=== PATIENT | male | born 1960 | race Caucasian/White ===

== ENCOUNTER 2020-02-26 10:45 | Inpatient (IN) ==
[2020-02-26 10:52] VITALS: BMI 24.0
[2020-02-26] MEDS ORDERED: NS 1000 ML 1,000 ML IV ONE (12:44)
[2020-02-26] MEDS ORDERED: REGLAN INJ 10 MG VIAL IVP ONE (12:45)
[2020-02-26 12:50] LABS: BASOPHILS # (AUTO) 0.1 X10^3/uL (0.0-0.1); BASOPHILS % (AUTO) 0.8 % (0.2-1.0); EOSINOPHILS # (AUTO) 1.5 x10^3/uL (0.0-0.2); EOSINOPHILS % (AUTO) 10.7 % (0.9-2.9); HEMATOCRIT 42.4 % (42.0-54.0); LYMPHOCYTES # (AUTO) 1.7 X10^3/uL (1.3-2.9); LYMPHOCYTES % (AUTO) 12.1 % (21.0-51.0); MEAN CORPUSCULAR HEMOGLOBIN 29.3 pg (27.0-34.0); MEAN CORPUSCULAR HGB CONC 32.9 g/dL (33.0-35.0); MEAN CORPUSCULAR VOLUME 88.9 fL (80.0-100.0); MEAN PLATELET VOLUME 6.4 fL (7.4-11.0); MONOCYTES # (AUTO) 1.6 x10^3/uL (0.3-0.8); MONOCYTES % (AUTO) 10.9 % (0.0-13.0); NEUTROPHILS # (AUTO) 9.3 x10^3/uL (2.2-4.8); NEUTROPHILS % (AUTO) 65.5 % (42.0-75.0); PLATELET COUNT 340 X10^3/uL (150.0-450.0); RED BLOOD COUNT 4.77 X10^6/uL (4.7-6.0); RED CELL DISTRIBUTION WIDTH 16.5 % (11.6-16.5); WHITE BLOOD COUNT 14.2 X10^3/uL (3.6-10.0)
[2020-02-26 12:54] LABS: ALANINE AMINOTRANSFERASE 230 Units/L (12-78); ALBUMIN 3.4 g/dL (3.4-5.0); ALKALINE PHOSPHATASE 421 Units/L (46-116); ASPARTATE AMINO TRANSFERASE 108 Units/L (15-37); BLOOD UREA NITROGEN 28 mg/dL (7-18); CALCIUM 8.9 mg/dL (8.5-10.1); CARBON DIOXIDE 27.8 mmol/L (21-32); CHLORIDE 103 mmol/L (98-107); COR NA(FOR HYPERGLY) 139 mmol/L (136-145); CREATININE 1.21 mg/dL (0.70-1.30); SODIUM 138 mmol/L (136-145); TOTAL PROTEIN 6.5 g/dL (6.4-8.2); eGFR NON BLACK RACES > 60 (>60)
--- NOTE | 2020-02-26 12:58 | DR.DIARMA ---
HPI Time seen Time Seen by Provider: 02/26/20 10:56 PCP Primary Care Physician: NOA LANDRUM Complaint Chief Complaint Doctor Comments: Patient can eat solid food but it runs through him per family. Chief Complaint:: PT. C/O DIARRHEA SINCE 01/12/20. PT. C/O ABDOMINAL PAIN. PT. HAS BEEN TAKING LOMOTIL NEEDED WITH NO IMPROVEMENT. PT. HAS NOT BEEN EATING SOLID FOOD. PT. HAS ONLY BEEN DRINKING BOOST. COVID-19 Coronavirus risk:travel/contact w/high risk person: No Has patient experienced Coronavirus symptoms: No Reviewed Nurses notes reviewed: Yes Source History Provided: Patient and Family Member Mode of Arrival Mode of Arrival: Ambulatory Timing Onset of Chief Complaint: 02/16/20 Came on: Gradually Duration Duration: Intermittent How lon Duration: Weeks Quality Quality of Diarrhea: Watery Context Onset: Spontaneous Recent: denies Travel, Contact Exposure, Antibiotic use, Laxative use, Possible spoiled food and Shellfish Diarrhea history of: None Associated signs and symptoms Associated signs and symptoms: Abdominal pain (RLQ) If abdominal pain present Quality: Aching Location of Abdominal Pain: RLQ PMH PMH Past Medical History: Yes Past Medical History: Hypothyroidism Past Medical History Comment: LEUKEMIA , mental retardation Past Surgical History: Yes Surgical History: Appendectomy, Cholecystectomy and Other Past Surgical History Comment: SKIN CANCER REMOVAL Family History History of Family Medical Conditions: Yes Family Medical History: Heart Failure Social History Does patient currently use any type of tobacco product: No Have you used tobacco products in the last 12 months: No Type of Tobacco Use: None Does any household member use tobacco: No Alcohol Use: None Do you use any recreational Drugs:: No Lives With: Family Lives Where: Home Travel Risk Coronavirus risk:travel/contact w/high risk person: No Has patient experienced Coronavirus symptoms: No Infectious screening In the last 2 months have you had wt loss of >10#?: NO Have you had fever, night sweats or hemotysis?: No Have you traveled outside the country in the last 6 months?: No Isolation: Standard ROS Review of Systems Constitutional: No Symptoms Reported Eyes: No Symptoms Reported ENTM: No Symptoms Reported Respiratoy: No Symptoms Reported Cardiovascular: No Symptoms Reported Gastrointestinal/Abdominal: Abdominal Pain Genitourinary: No Symptoms Reported Neurological: No Symptoms Reported Musculoskeletal: No Symptoms Reported Integumentary: No Symptoms Reported Hematologic/Lymphatic: No Symptoms Reported Endocrine: No Symptoms Reported Psychiatric: No Symptoms Reported All Other Systems: Reviewed and Negative PE Vital Signs Vitals: Temperature 97.2 F Pulse Rate 100 Respiratory Rate 20 Blood Pressure [Right Arm] 102/69 Blood Pressure 118/77 O2 Sat by Pulse Oximetry 95 General Limitations: No Limitations General Appearance: Alert and In No Apparent Distress Head Head Exam: Normal Inspection, Atraumatic and Normocephalic Eyes Eye exam: Normal Appearance and EOMI ENT ENT Exam: Normal Exam and Normal Oropharynx Neck Neck Exam: Normal Inspection, Full ROM and Trachea Midline Chest Chest Inspection: Normal Inspection Respiratory Respiratory Exam: Normal Lung Sounds Bilat; negative Accessory Muscle Use Respiratory Exam: Bilateral: Clear to Auscultation Cardiovascular Cardiovascular Exam: Tachycardia Abdominal Exam Abdominal Exam: Normal Inspection, Normal Bowel Sounds, Soft and Tenderness (RLQ); negative Distention and Guarding Abdominal Tenderness: RLQ Rectal Rectal: Deferred Genitourinary Scrotum: Deferred Hernia: Deferred Prostate: Deferred Extremeties Extremities Exam: Normal Inspection and Full ROM Back Back Exam: Normal Inspection Neurologic Neurological Exam: Alert, Oriented X3 and CN II-XII Intact Psychiatric Psychiatric Exam: Normal Mood Skin Skin Exam: Normal Color ROR Labs Reviewed Result Diagrams: 02/26/20 12:15 02/26/20 12:15 Laboratory: 02/26/20 12:06 Stool - Final WBC 14.2 X10^3/uL (3.6-10.0) H 02/26/20 12:15 RBC 4.77 X10^6/uL (4.7-6.0) 02/26/20 12:15 Hgb 14.0 g/dL (13.5-18.0) 02/26/20 12:15 Hct 42.4 % (42.0-54.0) 02/26/20 12:15 MCV 88.9 fL (80.0-100.0) 02/26/20 12:15 MCH 29.3 pg (27.0-34.0) 02/26/20 12:15 MCHC 32.9 g/dL (33.0-35.0) L 02/26/20 12:15 RDW 16.5 % (11.6-16.5) 02/26/20 12:15 Plt Count 340 X10^3/uL (150.0-450.0) 02/26/20 12:15 MPV 6.4 fL (7.4-11.0) L 02/26/20 12:15 Neut % (Auto) 65.5 % (42.0-75.0) 02/26/20 12:15 Lymph % (Auto) 12.1 % (21.0-51.0) L 02/26/20 12:15 [place] % (Auto) 10.9 % (0.0-13.0) 02/26/20 12:15 Eos % (Auto) 10.7 % (0.9-2.9) H 02/26/20 12:15 Baso % (Auto) 0.8 % (0.2-1.0) 02/26/20 12:15 Neut # (Auto) 9.3 x10^3/uL (2.2-4.8) H 02/26/20 12:15 Lymph # (Auto) 1.7 X10^3/uL (1.3-2.9) 02/26/20 12:15 [place] # (Auto) 1.6 x10^3/uL (0.3-0.8) H 02/26/20 12:15 Eos # (Auto) 1.5 x10^3/uL (0.0-0.2) H 02/26/20 12:15 Baso # (Auto) 0.1 X10^3/uL (0.0-0.1) 02/26/20 12:15 Absolute Nucleated RBC 0.0 /100WBC 02/26/20 12:15 Sodium 138 mmol/L (136-145) 02/26/20 12:15 Corrected Sodium 139 mmol/L (136-145) 02/26/20 12:15 Potassium 3.7 mmol/L (3.5-5.1) 02/26/20 12:15 Chloride 103 mmol/L (98-107) 02/26/20 12:15 Carbon Dioxide 27.8 mmol/L (21-32) 02/26/20 12:15 BUN 28 mg/dL (7-18) H 02/26/20 12:15 Creatinine 1.21 mg/dL (0.70-1.30) 02/26/20 12:15 Est GFR (MDRD) Af Amer > 60 (>60) 02/26/20 12:15 Est GFR (MDRD) Non-Af > 60 (>60) 02/26/20 12:15 Glucose 135 mg/dL (65-99) H 02/26/20 12:15 Calcium 8.9 mg/dL (8.5-10.1) 02/26/20 12:15 Corrected Calcium TNP 02/26/20 12:15 Total Bilirubin 1.00 mg/dL (0.2-1.0) 02/26/20 12:15 AST 108 Units/L (15-37) H 02/26/20 12:15 ALT 230 Units/L (12-78) H 02/26/20 12:15 Alkaline Phosphatase 421 Units/L (46-116) H 02/26/20 12:15 Total Protein 6.5 g/dL (6.4-8.2) 02/26/20 12:15 Albumin 3.4 g/dL (3.4-5.0) 02/26/20 12:15 Globulin 3.1 g/dL (2.5-4.5) 02/26/20 12:15 Albumin/Globulin Ratio 1.1 Ratio (1.1-2.1) 02/26/20 12:15 Lipase 92 Units/L (73-393) 02/26/20 12:15 Stool Description 20g liquid brown 02/26/20 12:06 Stl Occult Blood (IFOB) Positive (NEGATIVE) A 02/26/20 12:06 Stool for White Cells Positive (NEGATIVE) A 02/26/20 12:06 Stl C. diff Tox B Gene Negative (NEGATIVE) 02/26/20 12:06 Stl C. diff [id number] Negative (NEGATIVE) 02/26/20 12:06 XRAY XRAY Interpreted by: Radiologist X-ray Results: CT abdo/pelvis: liver lesions and cecum thickening with adenopathy Opioid Opioid Risk Tool Age (Sreekanth box if 16-45): No History of Preadolescent Sexual Abuse: No Total: 0 Total Score Risk Category: Low Risk Copyright: Mcfadden predicting aberrant behaviors
[2020-02-26] MEDS ORDERED: NS 1000 ML 1,000 ML ONE ×2 (13:05→17:36)
[2020-02-26] MEDS ORDERED: REGLAN INJ 10 MG VIAL ONE (13:05)
[2020-02-26] MEDS ORDERED: DEMEROL INJ IVP ONE (17:03)
--- NOTE | 2020-02-26 17:07 | CT ---
ABDOMEN/PELVIS WITH CONHISTORY: RLQ PAINComparison:NoneTechnique:Multiple axial images of the abdomen and pelvis were obtained from the lung bases to the pubic symphysis following the administration of IV contrast as well as oral contrast . Dose reduction techniques including Automated Exposure Control (AEC) and adjustment of mA and kV were utlized.Findings:The heart is normal in size. There is no pericardial effusion. Bibasilar perilymphatic/peribronchovascular thickening and nodularity with regions of peripheral atelectasis.There are innumerable irregular and hypoenhancing lesions within the liver. The spleen is enlarged. The largest liver lesion measures approximately 5.2 cm in the posterior right lobe on series 5, image 20. Lesions are present throughout both the right and left liver. There is some indistinct soft tissue throughout the thomas hepatis region. The portal vein is patent. No ductal dilitation. Gallbladder absent. The pancreas is unremarkable. Adrenal glands are normal. Enhancement of the right-sided ureteral lining is seen with some possible patchy hypo enhancement of the right kidneyThere is thickening the region of the cecum with some extensive peripheral adenopathy. Extensive retroperitoneal adenopathy mesenteric adenopathy also present. . No free fluid or fluid collections.The bladder is normal in appearance. Pelvic structures not well seen secondary to bilateral hip hardware. Bilateral abnormal pelvic lymph nodes are also present.No aggressive osseous lesions.IMPRESSION:1. Findings as above most concerning for metastatic malignancy, likely: Primary in the region of the cecum.2. Enhancement of the urothelium lining on the right with some patchy hypo enhancement of the right kidney. Ascending urinary tract infection cannot be excluded. Correlate clinically.Electronically signed by: WON LORENZO (Feb 26, 2020 17:05:30)
[2020-02-26] MEDS ORDERED: DEMEROL INJ ONE (17:15)
[2020-02-26] MEDS: NS 1000 ML 1,000 ML IV SCH (17:46)
[2020-02-26] MEDS: BUTT CREAM (COMPOUND) TOP PRN (22:47)
[2020-02-27] MEDS: NS 1000 ML 1,000 ML IV SCH ×5 (02:02→21:29)
[2020-02-27 06:08] LABS: BASOPHILS # (AUTO) 0.1 X10^3/uL (0.0-0.1); BASOPHILS % (AUTO) 0.6 % (0.2-1.0); EOSINOPHILS # (AUTO) 2.1 x10^3/uL (0.0-0.2); HEMATOCRIT 39.6 % (42.0-54.0); HEMOGLOBIN 12.9 g/dL (13.5-18.0); LYMPHOCYTES # (AUTO) 1.9 X10^3/uL (1.3-2.9); LYMPHOCYTES % (AUTO) 14.5 % (21.0-51.0); MEAN CORPUSCULAR HEMOGLOBIN 29.1 pg (27.0-34.0); MEAN CORPUSCULAR HGB CONC 32.6 g/dL (33.0-35.0); MEAN CORPUSCULAR VOLUME 89.3 fL (80.0-100.0); MEAN PLATELET VOLUME 6.4 fL (7.4-11.0); MONOCYTES # (AUTO) 1.7 x10^3/uL (0.3-0.8); MONOCYTES % (AUTO) 13.3 % (0.0-13.0); NEUTROPHILS # (AUTO) 7.1 x10^3/uL (2.2-4.8); NEUTROPHILS % (AUTO) 55.6 % (42.0-75.0); PLATELET COUNT 287 X10^3/uL (150.0-450.0); RED BLOOD COUNT 4.43 X10^6/uL (4.7-6.0); RED CELL DISTRIBUTION WIDTH 16.4 % (11.6-16.5); WHITE BLOOD COUNT 12.8 X10^3/uL (3.6-10.0)
[2020-02-27 06:10] LABS: ALANINE AMINOTRANSFERASE 187 Units/L (12-78); ALBUMIN 2.8 g/dL (3.4-5.0); ALKALINE PHOSPHATASE 345 Units/L (46-116); ASPARTATE AMINO TRANSFERASE 82 Units/L (15-37); BLOOD UREA NITROGEN 18 mg/dL (7-18); CALCIUM 7.8 mg/dL (8.5-10.1); CARBON DIOXIDE 24.2 mmol/L (21-32); CHLORIDE 105 mmol/L (98-107); COR CA(FOR HYPOALB) 8.8 mg/dL (8.5-10.1); CREATININE 0.94 mg/dL (0.70-1.30); SODIUM 137 mmol/L (136-145); TOTAL PROTEIN 5.6 g/dL (6.4-8.2); eGFR NON BLACK RACES > 60 (>60)
[2020-02-27] MEDS: ROCEPHIN VIAL 1 GRAM 1 G in NS 100 ML IV + SPIKE MINIBAG* 100 ML IV SCH (11:20)
[2020-02-27] MEDS: LOVENOX INJ 40 MG SYR SC SCH (11:21)
[2020-02-27] MEDS: DEMEROL INJ IVP PRN ×2 (16:17→21:29)
--- NOTE | 2020-02-27 19:36 | DR.H&P ---
H&P - History & Physical for Day of: H&P Date: 02/26/20 - Chief Complaint Chief Complaint: ABDOMINAL PAIN, DIARRHEA - History of Present Illness History of Present Illness: IS A 60 YEAR OLD PATIENT OF OURS WHO PRESENTED TO THE ER WITH COMPLAINT OF DIARRHEA SINCE 01/12/20 AND DIFFUSE ABDOMINAL PAIN. PATIENT IS INTILLECTUALLY CHALLENGED. HIS CAREGIVER REPORTS THAT HE HAS BEEN TAKING LOMOTIL NEEDED. SHE REPORTS HE HAS ONLY BEEN DRINKING BOOST AND HAS NOT BEEN EATING ANY SOLID FOOD. HE IS UNABLE TO APPROPRIATELY CHARACTERIZE HIS PAIN. PATIENT STATES, I DONT FEEL GOOD. HIS PMH INCLUDES HYPOTHYROIDISM, LYMPHOMA, MENTAL RETARDATION, APPENDECTOMY, AND CHOLECYSTECTOMY. ON ARRIVAL, VITALS WERE 97.2-100-17-95%-118/77. LABS WERE OBTAINED. ABNORMAL LAB VALUES INCLUDE THE FOLLOWING: WBC 14.2, BUN 28, GLUCOSE 135, AST 108, ALT 230, ALK PHOS 421. STOOL POSITIVE FOR OCCULT BLOOD AND WHITE CELLS. STOOL CULTURE WAS SET UP. AN ABDOMEN/PELVIS CT WITH CONTRAST WAS OBTAINED AND REVEALED: The heart is normal in size. There is no pericardial effusion. Bibasilar perilymphatic/peribronchovascular thickening and nodularity with regions of peripheral atelectasis. There are innumerable irregular and hypoenhancing lesions within the liver. The spleen is enlarged. The largest liver lesion measures approximately 5.2 cm in the posterior right lobe on series 5, image 20. Lesions are present throughout both the right and left liver. There is some indistinct soft tissue throughout the thomas hepatis region. The portal vein is patent. No ductal dilitation. Gallbladder absent. The pancreas is unremarkable. Adrenal glands are normal. Enhancement of the right-sided ureteral lining is seen with some possible patchy hypo enhancement of the right kidney. There is thickening the region of the cecum with some extensive peripheral adenopathy. Extensive retroperitoneal adenopathy mesenteric adenopathy also present. No free fluid or fluid collections. The bladder is normal in appearance. Pelvic structures not well seen secondary to bilateral hip hardware. Bilateral abnormal pelvic lymph nodes are also present. No aggressive osseous lesions. HE WAS GIVEN DEMEROL 25MG IV X 1, REGLAN 10MG IV X 1 DOSE, AND A NORMAL SALINE BOLUS. HE WAS ADMITTED FOR FURTHER EVALUATION AND TREATMENT OF METASTATIC CANCER TO LIVER, INTRACTABLE DIARRHEA, AND LEUKOCYTOSIS. HE WAS STARTED ON NS AT 125 ML/HR, CIPRO 1G IV DAILY, LOVENOX 40MG SC DAILY, DEMEROL 25MG IV Q4H PRN, AND ZOFRAN 25MG IV Q4H PRN. A CEA IS PENDING. OTHERWISE, WE PLAN TO FOLLOW UP WITH AM LABS AND CONTINUE TO MONITOR. - Past Medical History Past Medical History: Hypothyroidism Additional Medical History: , HX OF LYMPHOMA - Past Surgical History Surgical History: Appendectomy, Cholecystectomy, Ortho Surgery, Other - Family History Family Medical History: Heart Failure - Social History Does patient currently use any type of tobacco product: No Have you used tobacco products in the last 12 months: No Type of Tobacco Use: None Does any household member use tobacco: No Alcohol Use: None Drug Use: None - Medications Home Medications: levofloxacin [From Levaquin] Allergy (Verified 02/26/20 10:52) - Review of Systems Constitutional: Weakness Eyes: No Symptoms Reported ENT: No Symptoms Reported Respiratory: No Symptoms Reported Cardiovascular: No Symptoms Reported Gastrointestinal: See HPI, Nausea, Abdominal Pain, Diarrhea Genitourinary: No Symptoms Reported Musculoskeletal: No Symptoms Reported Skin: No Symptoms Reported Neurological: Weakness - Physical Exam Vital Signs: Temperature 98.2 F Pulse Rate [Bilateral Radial] 81 Pulse Rate 96 Respiratory Rate 20 Blood Pressure [Right Arm] 120/72 Blood Pressure 118/77 O2 Sat by Pulse Oximetry 96 Oriented: Person, Place Eyes: Normal Ear: Normal Nose: Normal Throat: Normal Respiratory: Diminished Throughout Cardiovascular: Normal : Normal Auscultation: Bowel Sounds: Increased Palpation: Normal Tenderness: Normal Skin: Normal Musculoskeletal: Normal Psychiatric: Normal Mood Description: Calm Affect: Normal Speech Pattern: Clear - Assessment/Plan (1) Metastatic disease Qualifiers: Area of secondary neoplastic involvement: unspecified site Qualified Code(s): C79.9 - Secondary malignant neoplasm of unspecified site Status: Acute Plan: ADMIT, NS AT 125 ML/HR, CIPRO 1G IV DAILY, LOVENOX 40MG SC DAILY, DEMEROL 25MG IV Q4H PRN, AND ZOFRAN 25MG IV Q4H PRN. (2) Intractable diarrhea Status: Acute Plan: STOOL CULTURE PENDING. ROCEPHIN 1G IV DAILY, CONTINUE TO MONITOR (3) Leukocytosis Qualifiers: Leukocytosis type: unspecified Qualified Code(s): D72.829 - Elevated white blood cell count, unspecified Status: Acute (4) History of lymphoma Status: Chronic - Allergies Allergies/Adverse Reactions: Allergies Allergy/AdvReac Type Severity Reaction Status Date / Time levofloxacin [From Levaquin] Allergy Verified 02/26/20 10:52
[2020-02-27 20:06] LABS: BILIRUBIN,URINE NEGATIVE (NEGATIVE); BLOOD/HEMOGLOBIN,URINE 1+ (NEGATIVE); GLUCOSE, URINE NEGATIVE (NEGATIVE); KETONES,URINE NEGATIVE (NEGATIVE); LEUKOCYTE ESTERASE ,URINE 3+ (NEGATIVE); NITRITES,URINE POSITIVE (NEGATIVE); PROTEIN,URINE 2+ (NEGATIVE); UROBILINOGEN,URINE NORMAL (NORMAL)
[2020-02-27 20:15] LABS: APPEARANCE,URINE CLEAR (CLEAR); COLOR,URINE YELLOW (YELLOW); SQUAMOUS EPITHELIAL CELL,UR NEGATIVE /HPF (NEGATIVE)
[2020-02-27 20:16] LABS: BACTERIA,URINE NEGATIVE /HPF (NEGATIVE)
[2020-02-28] MEDS: DEMEROL INJ IVP PRN ×3 (03:10→21:08)
[2020-02-28] MEDS: NS 1000 ML 1,000 ML IV SCH ×3 (03:16→16:15)
[2020-02-28 05:25] LABS: BASOPHILS # (AUTO) 0.1 X10^3/uL (0.0-0.1); BASOPHILS % (AUTO) 0.5 % (0.2-1.0); EOSINOPHILS # (AUTO) 2.4 x10^3/uL (0.0-0.2); EOSINOPHILS % (AUTO) 19.3 % (0.9-2.9); HEMATOCRIT 40.1 % (42.0-54.0); HEMOGLOBIN 12.9 g/dL (13.5-18.0); LYMPHOCYTES % (AUTO) 15.9 % (21.0-51.0); MEAN CORPUSCULAR HEMOGLOBIN 29.1 pg (27.0-34.0); MEAN CORPUSCULAR HGB CONC 32.1 g/dL (33.0-35.0); MEAN CORPUSCULAR VOLUME 90.7 fL (80.0-100.0); MEAN PLATELET VOLUME 6.8 fL (7.4-11.0); MONOCYTES # (AUTO) 1.7 x10^3/uL (0.3-0.8); MONOCYTES % (AUTO) 13.5 % (0.0-13.0); NEUTROPHILS # (AUTO) 6.3 x10^3/uL (2.2-4.8); NEUTROPHILS % (AUTO) 50.8 % (42.0-75.0); PLATELET COUNT 257 X10^3/uL (150.0-450.0); RED BLOOD COUNT 4.42 X10^6/uL (4.7-6.0); RED CELL DISTRIBUTION WIDTH 16.5 % (11.6-16.5); WHITE BLOOD COUNT 12.4 X10^3/uL (3.6-10.0)
[2020-02-28 05:41] LABS: ALANINE AMINOTRANSFERASE 151 Units/L (12-78); ALBUMIN 2.6 g/dL (3.4-5.0); ALKALINE PHOSPHATASE 306 Units/L (46-116); ASPARTATE AMINO TRANSFERASE 56 Units/L (15-37); BLOOD UREA NITROGEN 11 mg/dL (7-18); CALCIUM 7.5 mg/dL (8.5-10.1); CARBON DIOXIDE 23.6 mmol/L (21-32); CHLORIDE 106 mmol/L (98-107); COR CA(FOR HYPOALB) 8.6 mg/dL (8.5-10.1); CREATININE 0.92 mg/dL (0.70-1.30); SODIUM 138 mmol/L (136-145); TOTAL PROTEIN 5.4 g/dL (6.4-8.2); eGFR NON BLACK RACES > 60 (>60)
[2020-02-28] MEDS ORDERED: KLOR-CON PO PRN (05:57)
[2020-02-28] MEDS ORDERED: POTASSIUM CHL 40 MEQ/NS 0.45% 500 ML IV PRN (05:57)
[2020-02-28] MEDS ORDERED: POTASSIUM CHL 60 MEQ/NS 0.45% 500 ML IV PRN (05:57)
[2020-02-28] MEDS ORDERED: K-DUR TAB 20 MEQ PO PRN (05:57)
[2020-02-28] MEDS ORDERED: K-RIDER 10 MEQ/NS 100 ML 10 MEQ/100 ML BAG IV PRN (05:57)
[2020-02-28] MEDS ORDERED: MICRO K EXTEN CAP 10 MEQ PO PRN (05:57)
[2020-02-28] MEDS ORDERED: POTASSIUM CHLORIDE LIQ 20 MEQ UDC PO PRN (05:57)
[2020-02-28] MEDS: ROCEPHIN VIAL 1 GRAM 1 G in NS 100 ML IV + SPIKE MINIBAG* 100 ML IV SCH (08:52)
[2020-02-28] MEDS: LOVENOX INJ 40 MG SYR SC SCH (08:53)
[2020-02-28] MEDS: FORTAZ or TAZICEF VIAL INJ 1 G in NS 100 ML IV + SPIKE MINIBAG* 100 ML IV SCH ×3 (13:45→21:11)
[2020-02-28] MEDS: LOMOTIL PO SCH ×2 (14:07→21:05)
[2020-02-29] MEDS: NS 1000 ML 1,000 ML IV SCH ×5 (00:47→22:29)
[2020-02-29] MEDS: DEMEROL INJ IVP PRN ×3 (01:42→19:40)
[2020-02-29 05:32] LABS: BASOPHILS % (AUTO) 0.3 % (0.2-1.0); EOSINOPHILS # (AUTO) 2.7 x10^3/uL (0.0-0.2); EOSINOPHILS % (AUTO) 21.8 % (0.9-2.9); HEMATOCRIT 39.9 % (42.0-54.0); HEMOGLOBIN 12.8 g/dL (13.5-18.0); LYMPHOCYTES # (AUTO) 1.9 X10^3/uL (1.3-2.9); LYMPHOCYTES % (AUTO) 15.6 % (21.0-51.0); MEAN CORPUSCULAR HEMOGLOBIN 29.2 pg (27.0-34.0); MEAN CORPUSCULAR HGB CONC 32.1 g/dL (33.0-35.0); MEAN CORPUSCULAR VOLUME 90.8 fL (80.0-100.0); MEAN PLATELET VOLUME 6.7 fL (7.4-11.0); MONOCYTES # (AUTO) 1.2 x10^3/uL (0.3-0.8); MONOCYTES % (AUTO) 10.2 % (0.0-13.0); NEUTROPHILS # (AUTO) 6.4 x10^3/uL (2.2-4.8); NEUTROPHILS % (AUTO) 52.1 % (42.0-75.0); PLATELET COUNT 253 X10^3/uL (150.0-450.0); RED CELL DISTRIBUTION WIDTH 16.5 % (11.6-16.5); WHITE BLOOD COUNT 12.2 X10^3/uL (3.6-10.0)
[2020-02-29 05:45] LABS: ALANINE AMINOTRANSFERASE 119 Units/L (12-78); ALBUMIN 2.4 g/dL (3.4-5.0); ALKALINE PHOSPHATASE 299 Units/L (46-116); ASPARTATE AMINO TRANSFERASE 48 Units/L (15-37); BLOOD UREA NITROGEN 8 mg/dL (7-18); CALCIUM 7.6 mg/dL (8.5-10.1); CARBON DIOXIDE 27.2 mmol/L (21-32); CHLORIDE 107 mmol/L (98-107); COR CA(FOR HYPOALB) 8.9 mg/dL (8.5-10.1); CREATININE 0.81 mg/dL (0.70-1.30); SODIUM 141 mmol/L (136-145); TOTAL PROTEIN 5.3 g/dL (6.4-8.2); eGFR NON BLACK RACES > 60 (>60)
[2020-02-29 05:56] LABS: BAND NEUTROPHILS % 1 % (0-10); PLATELET MORPHOLOGY COMMENT NORMAL (NORMAL)
[2020-02-29] MEDS: FORTAZ or TAZICEF VIAL INJ 1 G in NS 100 ML IV + SPIKE MINIBAG* 100 ML IV SCH ×3 (06:32→21:01)
[2020-02-29] MEDS: LOVENOX INJ 40 MG SYR SC SCH (10:10)
[2020-02-29] MEDS: LOMOTIL PO SCH ×2 (10:10→21:00)
--- NOTE | 2020-02-29 14:02 | PCM.PROG ---
Progress Note - Progress Note for Day of Date of Exam: 02/28/20 - Subjective Subjective: WAS ADMITTED FOR TREATMENT OF METASTATIC DISEASE, INTRACTABLE DIARRHEA, LEUKOCYTOSIS. HE HAS A HISTORY OF LYMPHOMA. TODAY, HE IS ALERT, LYING IN BED ON MORNING ROUNDS. HE CONTINUE WITH COMPLAINTS OF DIARRHEA TODAY. HE STATES, I DONT FEEL GOOD. I WANT TO STAY. ON EXAMINATION, HEART IS REGULAR IN RATE AND RHYTHM. BILATERAL LUNGS ARE NOTED WITH DIMINISHED LUNG SOUNDS THROUGHOUT. ABDOMEN IS ROUND, SOFT, AND NOTED WITH DIFFUSE TENDERNESS. INCREASED BOWEL SOUNDS NOTED. HIS VITALS THIS MORNING ARE: 98.2-76-20-91%NC-127/80. LABS WERE OBTAINED. ABNORMAL LAB VALUES INCLUDE THE FOLLOWING: WBC 12.4, RBC 4.42, HGB 12.9, HCT 40.1, POTASSIUM 3.4, CALCIUM 7.5, AST 56, ALT 151, ALK PHOS 306, TOTAL PROTEIN 5.4, ALBUMIN 2.6. STOOL CULTURES ARE PENDING. CEA IS PENDING. STOOL CULTURES ARE POSITIVE FOR OCCULT BLOOD AND WHITE CELLS. HE IS CURRENTLY RECEIVING NS AT 125 ML/HR, CIPRO 1G IV DAILY, LOVENOX 40MG SC DAILY, DEMEROL 25MG IV Q4H PRN, AND ZOFRAN 25MG IV Q4H PRN. WE WILL CONTINUE WITH CURRENT PLAN OF CARE TODAY AND ADD LOMOTIL 1 TAB PO BID. WE WILL DISCONTINUE THE CIPRO AND ADD FORTAZ 1G IV Q8H. OTHERWISE, WE WILL FOLLOW UP WITH AM LABS AND CONTINUE TO MONITOR. - Past Medical Family Social History Past Med/Fam/Surg Hx: No changes since H&P Allergies: Allergies levofloxacin [From Levaquin] Allergy (Verified 02/26/20 10:52) - Review of Systems ROS: No change since H&P - Vital Signs and I&O's Vital Signs: Temperature 98 F Pulse Rate [Bilateral Radial] 92 Pulse Rate 70 Respiratory Rate 18 Blood Pressure [Right Arm] 178/76 Blood Pressure 118/77 O2 Sat by Pulse Oximetry 100 Intake and Output: Intake & Output 02/27/20 02/28/20 02/29/20 03/01/20 11:59 11:59 11:59 11:59 Intake Total 2010 3216 / 3216 4882 / 4882 Output Total 475 / 475 525 / 525 900 / 900 Balance 1536 / 1536 2691 / 2691 3982 / 3982 - Physical Exam Oriented: Person, Place Eyes: Normal Ear: Normal Nose: Normal Throat: Normal Cardiovascular: Normal : Normal Auscultation: Bowel Sounds: Increased Palpation: Normal Tenderness: Normal Skin: Normal Musculoskeletal: Normal Psychiatric: Normal Mood Description: Calm Affect: Normal Speech Pattern: Clear, Appropriate - Laboratory and Diagnostics Result Diagrams: 02/29/20 04:14 02/29/20 04:14 Labs: 02/27/20 19:40 Urine,Clean Catch Urine Culture - Preliminary 02/26/20 12:06 Stool Stool Culture - Final 02/26/20 12:06 Stool - Final Laboratory WBC 12.2 X10^3/uL (3.6-10.0) H 02/29/20 04:14 RBC 4.40 X10^6/uL (4.7-6.0) L 02/29/20 04:14 Hgb 12.8 g/dL (13.5-18.0) L 02/29/20 04:14 Hct 39.9 % (42.0-54.0) L 02/29/20 04:14 MCV 90.8 fL (80.0-100.0) 02/29/20 04:14 MCH 29.2 pg (27.0-34.0) 02/29/20 04:14 MCHC 32.1 g/dL (33.0-35.0) L 02/29/20 04:14 RDW 16.5 % (11.6-16.5) 02/29/20 04:14 Plt Count 253 X10^3/uL (150.0-450.0) 02/29/20 04:14 Plt Count Comment Adequate (ADEQUATE) 02/29/20 04:14 MPV 6.7 fL (7.4-11.0) L 02/29/20 04:14 Neut % (Auto) 52.1 % (42.0-75.0) 02/29/20 04:14 Lymph % (Auto) 15.6 % (21.0-51.0) L 02/29/20 04:14 [place] % (Auto) 10.2 % (0.0-13.0) 02/29/20 04:14 Eos % (Auto) 21.8 % (0.9-2.9) H 02/29/20 04:14 Baso % (Auto) 0.3 % (0.2-1.0) 02/29/20 04:14 Neut # (Auto) 6.4 x10^3/uL (2.2-4.8) H 02/29/20 04:14 Lymph # (Auto) 1.9 X10^3/uL (1.3-2.9) 02/29/20 04:14 [place] # (Auto) 1.2 x10^3/uL (0.3-0.8) H 02/29/20 04:14 Eos # (Auto) 2.7 x10^3/uL (0.0-0.2) H 02/29/20 04:14 Baso # (Auto) 0.0 X10^3/uL (0.0-0.1) 02/29/20 04:14 Absolute Nucleated RBC 0.0 /100WBC 02/29/20 04:14 Total Counted 100 02/29/20 04:14 Neutrophils % (Manual) 48 % (39-76) 02/29/20 04:14 Band Neutrophils % 1 % (0-10) 02/29/20 04:14 Lymphocytes % (Manual) 15 % (13-43) 02/29/20 04:14 Monocytes % (Manual) 9 % (4-9) 02/29/20 04:14 Eosinophils % (Manual) 27 % (0-6) H 02/29/20 04:14 Plt Morphology Comment Normal (NORMAL) 02/29/20 04:14 RBC Morphology Normal (NORMAL) 02/29/20 04:14 Sodium 141 mmol/L (136-145) 02/29/20 04:14 Corrected Sodium TNP 02/29/20 04:14 Potassium 3.8 mmol/L (3.5-5.1) 02/29/20 04:14 Chloride 107 mmol/L (98-107) 02/29/20 04:14 Carbon Dioxide 27.2 mmol/L (21-32) 02/29/20 04:14 BUN 8 mg/dL (7-18) 02/29/20 04:14 Creatinine 0.81 mg/dL (0.70-1.30) 02/29/20 04:14 Est GFR (MDRD) Af Amer > 60 (>60) 02/29/20 04:14 Est GFR (MDRD) Non-Af > 60 (>60) 02/29/20 04:14 Glucose 90 mg/dL (65-99) 02/29/20 04:14 Calcium 7.6 mg/dL (8.5-10.1) L 02/29/20 04:14 Corrected Calcium 8.9 mg/dL (8.5-10.1) 02/29/20 04:14 Magnesium 1.7 mg/dL (1.7-2.9) 02/28/20 04:28 Total Bilirubin 0.50 mg/dL (0.2-1.0) 02/29/20 04:14 AST 48 Units/L (15-37) H 02/29/20 04:14 ALT 119 Units/L (12-78) H 02/29/20 04:14 Alkaline Phosphatase 299 Units/L (46-116) H 02/29/20 04:14 Total Protein 5.3 g/dL (6.4-8.2) L 02/29/20 04:14 Albumin 2.4 g/dL (3.4-5.0) L 02/29/20 04:14 Globulin 2.9 g/dL (2.5-4.5) 02/29/20 04:14 Albumin/Globulin Ratio 0.8 Ratio (1.1-2.1) L 02/29/20 04:14 Lipase 92 Units/L (73-393) 02/26/20 12:15 Carcinoembryonic Ag 8.5 ng/mL (0.0-3.0) H 02/26/20 12:15 Specimen Type Clean catch urine 02/27/20 19:40 Urine Color Yellow (YELLOW) 02/27/20 19:40 Urine Appearance Clear (CLEAR) 02/27/20 19:40 Urine pH 6.0 (5.0 - 8.0) 02/27/20 19:40 Ur Specific [place] 1.015 (1.000-1.030) 02/27/20 19:40 Urine Protein 2+ (NEGATIVE) 02/27/20 19:40 Urine Glucose (UA) Negative (NEGATIVE) 02/27/20 19:40 Urine Ketones Negative (NEGATIVE) 02/27/20 19:40 Urine Occult Blood 1+ (NEGATIVE) 02/27/20 19:40 Urine Nitrite Positive (NEGATIVE) 02/27/20 19:40 Urine Bilirubin Negative (NEGATIVE) 02/27/20 19:40 Urine Urobilinogen Normal (NORMAL) 02/27/20 19:40 Ur Leukocyte Esterase 3+ (NEGATIVE) 02/27/20 19:40 Urine RBC 5-10 /HPF (0-3) A 02/27/20 19:40 Urine WBC 30-50 /HPF (0-5) A 02/27/20 19:40 Ur Squamous Epith Cells Negative /HPF (NEGATIVE) 02/27/20 19:40 Urine Bacteria Negative /HPF (NEGATIVE) 02/27/20 19:40 Ur Culture Indicated? Yes/culture set up 02/27/20 19:40 Stool Description 20g liquid brown 02/26/20 12:06 Stl Occult Blood (IFOB) Positive (NEGATIVE) A 02/26/20 12:06 Stool for White Cells Positive (NEGATIVE) A 02/26/20 12:06 Stl C. diff Tox B Gene Negative (NEGATIVE) 02/26/20 12:06 Stl C. diff [id number] Negative (NEGATIVE) 02/26/20 12:06 - Plan (1) Metastatic disease Status: Acute Qualifiers: Area of secondary neoplastic involvement: unspecified site Qualified Code(s): C79.9 - Secondary malignant neoplasm of unspecified site Plan: NS AT 125 ML/HR, FORTAZ 1 IV Q8H, LOVENOX 40MG SC DAILY, DEMEROL 25MG IV Q4H PRN, LOMOTIL 1 TAB QID, AND ZOFRAN 25MG IV Q4H PRN. (2) Intractable diarrhea Status: Acute Plan: STOOL CULTURE PENDING. FORTAZ 1G IV Q8H, CONTINUE TO MONITOR (3) Leukocytosis Status: Acute Qualifiers: Leukocytosis type: unspecified Qualified Code(s): D72.829 - Elevated white blood cell count, unspecified (4) History of lymphoma Status: Chronic
--- NOTE | 2020-02-29 14:04 | PCM.PROG ---
Progress Note - Progress Note for Day of Date of Exam: 02/29/20 - Subjective Subjective: WAS ADMITTED FOR TREATMENT OF METASTATIC DISEASE, INTRACTABLE DIARRHEA, LEUKOCYTOSIS. HE HAS A HISTORY OF LYMPHOMA. TODAY, HE IS ALERT, LYING IN BED ON MORNING ROUNDS. HE CONTINUE WITH COMPLAINTS OF DIARRHEA TODAY. HE STATES, I DONT FEEL GOOD. I WANT TO STAY. ON EXAMINATION, HEART IS REGULAR IN RATE AND RHYTHM. BILATERAL LUNGS ARE NOTED WITH DIMINISHED LUNG SOUNDS THROUGHOUT. ABDOMEN IS ROUND, SOFT, AND NOTED WITH DIFFUSE TENDERNESS. INCREASED BOWEL SOUNDS NOTED. HIS VITALS THIS MORNING ARE: 98.0-92-20-100%-178/76. LABS WERE OBTAINED. ABNORMAL LAB VALUES INCLUDE THE FOLLOWING: WBC 12.4, RBC 4.40, HGB 12.8, HCT 39.9, CALCIUM 7.6, AST 48, ALT 119, ALK PHOS 299, TOTAL PROTEIN 5.3, ALBUMIN 2.4. STOOL CULTURES ARE PENDING. CEA IS PENDING. STOOL CULTURES ARE POSITIVE FOR OCCULT BLOOD AND WHITE CELLS. HE IS CURRENTLY RECEIVING NS AT 125 ML/HR, FORTAZ 1G IV Q8H, LOVENOX 40MG SC DAILY, DEMEROL 25MG IV Q4H PRN, LOMOTIL 1 TAB PO BID, AND ZOFRAN 25MG IV Q4H PRN. WE WILL CONTINUE WITH CURRENT PLAN OF CARE TODAY. OTHERWISE, WE WILL FOLLOW UP WITH AM LABS AND CONTINUE TO MONITOR. - Past Medical Family Social History Past Med/Fam/Surg Hx: No changes since H&P Allergies: Allergies levofloxacin [From Levaquin] Allergy (Verified 02/26/20 10:52) - Review of Systems ROS: No change since H&P - Vital Signs and I&O's Vital Signs: Temperature 98 F Pulse Rate [Bilateral Radial] 92 Pulse Rate 70 Respiratory Rate 18 Blood Pressure [Right Arm] 178/76 Blood Pressure 118/77 O2 Sat by Pulse Oximetry 100 Intake and Output: Intake & Output 02/27/20 02/28/20 02/29/20 03/01/20 11:59 11:59 11:59 11:59 Intake Total 2010 3216 / 3216 4882 / 4882 Output Total 475 / 475 525 / 525 900 / 900 Balance 1536 / 1536 2691 / 2691 3982 / 3982 - Physical Exam Oriented: Person, Place Eyes: Normal Ear: Normal Nose: Normal Throat: Normal Cardiovascular: Normal : Normal Auscultation: Bowel Sounds: Increased Tenderness: Normal Skin: Normal Musculoskeletal: Normal Psychiatric: Normal Mood Description: Calm Affect: Normal Speech Pattern: Clear, Appropriate - Laboratory and Diagnostics Result Diagrams: 02/29/20 04:14 02/29/20 04:14 Labs: 02/27/20 19:40 Urine,Clean Catch Urine Culture - Preliminary 02/26/20 12:06 Stool Stool Culture - Final 02/26/20 12:06 Stool - Final Laboratory WBC 12.2 X10^3/uL (3.6-10.0) H 02/29/20 04:14 RBC 4.40 X10^6/uL (4.7-6.0) L 02/29/20 04:14 Hgb 12.8 g/dL (13.5-18.0) L 02/29/20 04:14 Hct 39.9 % (42.0-54.0) L 02/29/20 04:14 MCV 90.8 fL (80.0-100.0) 02/29/20 04:14 MCH 29.2 pg (27.0-34.0) 02/29/20 04:14 MCHC 32.1 g/dL (33.0-35.0) L 02/29/20 04:14 RDW 16.5 % (11.6-16.5) 02/29/20 04:14 Plt Count 253 X10^3/uL (150.0-450.0) 02/29/20 04:14 Plt Count Comment Adequate (ADEQUATE) 02/29/20 04:14 MPV 6.7 fL (7.4-11.0) L 02/29/20 04:14 Neut % (Auto) 52.1 % (42.0-75.0) 02/29/20 04:14 Lymph % (Auto) 15.6 % (21.0-51.0) L 02/29/20 04:14 [place] % (Auto) 10.2 % (0.0-13.0) 02/29/20 04:14 Eos % (Auto) 21.8 % (0.9-2.9) H 02/29/20 04:14 Baso % (Auto) 0.3 % (0.2-1.0) 02/29/20 04:14 Neut # (Auto) 6.4 x10^3/uL (2.2-4.8) H 02/29/20 04:14 Lymph # (Auto) 1.9 X10^3/uL (1.3-2.9) 02/29/20 04:14 [place] # (Auto) 1.2 x10^3/uL (0.3-0.8) H 02/29/20 04:14 Eos # (Auto) 2.7 x10^3/uL (0.0-0.2) H 02/29/20 04:14 Baso # (Auto) 0.0 X10^3/uL (0.0-0.1) 02/29/20 04:14 Absolute Nucleated RBC 0.0 /100WBC 02/29/20 04:14 Total Counted 100 02/29/20 04:14 Neutrophils % (Manual) 48 % (39-76) 02/29/20 04:14 Band Neutrophils % 1 % (0-10) 02/29/20 04:14 Lymphocytes % (Manual) 15 % (13-43) 02/29/20 04:14 Monocytes % (Manual) 9 % (4-9) 02/29/20 04:14 Eosinophils % (Manual) 27 % (0-6) H 02/29/20 04:14 Plt Morphology Comment Normal (NORMAL) 02/29/20 04:14 RBC Morphology Normal (NORMAL) 02/29/20 04:14 Sodium 141 mmol/L (136-145) 02/29/20 04:14 Corrected Sodium TNP 02/29/20 04:14 Potassium 3.8 mmol/L (3.5-5.1) 02/29/20 04:14 Chloride 107 mmol/L (98-107) 02/29/20 04:14 Carbon Dioxide 27.2 mmol/L (21-32) 02/29/20 04:14 BUN 8 mg/dL (7-18) 02/29/20 04:14 Creatinine 0.81 mg/dL (0.70-1.30) 02/29/20 04:14 Est GFR (MDRD) Af Amer > 60 (>60) 02/29/20 04:14 Est GFR (MDRD) Non-Af > 60 (>60) 02/29/20 04:14 Glucose 90 mg/dL (65-99) 02/29/20 04:14 Calcium 7.6 mg/dL (8.5-10.1) L 02/29/20 04:14 Corrected Calcium 8.9 mg/dL (8.5-10.1) 02/29/20 04:14 Magnesium 1.7 mg/dL (1.7-2.9) 02/28/20 04:28 Total Bilirubin 0.50 mg/dL (0.2-1.0) 02/29/20 04:14 AST 48 Units/L (15-37) H 02/29/20 04:14 ALT 119 Units/L (12-78) H 02/29/20 04:14 Alkaline Phosphatase 299 Units/L (46-116) H 02/29/20 04:14 Total Protein 5.3 g/dL (6.4-8.2) L 02/29/20 04:14 Albumin 2.4 g/dL (3.4-5.0) L 02/29/20 04:14 Globulin 2.9 g/dL (2.5-4.5) 02/29/20 04:14 Albumin/Globulin Ratio 0.8 Ratio (1.1-2.1) L 02/29/20 04:14 Lipase 92 Units/L (73-393) 02/26/20 12:15 Carcinoembryonic Ag 8.5 ng/mL (0.0-3.0) H 02/26/20 12:15 Specimen Type Clean catch urine 02/27/20 19:40 Urine Color Yellow (YELLOW) 02/27/20 19:40 Urine Appearance Clear (CLEAR) 02/27/20 19:40 Urine pH 6.0 (5.0 - 8.0) 02/27/20 19:40 Ur Specific [place] 1.015 (1.000-1.030) 02/27/20 19:40 Urine Protein 2+ (NEGATIVE) 02/27/20 19:40 Urine Glucose (UA) Negative (NEGATIVE) 02/27/20 19:40 Urine Ketones Negative (NEGATIVE) 02/27/20 19:40 Urine Occult Blood 1+ (NEGATIVE) 02/27/20 19:40 Urine Nitrite Positive (NEGATIVE) 02/27/20 19:40 Urine Bilirubin Negative (NEGATIVE) 02/27/20 19:40 Urine Urobilinogen Normal (NORMAL) 02/27/20 19:40 Ur Leukocyte Esterase 3+ (NEGATIVE) 02/27/20 19:40 Urine RBC 5-10 /HPF (0-3) A 02/27/20 19:40 Urine WBC 30-50 /HPF (0-5) A 02/27/20 19:40 Ur Squamous Epith Cells Negative /HPF (NEGATIVE) 02/27/20 19:40 Urine Bacteria Negative /HPF (NEGATIVE) 02/27/20 19:40 Ur Culture Indicated? Yes/culture set up 02/27/20 19:40 Stool Description 20g liquid brown 02/26/20 12:06 Stl Occult Blood (IFOB) Positive (NEGATIVE) A 02/26/20 12:06 Stool for White Cells Positive (NEGATIVE) A 02/26/20 12:06 Stl C. diff Tox B Gene Negative (NEGATIVE) 02/26/20 12:06 Stl C. diff [id number] Negative (NEGATIVE) 02/26/20 12:06 - Plan (1) Metastatic disease Status: Acute Qualifiers: Area of secondary neoplastic involvement: unspecified site Qualified Code(s): C79.9 - Secondary malignant neoplasm of unspecified site Plan: NS AT 125 ML/HR, FORTAZ 1 IV Q8H, LOVENOX 40MG SC DAILY, DEMEROL 25MG IV Q4H PRN, LOMOTIL 1 TAB QID, AND ZOFRAN 25MG IV Q4H PRN. (2) Intractable diarrhea Status: Acute Plan: STOOL CULTURE PENDING. FORTAZ 1G IV Q8H, CONTINUE TO MONITOR (3) Leukocytosis Status: Acute Qualifiers: Leukocytosis type: unspecified Qualified Code(s): D72.829 - Elevated white blood cell count, unspecified (4) History of lymphoma Status: Chronic
[2020-03-01] MEDS: DEMEROL INJ IVP PRN ×5 (00:45→21:08)
[2020-03-01] MEDS: NS 1000 ML 1,000 ML IV SCH ×5 (04:47→23:24)
[2020-03-01] MEDS: FORTAZ or TAZICEF VIAL INJ 1 G in NS 100 ML IV + SPIKE MINIBAG* 100 ML IV SCH ×3 (05:14→22:35)
[2020-03-01 06:18] LABS: BASOPHILS # (AUTO) 0.1 X10^3/uL (0.0-0.1); BASOPHILS % (AUTO) 0.5 % (0.2-1.0); EOSINOPHILS # (AUTO) 3.4 x10^3/uL (0.0-0.2); EOSINOPHILS % (AUTO) 27.5 % (0.9-2.9); HEMATOCRIT 40.3 % (42.0-54.0); LYMPHOCYTES # (AUTO) 1.7 X10^3/uL (1.3-2.9); LYMPHOCYTES % (AUTO) 13.7 % (21.0-51.0); MEAN CORPUSCULAR HEMOGLOBIN 29.2 pg (27.0-34.0); MEAN CORPUSCULAR HGB CONC 32.3 g/dL (33.0-35.0); MEAN CORPUSCULAR VOLUME 90.5 fL (80.0-100.0); MEAN PLATELET VOLUME 6.6 fL (7.4-11.0); MONOCYTES # (AUTO) 1.3 x10^3/uL (0.3-0.8); MONOCYTES % (AUTO) 10.4 % (0.0-13.0); NEUTROPHILS # (AUTO) 5.9 x10^3/uL (2.2-4.8); NEUTROPHILS % (AUTO) 47.9 % (42.0-75.0); PLATELET COUNT 262 X10^3/uL (150.0-450.0); RED BLOOD COUNT 4.45 X10^6/uL (4.7-6.0); RED CELL DISTRIBUTION WIDTH 16.9 % (11.6-16.5); WHITE BLOOD COUNT 12.4 X10^3/uL (3.6-10.0)
[2020-03-01 06:27] LABS: ALANINE AMINOTRANSFERASE 104 Units/L (12-78); ALBUMIN 2.4 g/dL (3.4-5.0); ALKALINE PHOSPHATASE 302 Units/L (46-116); ASPARTATE AMINO TRANSFERASE 48 Units/L (15-37); BLOOD UREA NITROGEN 6 mg/dL (7-18); CALCIUM 7.5 mg/dL (8.5-10.1); CARBON DIOXIDE 25.6 mmol/L (21-32); CHLORIDE 108 mmol/L (98-107); COR CA(FOR HYPOALB) 8.8 mg/dL (8.5-10.1); CREATININE 0.85 mg/dL (0.70-1.30); SODIUM 141 mmol/L (136-145); TOTAL PROTEIN 4.7 g/dL (6.4-8.2); eGFR NON BLACK RACES > 60 (>60)
[2020-03-01 07:02] LABS: PLATELET MORPHOLOGY COMMENT NORMAL (NORMAL)
[2020-03-01] MEDS: LOMOTIL PO SCH ×2 (08:42→20:40)
[2020-03-01] MEDS: LOVENOX INJ 40 MG SYR SC SCH (08:43)
--- NOTE | 2020-03-01 12:04 | PCM.PROG ---
Progress Note - Progress Note for Day of Date of Exam: 03/01/20 - Subjective Subjective: WAS ADMITTED FOR TREATMENT OF METASTATIC DISEASE, INTRACTABLE DIARRHEA, LEUKOCYTOSIS. HE HAS A HISTORY OF LYMPHOMA. TODAY, HE IS ALERT, LYING IN BED ON MORNING ROUNDS. HE CONTINUE WITH COMPLAINTS OF DIARRHEA TODAY. NURSING STAFF REPORTS THAT PATIENT CONTINUES WITH WEAKNESS. ON EXAMI NATION, HEART IS REGULAR IN RATE AND RHYTHM. BILATERAL LUNGS ARE NOTED WITH DIMINISHED LUNG SOUNDS THROUGHOUT. ABDOMEN IS ROUND, SOFT, AND NOTED WITH DIFFUSE TENDERNESS. INCREASED BOWEL SOUNDS NOTED. HIS VITALS THIS MORNING ARE: 98.3-74-20-96%-128/76. LABS WERE OBTAINED. ABNORMAL LAB VALUES INCLUDE THE FOLLOWING: WBC 12.4, RBC 4.45, HGB 13.0, HCT 40.3, CHLORIDE 108, BUN 6, CALCIUM 7.5, AST 48, ALT 104, ALK PHOS 302, TOTAL PROTEIN 4.7, ALBUMIN 2.4, GLOBULIN 2.3. CEA IS 8.5. STOOL STUDIES ARE POSITIVE FOR OCCULT BLOOD AND WHITE CELLS. URINE CULTURE REVEALS GROWTH OF E.COLI. HE IS CURRENTLY RECEIVING NS AT 125 ML/HR, FORTAZ 1G IV Q8H, LOVENOX 40MG SC DAILY, DEMEROL 25MG IV Q4H PRN, LOMOTIL 1 TAB PO BID, AND ZOFRAN 25MG IV Q4H PRN. WE WILL CONTINUE WITH CURRENT PLAN OF CARE TODAY. OTHERWISE, WE WILL FOLLOW UP WITH AM LABS AND CONTINUE TO MONITOR. - Past Medical Family Social History Past Med/Fam/Surg Hx: No changes since H&P Allergies: Allergies levofloxacin [From Levaquin] Allergy (Verified 02/26/20 10:52) - Review of Systems ROS: No change since H&P - Vital Signs and I&O's Vital Signs: Temperature 98.3 F Pulse Rate [Bilateral Radial] 74 Pulse Rate 70 Respiratory Rate 20 Blood Pressure [Right Arm] 128/76 Blood Pressure 118/77 O2 Sat by Pulse Oximetry 96 Intake and Output: Intake & Output 02/28/20 02/29/20 03/01/20 03/02/20 11:59 11:59 11:59 11:59 Intake Total 3216 / 3216 4882 / 4882 840 / 840 Output Total 525 / 525 900 / 900 1850 / 1850 Balance 2691 / 2691 3982 / 3982 -1010 / -1010 - Physical Exam Oriented: Person, Place Eyes: Normal Ear: Normal Nose: Normal Throat: Normal Cardiovascular: Normal : Normal Auscultation: Bowel Sounds: Increased Palpation: Normal Tenderness: Normal Skin: Normal Musculoskeletal: Normal Psychiatric: Normal Mood Description: Calm Affect: Normal Speech Pattern: Clear, Appropriate - Laboratory and Diagnostics Result Diagrams: 03/01/20 04:05 03/01/20 04:05 Labs: 02/27/20 19:40 Urine,Clean Catch Urine Culture - Final Escherichia Coli 02/26/20 12:06 Stool Stool Culture - Final 02/26/20 12:06 Stool - Final Laboratory WBC 12.4 X10^3/uL (3.6-10.0) H 03/01/20 04:05 RBC 4.45 X10^6/uL (4.7-6.0) L 03/01/20 04:05 Hgb 13.0 g/dL (13.5-18.0) L 03/01/20 04:05 Hct 40.3 % (42.0-54.0) L 03/01/20 04:05 MCV 90.5 fL (80.0-100.0) 03/01/20 04:05 MCH 29.2 pg (27.0-34.0) 03/01/20 04:05 MCHC 32.3 g/dL (33.0-35.0) L 03/01/20 04:05 RDW 16.9 % (11.6-16.5) H 03/01/20 04:05 Plt Count 262 X10^3/uL (150.0-450.0) 03/01/20 04:05 Plt Count Comment Adequate (ADEQUATE) 03/01/20 04:05 MPV 6.6 fL (7.4-11.0) L 03/01/20 04:05 Neut % (Auto) 47.9 % (42.0-75.0) 03/01/20 04:05 Lymph % (Auto) 13.7 % (21.0-51.0) L 03/01/20 04:05 [place] % (Auto) 10.4 % (0.0-13.0) 03/01/20 04:05 Eos % (Auto) 27.5 % (0.9-2.9) H 03/01/20 04:05 Baso % (Auto) 0.5 % (0.2-1.0) 03/01/20 04:05 Neut # (Auto) 5.9 x10^3/uL (2.2-4.8) H 03/01/20 04:05 Lymph # (Auto) 1.7 X10^3/uL (1.3-2.9) 03/01/20 04:05 [place] # (Auto) 1.3 x10^3/uL (0.3-0.8) H 03/01/20 04:05 Eos # (Auto) 3.4 x10^3/uL (0.0-0.2) H 03/01/20 04:05 Baso # (Auto) 0.1 X10^3/uL (0.0-0.1) 03/01/20 04:05 Absolute Nucleated RBC 0.0 /100WBC 03/01/20 04:05 Total Counted 100 03/01/20 04:05 Neutrophils % (Manual) 51 % (39-76) 03/01/20 04:05 Band Neutrophils % 1 % (0-10) 02/29/20 04:14 Lymphocytes % (Manual) 18 % (13-43) 03/01/20 04:05 Monocytes % (Manual) 7 % (4-9) 03/01/20 04:05 Eosinophils % (Manual) 24 % (0-6) H 03/01/20 04:05 Plt Morphology Comment Normal (NORMAL) 03/01/20 04:05 RBC Morphology Normal (NORMAL) 03/01/20 04:05 Sodium 141 mmol/L (136-145) 03/01/20 04:05 Corrected Sodium TNP 03/01/20 04:05 Potassium 3.6 mmol/L (3.5-5.1) 03/01/20 04:05 Chloride 108 mmol/L (98-107) H 03/01/20 04:05 Carbon Dioxide 25.6 mmol/L (21-32) 03/01/20 04:05 BUN 6 mg/dL (7-18) L 03/01/20 04:05 Creatinine 0.85 mg/dL (0.70-1.30) 03/01/20 04:05 Est GFR (MDRD) Af Amer > 60 (>60) 03/01/20 04:05 Est GFR (MDRD) Non-Af > 60 (>60) 03/01/20 04:05 Glucose 85 mg/dL (65-99) 03/01/20 04:05 Calcium 7.5 mg/dL (8.5-10.1) L 03/01/20 04:05 Corrected Calcium 8.8 mg/dL (8.5-10.1) 03/01/20 04:05 Magnesium 1.8 mg/dL (1.7-2.9) 03/01/20 04:05 Total Bilirubin 0.50 mg/dL (0.2-1.0) 03/01/20 04:05 AST 48 Units/L (15-37) H 03/01/20 04:05 ALT 104 Units/L (12-78) H 03/01/20 04:05 Alkaline Phosphatase 302 Units/L (46-116) H 03/01/20 04:05 Total Protein 4.7 g/dL (6.4-8.2) L 03/01/20 04:05 Albumin 2.4 g/dL (3.4-5.0) L 03/01/20 04:05 Globulin 2.3 g/dL (2.5-4.5) L 03/01/20 04:05 Albumin/Globulin Ratio 1.0 Ratio (1.1-2.1) L 03/01/20 04:05 Lipase 92 Units/L (73-393) 02/26/20 12:15 Carcinoembryonic Ag 8.5 ng/mL (0.0-3.0) H 02/26/20 12:15 Specimen Type Clean catch urine 02/27/20 19:40 Urine Color Yellow (YELLOW) 02/27/20 19:40 Urine Appearance Clear (CLEAR) 02/27/20 19:40 Urine pH 6.0 (5.0 - 8.0) 02/27/20 19:40 Ur Specific [place] 1.015 (1.000-1.030) 02/27/20 19:40 Urine Protein 2+ (NEGATIVE) 02/27/20 19:40 Urine Glucose (UA) Negative (NEGATIVE) 02/27/20 19:40 Urine Ketones Negative (NEGATIVE) 02/27/20 19:40 Urine Occult Blood 1+ (NEGATIVE) 02/27/20 19:40 Urine Nitrite Positive (NEGATIVE) 02/27/20 19:40 Urine Bilirubin Negative (NEGATIVE) 02/27/20 19:40 Urine Urobilinogen Normal (NORMAL) 02/27/20 19:40 Ur Leukocyte Esterase 3+ (NEGATIVE) 02/27/20 19:40 Urine RBC 5-10 /HPF (0-3) A 02/27/20 19:40 Urine WBC 30-50 /HPF (0-5) A 02/27/20 19:40 Ur Squamous Epith Cells Negative /HPF (NEGATIVE) 02/27/20 19:40 Urine Bacteria Negative /HPF (NEGATIVE) 02/27/20 19:40 Ur Culture Indicated? Yes/culture set up 02/27/20 19:40 Stool Description 20g liquid brown 02/26/20 12:06 Stl Occult Blood (IFOB) Positive (NEGATIVE) A 02/26/20 12:06 Stool for White Cells Positive (NEGATIVE) A 02/26/20 12:06 Stl C. diff Tox B Gene Negative (NEGATIVE) 02/26/20 12:06 Stl C. diff [id number] Negative (NEGATIVE) 02/26/20 12:06 - Plan (1) Metastatic disease Status: Acute Qualifiers: Area of secondary neoplastic involvement: unspecified site Qualified Code(s): C79.9 - Secondary malignant neoplasm of unspecified site Plan: NS AT 125 ML/HR, FORTAZ 1 IV Q8H, LOVENOX 40MG SC DAILY, DEMEROL 25MG IV Q4H PRN, LOMOTIL 1 TAB QID, AND ZOFRAN 25MG IV Q4H PRN. (2) Intractable diarrhea Status: Acute Plan: STOOL CULTURE PENDING. FORTAZ 1G IV Q8H, CONTINUE TO MONITOR (3) Leukocytosis Status: Acute Qualifiers: Leukocytosis type: unspecified Qualified Code(s): D72.829 - Elevated white blood cell count, unspecified (4) E. coli UTI (urinary tract infection) Status: Acute (5) History of lymphoma Status: Chronic
[2020-03-01] MEDS ORDERED: RESTORIL CAP 15 MG PO ONE (20:27)
[2020-03-01] MEDS: RESTORIL CAP 15 MG PO PRN (20:40)
[2020-03-02] MEDS: DEMEROL INJ IVP PRN ×3 (04:34→19:51)
[2020-03-02 05:19] LABS: BASOPHILS # (AUTO) 0.1 X10^3/uL (0.0-0.1); BASOPHILS % (AUTO) 0.4 % (0.2-1.0); EOSINOPHILS % (AUTO) 27.1 % (0.9-2.9); HEMATOCRIT 40.2 % (42.0-54.0); HEMOGLOBIN 13.2 g/dL (13.5-18.0); LYMPHOCYTES # (AUTO) 1.7 X10^3/uL (1.3-2.9); LYMPHOCYTES % (AUTO) 11.7 % (21.0-51.0); MEAN CORPUSCULAR HEMOGLOBIN 29.5 pg (27.0-34.0); MEAN CORPUSCULAR HGB CONC 32.8 g/dL (33.0-35.0); MEAN CORPUSCULAR VOLUME 89.8 fL (80.0-100.0); MEAN PLATELET VOLUME 6.4 fL (7.4-11.0); MONOCYTES # (AUTO) 1.5 x10^3/uL (0.3-0.8); MONOCYTES % (AUTO) 9.8 % (0.0-13.0); NEUTROPHILS # (AUTO) 7.6 x10^3/uL (2.2-4.8); PLATELET COUNT 303 X10^3/uL (150.0-450.0); RED BLOOD COUNT 4.48 X10^6/uL (4.7-6.0); RED CELL DISTRIBUTION WIDTH 16.3 % (11.6-16.5); WHITE BLOOD COUNT 14.9 X10^3/uL (3.6-10.0)
[2020-03-02 05:32] LABS: ALANINE AMINOTRANSFERASE 95 Units/L (12-78); ALBUMIN 2.4 g/dL (3.4-5.0); ALKALINE PHOSPHATASE 322 Units/L (46-116); ASPARTATE AMINO TRANSFERASE 49 Units/L (15-37); BLOOD UREA NITROGEN 6 mg/dL (7-18); CALCIUM 7.7 mg/dL (8.5-10.1); CARBON DIOXIDE 25.7 mmol/L (21-32); CHLORIDE 106 mmol/L (98-107); CREATININE 0.83 mg/dL (0.70-1.30); MAGNESIUM 1.8 mg/dL (1.7-2.9); SODIUM 140 mmol/L (136-145); TOTAL PROTEIN 4.6 g/dL (6.4-8.2); eGFR NON BLACK RACES > 60 (>60)
[2020-03-02] MEDS: NS 1000 ML 1,000 ML IV SCH ×3 (06:00→18:37)
[2020-03-02] MEDS: FORTAZ or TAZICEF VIAL INJ 1 G in NS 100 ML IV + SPIKE MINIBAG* 100 ML IV SCH ×3 (06:02→21:03)
[2020-03-02 06:17] LABS: PLATELET MORPHOLOGY COMMENT NORMAL (NORMAL)
[2020-03-02] MEDS: LOMOTIL PO SCH ×2 (09:08→21:02)
[2020-03-02] MEDS: LOVENOX INJ 40 MG SYR SC SCH (09:08)
[2020-03-02] MEDS: RESTORIL CAP 15 MG PO PRN (21:04)
[2020-03-02] MEDS: MAGNESIUM SULFATE 1 GRAM/100 mL PREMIX 1 GM/100 ML BAG IV PRN ×2 (22:15→23:29)
[2020-03-03] MEDS: DEMEROL INJ IVP PRN ×5 (00:54→20:53)
[2020-03-03] MEDS: NS 1000 ML 1,000 ML IV SCH ×4 (02:53→21:45)
[2020-03-03 05:27] LABS: BASOPHILS # (AUTO) 0.1 X10^3/uL (0.0-0.1); BASOPHILS % (AUTO) 0.8 % (0.2-1.0); EOSINOPHILS # (AUTO) 4.2 x10^3/uL (0.0-0.2); HEMATOCRIT 42.5 % (42.0-54.0); HEMOGLOBIN 13.8 g/dL (13.5-18.0); LYMPHOCYTES # (AUTO) 1.9 X10^3/uL (1.3-2.9); LYMPHOCYTES % (AUTO) 11.4 % (21.0-51.0); MEAN CORPUSCULAR HEMOGLOBIN 29.3 pg (27.0-34.0); MEAN CORPUSCULAR HGB CONC 32.5 g/dL (33.0-35.0); MEAN CORPUSCULAR VOLUME 90.3 fL (80.0-100.0); MEAN PLATELET VOLUME 6.3 fL (7.4-11.0); MONOCYTES # (AUTO) 1.5 x10^3/uL (0.3-0.8); MONOCYTES % (AUTO) 9.1 % (0.0-13.0); NEUTROPHILS % (AUTO) 53.7 % (42.0-75.0); PLATELET COUNT 310 X10^3/uL (150.0-450.0); RED BLOOD COUNT 4.71 X10^6/uL (4.7-6.0); RED CELL DISTRIBUTION WIDTH 17.3 % (11.6-16.5); WHITE BLOOD COUNT 16.7 X10^3/uL (3.6-10.0)
[2020-03-03] MEDS: FORTAZ or TAZICEF VIAL INJ 1 G in NS 100 ML IV + SPIKE MINIBAG* 100 ML IV SCH ×3 (05:27→21:16)
[2020-03-03 05:46] LABS: ALANINE AMINOTRANSFERASE 94 Units/L (12-78); ALBUMIN 2.5 g/dL (3.4-5.0); ALKALINE PHOSPHATASE 342 Units/L (46-116); ASPARTATE AMINO TRANSFERASE 55 Units/L (15-37); BLOOD UREA NITROGEN 6 mg/dL (7-18); CARBON DIOXIDE 27.4 mmol/L (21-32); CHLORIDE 105 mmol/L (98-107); COR CA(FOR HYPOALB) 9.2 mg/dL (8.5-10.1); CREATININE 0.79 mg/dL (0.70-1.30); MAGNESIUM 2.2 mg/dL (1.7-2.9); SODIUM 139 mmol/L (136-145); TOTAL PROTEIN 5.1 g/dL (6.4-8.2); eGFR NON BLACK RACES > 60 (>60)
[2020-03-03 06:05] LABS: PLATELET MORPHOLOGY COMMENT NORMAL (NORMAL)
[2020-03-03] MEDS: LOMOTIL PO SCH ×2 (08:28→20:55)
[2020-03-03] MEDS: LOVENOX INJ 40 MG SYR SC SCH (08:28)
[2020-03-03] MEDS: INVANZ INJ 1 GM VIAL 1 GM in NS 100 ML IV + SPIKE MINIBAG* 100 ML IV SCH (17:00)
[2020-03-03] MEDS: RESTORIL CAP 15 MG PO PRN (20:53)
[2020-03-04] MEDS: DEMEROL INJ IVP PRN ×4 (00:17→23:59)
[2020-03-04] MEDS: NS 1000 ML 1,000 ML IV SCH ×5 (03:32→17:31)
[2020-03-04 05:06] LABS: BASOPHILS # (AUTO) 0.1 X10^3/uL (0.0-0.1); BASOPHILS % (AUTO) 0.5 % (0.2-1.0); EOSINOPHILS # (AUTO) 3.8 x10^3/uL (0.0-0.2); EOSINOPHILS % (AUTO) 23.3 % (0.9-2.9); HEMATOCRIT 41.5 % (42.0-54.0); HEMOGLOBIN 13.2 g/dL (13.5-18.0); LYMPHOCYTES # (AUTO) 1.6 X10^3/uL (1.3-2.9); LYMPHOCYTES % (AUTO) 9.8 % (21.0-51.0); MEAN CORPUSCULAR HEMOGLOBIN 28.7 pg (27.0-34.0); MEAN CORPUSCULAR HGB CONC 31.7 g/dL (33.0-35.0); MEAN CORPUSCULAR VOLUME 90.4 fL (80.0-100.0); MONOCYTES # (AUTO) 1.5 x10^3/uL (0.3-0.8); NEUTROPHILS # (AUTO) 9.4 x10^3/uL (2.2-4.8); NEUTROPHILS % (AUTO) 57.4 % (42.0-75.0); PLATELET COUNT 291 X10^3/uL (150.0-450.0); RED BLOOD COUNT 4.59 X10^6/uL (4.7-6.0); RED CELL DISTRIBUTION WIDTH 16.8 % (11.6-16.5); WHITE BLOOD COUNT 16.4 X10^3/uL (3.6-10.0)
[2020-03-04 05:23] LABS: ALANINE AMINOTRANSFERASE 89 Units/L (12-78); ALBUMIN 2.4 g/dL (3.4-5.0); ALKALINE PHOSPHATASE 331 Units/L (46-116); ASPARTATE AMINO TRANSFERASE 58 Units/L (15-37); BLOOD UREA NITROGEN 7 mg/dL (7-18); CALCIUM 7.9 mg/dL (8.5-10.1); CARBON DIOXIDE 28.5 mmol/L (21-32); CHLORIDE 103 mmol/L (98-107); COR CA(FOR HYPOALB) 9.2 mg/dL (8.5-10.1); CREATININE 0.92 mg/dL (0.70-1.30); SODIUM 138 mmol/L (136-145); eGFR NON BLACK RACES > 60 (>60)
[2020-03-04] MEDS: FORTAZ or TAZICEF VIAL INJ 1 G in NS 100 ML IV + SPIKE MINIBAG* 100 ML IV SCH (05:37)
[2020-03-04 05:41] LABS: PLATELET MORPHOLOGY COMMENT NORMAL (NORMAL)
[2020-03-04] MEDS: BUTT CREAM (COMPOUND) TOP PRN (06:09)
[2020-03-04] MEDS: INVANZ INJ 1 GM VIAL 1 GM in NS 100 ML IV + SPIKE MINIBAG* 100 ML IV SCH (08:17)
[2020-03-04] MEDS: LOMOTIL PO SCH ×2 (08:18→22:33)
[2020-03-04] MEDS: LOVENOX INJ 40 MG SYR SC SCH (08:18)
[2020-03-04] MEDS: TORADOL 30 MG VIAL IVP PRN ×2 (10:58→22:00)
[2020-03-04] MEDS: NULYTELY or GO-LYTELY PO SCH (11:45)
--- NOTE | 2020-03-04 14:25 | PCM.PROG ---
Progress Note - Progress Note for Day of Date of Exam: 03/02/20 - Subjective Subjective: WAS ADMITTED FOR TREATMENT OF METASTATIC DISEASE, INTRACTABLE DIARRHEA, LEUKOCYTOSIS. HE HAS A HISTORY OF LYMPHOMA. TODAY, HE IS ALERT, LYING IN BED ON MORNING ROUNDS. PATIENT IS COMPLAINING OF ABDOMINAL PAIN THIS MORNING. PATIENT STATES, IT HURTS ALL OVER. NURSING STAFF REPORTS THAT PATIENT CONTINUES WITH WEAKNESS. ON EXAMINATION, HEART IS REGULAR IN RATE AND RHYTHM. BILATERAL LUNGS ARE NOTED WITH DIMINISHED LUNG SOUNDS THROUGHOUT. ABDOMEN IS ROUND, SOFT, AND NOTED WITH DIFFUSE TENDERNESS. INCREASED BOWEL SOUNDS NOTED. HIS VITALS THIS MORNING ARE: 98.6-80-20-92%-126/73. LABS WERE OBTAINED. ABNORMAL LAB VALUES INCLUDE THE FOLLOWING: WBC 14.9, RBC 4.48, HGB 13.2, HCT 40.2, BUN 6, CALCIUM 7.7, AST 49, ALT 95, ALK PHOS 322, TOTAL PROTEIN 4.6, ALBUMIN 2.4, GLOBULIN 2.2. STOOL STUDIES ARE POSITIVE FOR OCCULT BLOOD AND WHITE CELLS. URINE CULTURE REVEALS GROWTH OF E.COLI. HE IS CURRENTLY RECEIVING NS AT 125 ML/HR, FORTAZ 1G IV Q8H, LOVENOX 40MG SC DAILY, DEMEROL 25MG IV Q4H PRN, LOMOTIL 1 TAB PO BID, RESTORIL 15MG PO HS PRN, THE POTASSIUM AND MAGNESUM PROTOCOLS, AND ZOFRAN 25MG IV Q4H PRN. WE WILL CONTINUE WITH CURRENT PLAN OF CARE TODAY. OTHERWISE, WE WILL FOLLOW UP WITH AM LABS AND CONTINUE TO MONITOR. - Past Medical Family Social History Past Med/Fam/Surg Hx: No changes since H&P Allergies: Allergies levofloxacin [From Levaquin] Allergy (Verified 02/26/20 10:52) - Review of Systems ROS: No change since H&P - Vital Signs and I&O's Vital Signs: Temperature 97.5 F Pulse Rate [Bilateral Radial] 76 Pulse Rate 80 Respiratory Rate 20 Blood Pressure [Left Arm] 131/87 Blood Pressure [Right Arm] 133/91 Blood Pressure 118/77 O2 Sat by Pulse Oximetry 97 Intake and Output: Intake & Output 03/02/20 03/03/20 03/04/20 03/05/20 12:59 11:59 11:59 11:59 Intake Total 2410 / 2410 Output Total 1175 / 1175 Balance 1235 / 1235 - Physical Exam Oriented: Person, Place Eyes: Normal Ear: Normal Nose: Normal Throat: Normal Respiratory: Generalized, Diminished Cardiovascular: Normal : Normal Auscultation: Bowel Sounds: Increased Tenderness: Diffuse Skin: Normal Musculoskeletal: Normal Psychiatric: Normal Mood Description: Calm Affect: Normal Speech Pattern: Clear, Appropriate - Laboratory and Diagnostics Result Diagrams: 03/04/20 04:30 03/04/20 04:30 Labs: 02/27/20 19:40 Urine,Clean Catch Urine Culture - Final Escherichia Coli 02/26/20 12:06 Stool Stool Culture - Final 02/26/20 12:06 Stool - Final Laboratory WBC 16.4 X10^3/uL (3.6-10.0) H 03/04/20 04:30 RBC 4.59 X10^6/uL (4.7-6.0) L 03/04/20 04:30 Hgb 13.2 g/dL (13.5-18.0) L 03/04/20 04:30 Hct 41.5 % (42.0-54.0) L 03/04/20 04:30 MCV 90.4 fL (80.0-100.0) 03/04/20 04:30 MCH 28.7 pg (27.0-34.0) 03/04/20 04:30 MCHC 31.7 g/dL (33.0-35.0) L 03/04/20 04:30 RDW 16.8 % (11.6-16.5) H 03/04/20 04:30 Plt Count 291 X10^3/uL (150.0-450.0) 03/04/20 04:30 Plt Count Comment Adequate (ADEQUATE) 03/04/20 04:30 MPV 6.0 fL (7.4-11.0) L 03/04/20 04:30 Neut % (Auto) 57.4 % (42.0-75.0) 03/04/20 04:30 Lymph % (Auto) 9.8 % (21.0-51.0) L 03/04/20 04:30 [place] % (Auto) 9.0 % (0.0-13.0) 03/04/20 04:30 Eos % (Auto) 23.3 % (0.9-2.9) H 03/04/20 04:30 Baso % (Auto) 0.5 % (0.2-1.0) 03/04/20 04:30 Neut # (Auto) 9.4 x10^3/uL (2.2-4.8) H 03/04/20 04:30 Lymph # (Auto) 1.6 X10^3/uL (1.3-2.9) 03/04/20 04:30 [place] # (Auto) 1.5 x10^3/uL (0.3-0.8) H 03/04/20 04:30 Eos # (Auto) 3.8 x10^3/uL (0.0-0.2) H 03/04/20 04:30 Baso # (Auto) 0.1 X10^3/uL (0.0-0.1) 03/04/20 04:30 Absolute Nucleated RBC 0.1 /100WBC 03/04/20 04:30 Total Counted 100 03/04/20 04:30 Neutrophils % (Manual) 55 % (39-76) 03/04/20 04:30 Band Neutrophils % 1 % (0-10) 02/29/20 04:14 Lymphocytes % (Manual) 16 % (13-43) 03/04/20 04:30 Monocytes % (Manual) 2 % (4-9) L 03/04/20 04:30 Eosinophils % (Manual) 27 % (0-6) H 03/04/20 04:30 Plt Morphology Comment Normal (NORMAL) 03/04/20 04:30 RBC Morphology Normal (NORMAL) 03/04/20 04:30 Sodium 138 mmol/L (136-145) 03/04/20 04:30 Corrected Sodium TNP 03/04/20 04:30 Potassium 4.0 mmol/L (3.5-5.1) 03/04/20 04:30 Chloride 103 mmol/L (98-107) 03/04/20 04:30 Carbon Dioxide 28.5 mmol/L (21-32) 03/04/20 04:30 BUN 7 mg/dL (7-18) 03/04/20 04:30 Creatinine 0.92 mg/dL (0.70-1.30) 03/04/20 04:30 Est GFR (MDRD) Af Amer > 60 (>60) 03/04/20 04:30 Est GFR (MDRD) Non-Af > 60 (>60) 03/04/20 04:30 Glucose 90 mg/dL (65-99) 03/04/20 04:30 Calcium 7.9 mg/dL (8.5-10.1) L 03/04/20 04:30 Corrected Calcium 9.2 mg/dL (8.5-10.1) 03/04/20 04:30 Magnesium 2.2 mg/dL (1.7-2.9) 03/03/20 04:10 Total Bilirubin 0.50 mg/dL (0.2-1.0) 03/04/20 04:30 AST 58 Units/L (15-37) H 03/04/20 04:30 ALT 89 Units/L (12-78) H 03/04/20 04:30 Alkaline Phosphatase 331 Units/L (46-116) H 03/04/20 04:30 Total Protein 5.0 g/dL (6.4-8.2) L 03/04/20 04:30 Albumin 2.4 g/dL (3.4-5.0) L 03/04/20 04:30 Globulin 2.6 g/dL (2.5-4.5) 03/04/20 04:30 Albumin/Globulin Ratio 0.9 Ratio (1.1-2.1) L 03/04/20 04:30 Lipase 92 Units/L (73-393) 02/26/20 12:15 Carcinoembryonic Ag 8.5 ng/mL (0.0-3.0) H 02/26/20 12:15 Specimen Type Clean catch urine 02/27/20 19:40 Urine Color Yellow (YELLOW) 02/27/20 19:40 Urine Appearance Clear (CLEAR) 02/27/20 19:40 Urine pH 6.0 (5.0 - 8.0) 02/27/20 19:40 Ur Specific [place] 1.015 (1.000-1.030) 02/27/20 19:40 Urine Protein 2+ (NEGATIVE) 02/27/20 19:40 Urine Glucose (UA) Negative (NEGATIVE) 02/27/20 19:40 Urine Ketones Negative (NEGATIVE) 02/27/20 19:40 Urine Occult Blood 1+ (NEGATIVE) 02/27/20 19:40 Urine Nitrite Positive (NEGATIVE) 02/27/20 19:40 Urine Bilirubin Negative (NEGATIVE) 02/27/20 19:40 Urine Urobilinogen Normal (NORMAL) 02/27/20 19:40 Ur Leukocyte Esterase 3+ (NEGATIVE) 02/27/20 19:40 Urine RBC 5-10 /HPF (0-3) A 02/27/20 19:40 Urine WBC 30-50 /HPF (0-5) A 02/27/20 19:40 Ur Squamous Epith Cells Negative /HPF (NEGATIVE) 02/27/20 19:40 Urine Bacteria Negative /HPF (NEGATIVE) 02/27/20 19:40 Ur Culture Indicated? Yes/culture set up 02/27/20 19:40 Stool Description 20g liquid brown 02/26/20 12:06 Stl Occult Blood (IFOB) Positive (NEGATIVE) A 02/26/20 12:06 Stool for White Cells Positive (NEGATIVE) A 02/26/20 12:06 Stl C. diff Tox B Gene Negative (NEGATIVE) 02/26/20 12:06 Stl C. diff [id number] Negative (NEGATIVE) 02/26/20 12:06 - Plan (1) Metastatic disease Status: Acute Qualifiers: Area of secondary neoplastic involvement: unspecified site Qualified Code(s): C79.9 - Secondary malignant neoplasm of unspecified site Plan: NS AT 125 ML/HR, FORTAZ 1 IV Q8H, LOVENOX 40MG SC DAILY, DEMEROL 25MG IV Q4H PRN, LOMOTIL 1 TAB QID, AND ZOFRAN 25MG IV Q4H PRN. (2) Intractable diarrhea Status: Acute Plan: STOOL CULTURE PENDING. FORTAZ 1G IV Q8H, CONTINUE TO MONITOR (3) Leukocytosis Status: Acute Qualifiers: Leukocytosis type: unspecified Qualified Code(s): D72.829 - Elevated white blood cell count, unspecified (4) E. coli UTI (urinary tract infection) Status: Acute (5) Hypokalemia Status: Acute Plan: POTASSIUM PROTOCOL (6) History of lymphoma Status: Chronic
--- NOTE | 2020-03-04 14:43 | PCM.PROG ---
Progress Note - Progress Note for Day of Date of Exam: 03/03/20 - Subjective Subjective: WAS ADMITTED FOR TREATMENT OF METASTATIC DISEASE, INTRACTABLE DIARRHEA, LEUKOCYTOSIS. HE HAS A HISTORY OF LYMPHOMA. TODAY, HE IS ALERT, LYING IN BED ON MORNING ROUNDS. PATIENT CONTINUES WITH COMPLAINTS OF ABDOMINAL PAIN THIS MORNING. NURSING STAFF REPORTS THAT PATIENT CONTINUES WITH WEAKNESS. ON EXAMINATION, HEART IS REGULAR IN RATE AND RHYTHM. BILATERAL LUNGS ARE NOTED WITH DIMINISHED LUNG SOUNDS THROUGHOUT. ABDOMEN IS ROUND, SOFT, AND NOTED WITH DIFFUSE TENDERNESS. INCREASED BOWEL SOUNDS NOTED. HIS VITALS THIS MORNING ARE: 98.0-76-20-97%-120/80. LABS WERE OBTAINED. ABNORMAL LAB VALUES INCLUDE THE FOLLOWING: WBC 16.7, BUN 6, CALCIUM 8.0, AST 55, ALT 94, ALK PHOS 342, TOTAL PROTEIN 5.1, ALBUMIN 2.5. STOOL STUDIES ARE POSITIVE FOR OCCULT BLOOD AND WHITE CELLS. URINE CULTURE REVEALS GROWTH OF E.COLI. HE IS CURRENTLY RECEIVING NS AT 125 ML/HR, FORTAZ 1G IV Q8H, LOVENOX 40MG SC DAILY, DEMEROL 25MG IV Q4H PRN, LOMOTIL 1 TAB PO BID, RESTORIL 15MG PO HS PRN, THE POTASSIUM AND MAGNESUM PROTOCOLS, AND ZOFRAN 25MG IV Q4H PRN. WE WILL CONTINUE WITH CURRENT PLAN OF CARE TODAY AND ADD INVANZ 1G IV DAILY. WE HAVE SPOKEN WITH FAMILY AND THEY WISH TO PROCEED WITH A COLONOSCOPY. WE WILL CONSULT WITH . OTHERWISE, WE WILL FOLLOW UP WITH AM LABS AND CONTINUE TO MONITOR. - Past Medical Family Social History Past Med/Fam/Surg Hx: No changes since H&P Allergies: Allergies levofloxacin [From Levaquin] Allergy (Verified 02/26/20 10:52) - Review of Systems ROS: No change since H&P - Vital Signs and I&O's Vital Signs: Temperature 97.7 F Pulse Rate [Bilateral Radial] 80 Pulse Rate 80 Respiratory Rate 20 Blood Pressure [Left Arm] 144/90 Blood Pressure [Right Arm] 133/91 Blood Pressure 118/77 O2 Sat by Pulse Oximetry 95 Intake and Output: Intake & Output 03/02/20 03/03/20 03/04/20 03/05/20 12:59 11:59 11:59 11:59 Intake Total 2410 / 2410 Output Total 1175 / 1175 Balance 1235 / 1235 - Physical Exam Oriented: Person, Place Eyes: Normal Ear: Normal Nose: Normal Throat: Normal Respiratory: Generalized, Diminished Cardiovascular: Normal : Normal Auscultation: Bowel Sounds: Increased Tenderness: Diffuse Skin: Normal Musculoskeletal: Normal Psychiatric: Normal Mood Description: Calm Affect: Normal Speech Pattern: Clear, Appropriate - Laboratory and Diagnostics Result Diagrams: 03/04/20 04:30 03/04/20 04:30 Labs: 02/27/20 19:40 Urine,Clean Catch Urine Culture - Final Escherichia Coli 02/26/20 12:06 Stool Stool Culture - Final 02/26/20 12:06 Stool - Final Laboratory WBC 16.4 X10^3/uL (3.6-10.0) H 03/04/20 04:30 RBC 4.59 X10^6/uL (4.7-6.0) L 03/04/20 04:30 Hgb 13.2 g/dL (13.5-18.0) L 03/04/20 04:30 Hct 41.5 % (42.0-54.0) L 03/04/20 04:30 MCV 90.4 fL (80.0-100.0) 03/04/20 04:30 MCH 28.7 pg (27.0-34.0) 03/04/20 04:30 MCHC 31.7 g/dL (33.0-35.0) L 03/04/20 04:30 RDW 16.8 % (11.6-16.5) H 03/04/20 04:30 Plt Count 291 X10^3/uL (150.0-450.0) 03/04/20 04:30 Plt Count Comment Adequate (ADEQUATE) 03/04/20 04:30 MPV 6.0 fL (7.4-11.0) L 03/04/20 04:30 Neut % (Auto) 57.4 % (42.0-75.0) 03/04/20 04:30 Lymph % (Auto) 9.8 % (21.0-51.0) L 03/04/20 04:30 [place] % (Auto) 9.0 % (0.0-13.0) 03/04/20 04:30 Eos % (Auto) 23.3 % (0.9-2.9) H 03/04/20 04:30 Baso % (Auto) 0.5 % (0.2-1.0) 03/04/20 04:30 Neut # (Auto) 9.4 x10^3/uL (2.2-4.8) H 03/04/20 04:30 Lymph # (Auto) 1.6 X10^3/uL (1.3-2.9) 03/04/20 04:30 [place] # (Auto) 1.5 x10^3/uL (0.3-0.8) H 03/04/20 04:30 Eos # (Auto) 3.8 x10^3/uL (0.0-0.2) H 03/04/20 04:30 Baso # (Auto) 0.1 X10^3/uL (0.0-0.1) 03/04/20 04:30 Absolute Nucleated RBC 0.1 /100WBC 03/04/20 04:30 Total Counted 100 03/04/20 04:30 Neutrophils % (Manual) 55 % (39-76) 03/04/20 04:30 Band Neutrophils % 1 % (0-10) 02/29/20 04:14 Lymphocytes % (Manual) 16 % (13-43) 03/04/20 04:30 Monocytes % (Manual) 2 % (4-9) L 03/04/20 04:30 Eosinophils % (Manual) 27 % (0-6) H 03/04/20 04:30 Plt Morphology Comment Normal (NORMAL) 03/04/20 04:30 RBC Morphology Normal (NORMAL) 03/04/20 04:30 Sodium 138 mmol/L (136-145) 03/04/20 04:30 Corrected Sodium TNP 03/04/20 04:30 Potassium 4.0 mmol/L (3.5-5.1) 03/04/20 04:30 Chloride 103 mmol/L (98-107) 03/04/20 04:30 Carbon Dioxide 28.5 mmol/L (21-32) 03/04/20 04:30 BUN 7 mg/dL (7-18) 03/04/20 04:30 Creatinine 0.92 mg/dL (0.70-1.30) 03/04/20 04:30 Est GFR (MDRD) Af Amer > 60 (>60) 03/04/20 04:30 Est GFR (MDRD) Non-Af > 60 (>60) 03/04/20 04:30 Glucose 90 mg/dL (65-99) 03/04/20 04:30 Calcium 7.9 mg/dL (8.5-10.1) L 03/04/20 04:30 Corrected Calcium 9.2 mg/dL (8.5-10.1) 03/04/20 04:30 Magnesium 2.2 mg/dL (1.7-2.9) 03/03/20 04:10 Total Bilirubin 0.50 mg/dL (0.2-1.0) 03/04/20 04:30 AST 58 Units/L (15-37) H 03/04/20 04:30 ALT 89 Units/L (12-78) H 03/04/20 04:30 Alkaline Phosphatase 331 Units/L (46-116) H 03/04/20 04:30 Total Protein 5.0 g/dL (6.4-8.2) L 03/04/20 04:30 Albumin 2.4 g/dL (3.4-5.0) L 03/04/20 04:30 Globulin 2.6 g/dL (2.5-4.5) 03/04/20 04:30 Albumin/Globulin Ratio 0.9 Ratio (1.1-2.1) L 03/04/20 04:30 Lipase 92 Units/L (73-393) 02/26/20 12:15 Carcinoembryonic Ag 8.5 ng/mL (0.0-3.0) H 02/26/20 12:15 Specimen Type Clean catch urine 02/27/20 19:40 Urine Color Yellow (YELLOW) 02/27/20 19:40 Urine Appearance Clear (CLEAR) 02/27/20 19:40 Urine pH 6.0 (5.0 - 8.0) 02/27/20 19:40 Ur Specific [place] 1.015 (1.000-1.030) 02/27/20 19:40 Urine Protein 2+ (NEGATIVE) 02/27/20 19:40 Urine Glucose (UA) Negative (NEGATIVE) 02/27/20 19:40 Urine Ketones Negative (NEGATIVE) 02/27/20 19:40 Urine Occult Blood 1+ (NEGATIVE) 02/27/20 19:40 Urine Nitrite Positive (NEGATIVE) 02/27/20 19:40 Urine Bilirubin Negative (NEGATIVE) 02/27/20 19:40 Urine Urobilinogen Normal (NORMAL) 02/27/20 19:40 Ur Leukocyte Esterase 3+ (NEGATIVE) 02/27/20 19:40 Urine RBC 5-10 /HPF (0-3) A 02/27/20 19:40 Urine WBC 30-50 /HPF (0-5) A 02/27/20 19:40 Ur Squamous Epith Cells Negative /HPF (NEGATIVE) 02/27/20 19:40 Urine Bacteria Negative /HPF (NEGATIVE) 02/27/20 19:40 Ur Culture Indicated? Yes/culture set up 02/27/20 19:40 Stool Description 20g liquid brown 02/26/20 12:06 Stl Occult Blood (IFOB) Positive (NEGATIVE) A 02/26/20 12:06 Stool for White Cells Positive (NEGATIVE) A 02/26/20 12:06 Stl C. diff Tox B Gene Negative (NEGATIVE) 02/26/20 12:06 Stl C. diff [id number] Negative (NEGATIVE) 02/26/20 12:06 - Plan (1) Metastatic disease Status: Acute Qualifiers: Area of secondary neoplastic involvement: unspecified site Qualified Code(s): C79.9 - Secondary malignant neoplasm of unspecified site Plan: NS AT 125 ML/HR, FORTAZ 1 IV Q8H, LOVENOX 40MG SC DAILY, DEMEROL 25MG IV Q4H PRN, LOMOTIL 1 TAB QID, AND ZOFRAN 25MG IV Q4H PRN. CONSULT GI FOR COLONOSCOPY (2) Intractable diarrhea Status: Acute Plan: STOOL CULTURE PENDING. FORTAZ 1G IV Q8H, CONTINUE TO MONITOR (3) Leukocytosis Status: Acute Qualifiers: Leukocytosis type: unspecified Qualified Code(s): D72.829 - Elevated white blood cell count, unspecified Plan: FORTAZ 1G IV Q8H, INVANZ 1G IV DAILY, CONTINUE TO MONITOR (4) E. coli UTI (urinary tract infection) Status: Acute (5) Hypokalemia Status: Acute Plan: POTASSIUM PROTOCOL (6) History of lymphoma Status: Chronic
--- NOTE | 2020-03-04 14:48 | PCM.PROG ---
Progress Note - Progress Note for Day of Date of Exam: 03/04/20 - Subjective Subjective: WAS ADMITTED FOR TREATMENT OF METASTATIC DISEASE, INTRACTABLE DIARRHEA, LEUKOCYTOSIS. HE HAS A HISTORY OF LYMPHOMA. TODAY, HE IS ALERT, LYING IN BED ON MORNING ROUNDS. PATIENT CONTINUES WITH COMPLAINTS OF ABDOMINAL PAIN AND WEAKNESS THIS MORNING. ON EXAMINATION, HEART IS REGULAR IN RATE AND RHYTHM. BILATERAL LUNGS ARE NOTED WITH DIMINISHED LUNG SOUNDS THROUGHOUT. ABDOMEN IS ROUND, SOFT, AND NOTED WITH DIFFUSE TENDERNESS. INCREASED BOWEL SOUNDS NOTED. HIS VITALS THIS MORNING ARE: 97.5-76-20-97%-131/87. LABS WERE OBTAINED. ABNORMAL LAB VALUES INCLUDE THE FOLLOWING: WBC 16.4, RBC 4.59, HGB 13.2, HCT 41.5, CALCIUM 7.9, AST 58, ALT 89, ALK PHOS 331, TOTAL PROTEIN 5.0, ALBUMIN 2.4. STOOL STUDIES ARE POSITIVE FOR OCCULT BLOOD AND WHITE CELLS. URINE CULTURE REVEALS GROWTH OF E.COLI. HE IS CURRENTLY RECEIVING NS AT 125 ML/HR, FORTAZ 1G IV Q8H, INVANZ 1G IV DAILY, LOVENOX 40MG SC DAILY, DEMEROL 25MG IV Q4H PRN, LOMOTIL 1 TAB PO BID, RESTORIL 15MG PO HS PRN, THE POTASSIUM AND MAG NESUM PROTOCOLS, AND ZOFRAN 25MG IV Q4H PRN. WE WILL CONTINUE WITH CURRENT PLAN OF CARE TODAY. HAS CONSULTED WITH PATIENT AND PLANS FOR A COLONOSCOPY TOMORROW. WE WILL BEGIN PREP THIS AFTERNOON. WE WILL HOLD LOVENOX. OTHERWISE, WE WILL FOLLOW UP WITH AM LABS AND CONTINUE TO MONITOR. - Past Medical Family Social History Past Med/Fam/Surg Hx: No changes since H&P Allergies: Allergies levofloxacin [From Levaquin] Allergy (Verified 02/26/20 10:52) - Review of Systems ROS: No change since H&P - Vital Signs and I&O's Vital Signs: Temperature 97.7 F Pulse Rate [Bilateral Radial] 80 Pulse Rate 80 Respiratory Rate 20 Blood Pressure [Left Arm] 144/90 Blood Pressure [Right Arm] 133/91 Blood Pressure 118/77 O2 Sat by Pulse Oximetry 95 Intake and Output: Intake & Output 03/02/20 03/03/20 03/04/20 03/05/20 12:59 11:59 11:59 11:59 Intake Total 2410 / 2410 Output Total 1175 / 1175 Balance 1235 / 1235 - Physical Exam Oriented: Person, Place Eyes: Normal Ear: Normal Nose: Normal Throat: Normal Respiratory: Generalized, Diminished Cardiovascular: Normal : Normal Auscultation: Bowel Sounds: Increased Tenderness: Diffuse Skin: Normal Musculoskeletal: Normal Psychiatric: Normal Mood Description: Calm Affect: Normal Speech Pattern: Clear, Appropriate - Laboratory and Diagnostics Result Diagrams: 03/04/20 04:30 03/04/20 04:30 Labs: 02/27/20 19:40 Urine,Clean Catch Urine Culture - Final Escherichia Coli 02/26/20 12:06 Stool Stool Culture - Final 02/26/20 12:06 Stool - Final Laboratory WBC 16.4 X10^3/uL (3.6-10.0) H 03/04/20 04:30 RBC 4.59 X10^6/uL (4.7-6.0) L 03/04/20 04:30 Hgb 13.2 g/dL (13.5-18.0) L 03/04/20 04:30 Hct 41.5 % (42.0-54.0) L 03/04/20 04:30 MCV 90.4 fL (80.0-100.0) 03/04/20 04:30 MCH 28.7 pg (27.0-34.0) 03/04/20 04:30 MCHC 31.7 g/dL (33.0-35.0) L 03/04/20 04:30 RDW 16.8 % (11.6-16.5) H 03/04/20 04:30 Plt Count 291 X10^3/uL (150.0-450.0) 03/04/20 04:30 Plt Count Comment Adequate (ADEQUATE) 03/04/20 04:30 MPV 6.0 fL (7.4-11.0) L 03/04/20 04:30 Neut % (Auto) 57.4 % (42.0-75.0) 03/04/20 04:30 Lymph % (Auto) 9.8 % (21.0-51.0) L 03/04/20 04:30 [place] % (Auto) 9.0 % (0.0-13.0) 03/04/20 04:30 Eos % (Auto) 23.3 % (0.9-2.9) H 03/04/20 04:30 Baso % (Auto) 0.5 % (0.2-1.0) 03/04/20 04:30 Neut # (Auto) 9.4 x10^3/uL (2.2-4.8) H 03/04/20 04:30 Lymph # (Auto) 1.6 X10^3/uL (1.3-2.9) 03/04/20 04:30 [place] # (Auto) 1.5 x10^3/uL (0.3-0.8) H 03/04/20 04:30 Eos # (Auto) 3.8 x10^3/uL (0.0-0.2) H 03/04/20 04:30 Baso # (Auto) 0.1 X10^3/uL (0.0-0.1) 03/04/20 04:30 Absolute Nucleated RBC 0.1 /100WBC 03/04/20 04:30 Total Counted 100 03/04/20 04:30 Neutrophils % (Manual) 55 % (39-76) 03/04/20 04:30 Band Neutrophils % 1 % (0-10) 02/29/20 04:14 Lymphocytes % (Manual) 16 % (13-43) 03/04/20 04:30 Monocytes % (Manual) 2 % (4-9) L 03/04/20 04:30 Eosinophils % (Manual) 27 % (0-6) H 03/04/20 04:30 Plt Morphology Comment Normal (NORMAL) 03/04/20 04:30 RBC Morphology Normal (NORMAL) 03/04/20 04:30 Sodium 138 mmol/L (136-145) 03/04/20 04:30 Corrected Sodium TNP 03/04/20 04:30 Potassium 4.0 mmol/L (3.5-5.1) 03/04/20 04:30 Chloride 103 mmol/L (98-107) 03/04/20 04:30 Carbon Dioxide 28.5 mmol/L (21-32) 03/04/20 04:30 BUN 7 mg/dL (7-18) 03/04/20 04:30 Creatinine 0.92 mg/dL (0.70-1.30) 03/04/20 04:30 Est GFR (MDRD) Af Amer > 60 (>60) 03/04/20 04:30 Est GFR (MDRD) Non-Af > 60 (>60) 03/04/20 04:30 Glucose 90 mg/dL (65-99) 03/04/20 04:30 Calcium 7.9 mg/dL (8.5-10.1) L 03/04/20 04:30 Corrected Calcium 9.2 mg/dL (8.5-10.1) 03/04/20 04:30 Magnesium 2.2 mg/dL (1.7-2.9) 03/03/20 04:10 Total Bilirubin 0.50 mg/dL (0.2-1.0) 03/04/20 04:30 AST 58 Units/L (15-37) H 03/04/20 04:30 ALT 89 Units/L (12-78) H 03/04/20 04:30 Alkaline Phosphatase 331 Units/L (46-116) H 03/04/20 04:30 Total Protein 5.0 g/dL (6.4-8.2) L 03/04/20 04:30 Albumin 2.4 g/dL (3.4-5.0) L 03/04/20 04:30 Globulin 2.6 g/dL (2.5-4.5) 03/04/20 04:30 Albumin/Globulin Ratio 0.9 Ratio (1.1-2.1) L 03/04/20 04:30 Lipase 92 Units/L (73-393) 02/26/20 12:15 Carcinoembryonic Ag 8.5 ng/mL (0.0-3.0) H 02/26/20 12:15 Specimen Type Clean catch urine 02/27/20 19:40 Urine Color Yellow (YELLOW) 02/27/20 19:40 Urine Appearance Clear (CLEAR) 02/27/20 19:40 Urine pH 6.0 (5.0 - 8.0) 02/27/20 19:40 Ur Specific [place] 1.015 (1.000-1.030) 02/27/20 19:40 Urine Protein 2+ (NEGATIVE) 02/27/20 19:40 Urine Glucose (UA) Negative (NEGATIVE) 02/27/20 19:40 Urine Ketones Negative (NEGATIVE) 02/27/20 19:40 Urine Occult Blood 1+ (NEGATIVE) 02/27/20 19:40 Urine Nitrite Positive (NEGATIVE) 02/27/20 19:40 Urine Bilirubin Negative (NEGATIVE) 02/27/20 19:40 Urine Urobilinogen Normal (NORMAL) 02/27/20 19:40 Ur Leukocyte Esterase 3+ (NEGATIVE) 02/27/20 19:40 Urine RBC 5-10 /HPF (0-3) A 02/27/20 19:40 Urine WBC 30-50 /HPF (0-5) A 02/27/20 19:40 Ur Squamous Epith Cells Negative /HPF (NEGATIVE) 02/27/20 19:40 Urine Bacteria Negative /HPF (NEGATIVE) 02/27/20 19:40 Ur Culture Indicated? Yes/culture set up 02/27/20 19:40 Stool Description 20g liquid brown 02/26/20 12:06 Stl Occult Blood (IFOB) Positive (NEGATIVE) A 02/26/20 12:06 Stool for White Cells Positive (NEGATIVE) A 02/26/20 12:06 Stl C. diff Tox B Gene Negative (NEGATIVE) 02/26/20 12:06 Stl C. diff [id number] Negative (NEGATIVE) 02/26/20 12:06 - Plan (1) Metastatic disease Status: Acute Qualifiers: Area of secondary neoplastic involvement: unspecified site Qualified Code(s): C79.9 - Secondary malignant neoplasm of unspecified site Plan: NS AT 125 ML/HR, FORTAZ 1 IV Q8H, LOVENOX 40MG SC DAILY, DEMEROL 25MG IV Q4H PRN, LOMOTIL 1 TAB QID, AND ZOFRAN 25MG IV Q4H PRN. CONSULT GI FOR COLONOSCOPY (2) Intractable diarrhea Status: Acute Plan: STOOL CULTURE PENDING. FORTAZ 1G IV Q8H, CONTINUE TO MONITOR (3) Leukocytosis Status: Acute Qualifiers: Leukocytosis type: unspecified Qualified Code(s): D72.829 - Elevated white blood cell count, unspecified Plan: FORTAZ 1G IV Q8H, INVANZ 1G IV DAILY, CONTINUE TO MONITOR (4) E. coli UTI (urinary tract infection) Status: Acute (5) Hypokalemia Status: Acute Plan: POTASSIUM PROTOCOL (6) History of lymphoma Status: Chronic
--- NOTE | 2020-03-04 15:34 | RAD ---
HISTORYPRE-OP COLONOSCOPYSTUDYCHEST x-ray, 1 VIEWCOMPARISONNoneFINDINGSCardiomegaly with pulmonary vascular congestion. Probable bilateral pulmonary edema. Lung volumes are low. Possible moderate right pleural effusion. No pneumothorax is seen.IMPRESSIONProbable CHF and pulmonary edema with moderate right pleural effusion.Electronically signed by: Terrance Higgins (Mar 04, 2020 15:32:41)
[2020-03-04] MEDS ORDERED: CITROMA PO ONE (16:38)
[2020-03-04] MEDS ORDERED: DULCOLAX TAB EC 5 MG PO ONE ×2 (16:39→16:51)
[2020-03-04] MEDS ORDERED: CITROMA ONE (16:51)
[2020-03-05] MEDS: NS 1000 ML 1,000 ML IV SCH ×4 (00:37→18:42)
[2020-03-05] MEDS: ZOFRAN INJ 4 MG VIAL IVP PRN ×3 (04:00→23:00)
--- NOTE | 2020-03-05 06:00 | RAD ---
STUDY: KUBCOMPARISON: NoneHISTORY: NG TUBE PLACEMENTFINDINGS:There is no evidence of fracture or joint dislocation.There is no evidence of an embedded radiopaque foreign body.IMPRESSION:There is no evidence of fracture or joint dislocation.Electronically signed by: Zev Blancas (Mar 05, 2020 05:59:05)
[2020-03-05 06:19] LABS: BASOPHILS # (AUTO) 0.1 X10^3/uL (0.0-0.1); BASOPHILS % (AUTO) 0.7 % (0.2-1.0); EOSINOPHILS # (AUTO) 1.8 x10^3/uL (0.0-0.2); EOSINOPHILS % (AUTO) 10.1 % (0.9-2.9); HEMATOCRIT 46.1 % (42.0-54.0); HEMOGLOBIN 15.1 g/dL (13.5-18.0); LYMPHOCYTES # (AUTO) 1.2 X10^3/uL (1.3-2.9); LYMPHOCYTES % (AUTO) 6.5 % (21.0-51.0); MEAN CORPUSCULAR HEMOGLOBIN 29.1 pg (27.0-34.0); MEAN CORPUSCULAR HGB CONC 32.7 g/dL (33.0-35.0); MEAN CORPUSCULAR VOLUME 89.1 fL (80.0-100.0); MEAN PLATELET VOLUME 5.8 fL (7.4-11.0); MONOCYTES # (AUTO) 1.2 x10^3/uL (0.3-0.8); MONOCYTES % (AUTO) 6.8 % (0.0-13.0); NEUTROPHILS # (AUTO) 13.8 x10^3/uL (2.2-4.8); NEUTROPHILS % (AUTO) 75.9 % (42.0-75.0); PLATELET COUNT 319 X10^3/uL (150.0-450.0); RED BLOOD COUNT 5.17 X10^6/uL (4.7-6.0); RED CELL DISTRIBUTION WIDTH 17.2 % (11.6-16.5); WHITE BLOOD COUNT 18.2 X10^3/uL (3.6-10.0)
[2020-03-05 06:50] LABS: ALANINE AMINOTRANSFERASE 111 Units/L (12-78); ALKALINE PHOSPHATASE 461 Units/L (46-116); ASPARTATE AMINO TRANSFERASE 107 Units/L (15-37); BLOOD UREA NITROGEN 10 mg/dL (7-18); CARBON DIOXIDE 30.3 mmol/L (21-32); CHLORIDE 101 mmol/L (98-107); COR CA(FOR HYPOALB) 9.8 mg/dL (8.5-10.1); CREATININE 0.89 mg/dL (0.70-1.30); SODIUM 138 mmol/L (136-145); TOTAL PROTEIN 5.9 g/dL (6.4-8.2); eGFR NON BLACK RACES > 60 (>60)
[2020-03-05] MEDS ORDERED: DIPRIVAN VIAL 20 ML ONE (07:40)
[2020-03-05] MEDS ORDERED: NS 500 ML IV 500 ML IV ONE (07:59)
[2020-03-05] MEDS: PEPCID 20 MG IV PREMIX* 20 MG/50 ML BAG IV SCH (09:53)
[2020-03-05] MEDS: PROTONIX INJ 40 MG VIAL IVP SCH (09:54)
[2020-03-05] MEDS: INVANZ INJ 1 GM VIAL 1 GM in NS 100 ML IV + SPIKE MINIBAG* 100 ML IV SCH (09:54)
--- NOTE | 2020-03-05 10:17 | RAD ---
HISTORYSOB, METSTATIC LIVER DISEASESTUDYCHEST x-ray, 1 VIEWCOMPARISONX-ray 03/04/2020FINDINGSEnteric tube passes into the stomach. Probable bilateral CHF and pulmonary edema are similar to prior study. There is slight improved inspiration compared to prior study. No pneumothorax or pleural effusion is seen.IMPRESSIONProbable persistent CHF and pulmonary edema. Possible improvement of suspected right pleural effusionElectronically signed by: Terrance Higgins (Mar 05, 2020 10:15:49)
[2020-03-05] MEDS: NULYTELY or GO-LYTELY PO SCH ×2 (12:25→13:11)
[2020-03-05] MEDS: DEMEROL INJ IVP PRN ×2 (14:55→23:00)
[2020-03-05] MEDS: LOMOTIL PO SCH (17:24)
[2020-03-05] MEDS: TORADOL 30 MG VIAL IVP PRN (18:16)
--- NOTE | 2020-03-05 22:14 | PCM.PROG ---
Progress Note - Progress Note for Day of Date of Exam: 03/05/20 - Subjective Subjective: WAS ADMITTED FOR TREATMENT OF METASTATIC DISEASE, INTRACTABLE DIARRHEA, LEUKOCYTOSIS. HE HAS A HISTORY OF LYMPHOMA. BOWEL PREP WAS STARTED YESTERDAY FOR COLONOSCOPY. EARLY THIS MORNING, PATIENT BEGAN TO HAVE INTRACTABLE VOMITING. HE WAS NOTED WITH COFFEE GROUND EMESIS. AN NG TUBE WAS PLACED AND WAS CONNECTED TO LOW INTERMITTENT SUCTION. TODAY, HE IS ALERT, LYING IN BED ON MORNING ROUNDS. PATIENT CONTINUES WITH COMPLAINTS OF ABDOMINAL PAIN AND WEAKNESS THIS MORNING. ON EXAMINATION, HEART IS REGULAR IN RATE AND RHYTHM. BILATERAL LUNGS ARE NOTED WITH DIMINISHED LUNG SOUNDS THROUGHOUT. ABDOMEN IS ROUND, SOFT, AND NOTED WITH DIFFUSE TENDERNESS. INCREASED BOWEL SOUNDS NOTED. HIS VITALS THIS MORNING ARE: 97.8-84-20-96%[place]-143/85. LABS WERE OBTAINED. ABNORMAL LAB VALUES INCLUDE THE FOLLOWING: WBC 18.2, POTASSIUM 5.2, AST 107, ALT 111, ALK PHOS 461, TOTAL PROTEIN 5.9. STOOL STUDIES ARE POSITIVE FOR OCCULT BLOOD AND WHITE CELLS. URINE CULTURE REVEALS GROWTH OF E.COLI. A CHEST XRAY WAS OBTAINE THIS MORNING AND REVEALED: Probable persistent CHF and pulmonary edema. Possible improvement of suspected right pleural effusion. HE IS CURRENTLY RECEIVING NS AT 125 ML/HR, FORTAZ 1G IV Q8H, INVANZ 1G IV DAILY, LOVENOX 40MG SC DAILY, DEMEROL 25MG IV Q4H PRN, LOMOTIL 1 TAB PO BID, RESTORIL 15MG PO HS PRN, THE POTASSIUM AND MAGNESUM PROTOCOLS, AND ZOFRAN 25MG IV Q4H PRN. WE WILL CONTIN UE WITH CURRENT PLAN OF CARE TODAY. PLANS TO REPEAT COLONOSCOPY AND EGD TOMORROW WHEN SATISFACTORY PREP HAS BEEN COMPLETED. WE ARE IN AGREEMENT WITH PLANS. WE WILL CONTINUE TO HOLD LOVENOX. OTHERWISE, WE WILL FOLLOW UP WITH AM LABS AND CONTINUE TO MONITOR. - Past Medical Family Social History Past Med/Fam/Surg Hx: No changes since H&P Allergies: Allergies levofloxacin [From Levaquin] Allergy (Verified 02/26/20 10:52) - Review of Systems ROS: No change since H&P - Vital Signs and I&O's Vital Signs: Temperature 97.6 F Pulse Rate [Bilateral Radial] 89 Pulse Rate 80 Respiratory Rate 22 Blood Pressure [Left Arm] 136/89 Blood Pressure [Right Arm] 133/91 Blood Pressure 118/77 O2 Sat by Pulse Oximetry 96 Intake and Output: Intake & Output 03/03/20 03/04/20 03/05/20 03/06/20 11:59 11:59 11:59 11:59 Intake Total 2410 / 2410 3087 / 3087 638 / 638 Output Total 1175 / 1175 2800 / 2800 850 / 850 Balance 1235 / 1235 287 / 287 -212 / -212 - Physical Exam Oriented: Person, Place Eyes: Normal Ear: Normal Nose: Normal Throat: Normal Respiratory: Generalized, Diminished Cardiovascular: Normal : Normal Auscultation: Bowel Sounds: Increased Palpation: Normal Tenderness: Diffuse Skin: Normal Musculoskeletal: Normal Psychiatric: Normal Mood Description: Calm Affect: Normal Speech Pattern: Clear, Appropriate - Laboratory and Diagnostics Result Diagrams: 03/05/20 05:57 03/05/20 05:57 Labs: 02/27/20 19:40 Urine,Clean Catch Urine Culture - Final Escherichia Coli 02/26/20 12:06 Stool Stool Culture - Final 02/26/20 12:06 Stool - Final Laboratory WBC 18.2 X10^3/uL (3.6-10.0) H 03/05/20 05:57 RBC 5.17 X10^6/uL (4.7-6.0) 03/05/20 05:57 Hgb 15.1 g/dL (13.5-18.0) 03/05/20 05:57 Hct 46.1 % (42.0-54.0) 03/05/20 05:57 MCV 89.1 fL (80.0-100.0) 03/05/20 05:57 MCH 29.1 pg (27.0-34.0) 03/05/20 05:57 MCHC 32.7 g/dL (33.0-35.0) L 03/05/20 05:57 RDW 17.2 % (11.6-16.5) H 03/05/20 05:57 Plt Count 319 X10^3/uL (150.0-450.0) 03/05/20 05:57 Plt Count Comment Adequate (ADEQUATE) 03/04/20 04:30 MPV 5.8 fL (7.4-11.0) L 03/05/20 05:57 Neut % (Auto) 75.9 % (42.0-75.0) H 03/05/20 05:57 Lymph % (Auto) 6.5 % (21.0-51.0) L 03/05/20 05:57 [place] % (Auto) 6.8 % (0.0-13.0) 03/05/20 05:57 Eos % (Auto) 10.1 % (0.9-2.9) H 03/05/20 05:57 Baso % (Auto) 0.7 % (0.2-1.0) 03/05/20 05:57 Neut # (Auto) 13.8 x10^3/uL (2.2-4.8) H 03/05/20 05:57 Lymph # (Auto) 1.2 X10^3/uL (1.3-2.9) L 03/05/20 05:57 [place] # (Auto) 1.2 x10^3/uL (0.3-0.8) H 03/05/20 05:57 Eos # (Auto) 1.8 x10^3/uL (0.0-0.2) H 03/05/20 05:57 Baso # (Auto) 0.1 X10^3/uL (0.0-0.1) 03/05/20 05:57 Absolute Nucleated RBC 0.3 /100WBC 03/05/20 05:57 Total Counted 100 03/04/20 04:30 Neutrophils % (Manual) 55 % (39-76) 03/04/20 04:30 Band Neutrophils % 1 % (0-10) 02/29/20 04:14 Lymphocytes % (Manual) 16 % (13-43) 03/04/20 04:30 Monocytes % (Manual) 2 % (4-9) L 03/04/20 04:30 Eosinophils % (Manual) 27 % (0-6) H 03/04/20 04:30 Plt Morphology Comment Normal (NORMAL) 03/04/20 04:30 RBC Morphology Normal (NORMAL) 03/04/20 04:30 Sodium 138 mmol/L (136-145) 03/05/20 05:57 Corrected Sodium TNP 03/05/20 05:57 Potassium 5.2 mmol/L (3.5-5.1) H 03/05/20 05:57 Chloride 101 mmol/L (98-107) 03/05/20 05:57 Carbon Dioxide 30.3 mmol/L (21-32) 03/05/20 05:57 BUN 10 mg/dL (7-18) 03/05/20 05:57 Creatinine 0.89 mg/dL (0.70-1.30) 03/05/20 05:57 Est GFR (MDRD) Af Amer > 60 (>60) 03/05/20 05:57 Est GFR (MDRD) Non-Af > 60 (>60) 03/05/20 05:57 Glucose 96 mg/dL (65-99) 03/05/20 05:57 Calcium 9.0 mg/dL (8.5-10.1) 03/05/20 05:57 Corrected Calcium 9.8 mg/dL (8.5-10.1) 03/05/20 05:57 Magnesium 2.2 mg/dL (1.7-2.9) 03/03/20 04:10 Total Bilirubin 1.00 mg/dL (0.2-1.0) 03/05/20 05:57 AST 107 Units/L (15-37) H 03/05/20 05:57 ALT 111 Units/L (12-78) H 03/05/20 05:57 Alkaline Phosphatase 461 Units/L (46-116) H 03/05/20 05:57 Total Protein 5.9 g/dL (6.4-8.2) L 03/05/20 05:57 Albumin 3.0 g/dL (3.4-5.0) L 03/05/20 05:57 Globulin 2.9 g/dL (2.5-4.5) 03/05/20 05:57 Albumin/Globulin Ratio 1.0 Ratio (1.1-2.1) L 03/05/20 05:57 Lipase 92 Units/L (73-393) 02/26/20 12:15 Carcinoembryonic Ag 8.5 ng/mL (0.0-3.0) H 02/26/20 12:15 Specimen Type Clean catch urine 02/27/20 19:40 Urine Color Yellow (YELLOW) 02/27/20 19:40 Urine Appearance Clear (CLEAR) 02/27/20 19:40 Urine pH 6.0 (5.0 - 8.0) 02/27/20 19:40 Ur Specific [place] 1.015 (1.000-1.030) 02/27/20 19:40 Urine Protein 2+ (NEGATIVE) 02/27/20 19:40 Urine Glucose (UA) Negative (NEGATIVE) 02/27/20 19:40 Urine Ketones Negative (NEGATIVE) 02/27/20 19:40 Urine Occult Blood 1+ (NEGATIVE) 02/27/20 19:40 Urine Nitrite Positive (NEGATIVE) 02/27/20 19:40 Urine Bilirubin Negative (NEGATIVE) 02/27/20 19:40 Urine Urobilinogen Normal (NORMAL) 02/27/20 19:40 Ur Leukocyte Esterase 3+ (NEGATIVE) 02/27/20 19:40 Urine RBC 5-10 /HPF (0-3) A 02/27/20 19:40 Urine WBC 30-50 /HPF (0-5) A 02/27/20 19:40 Ur Squamous Epith Cells Negative /HPF (NEGATIVE) 02/27/20 19:40 Urine Bacteria Negative /HPF (NEGATIVE) 02/27/20 19:40 Ur Culture Indicated? Yes/culture set up 02/27/20 19:40 Stool Description 20g liquid brown 02/26/20 12:06 Stl Occult Blood (IFOB) Positive (NEGATIVE) A 02/26/20 12:06 Stool for White Cells Positive (NEGATIVE) A 02/26/20 12:06 Stl C. diff Tox B Gene Negative (NEGATIVE) 02/26/20 12:06 Stl C. diff [id number] Negative (NEGATIVE) 02/26/20 12:06 - Plan (1) Metastatic disease Status: Acute Qualifiers: Area of secondary neoplastic involvement: unspecified site Qualified Code(s): C79.9 - Secondary malignant neoplasm of unspecified site Plan: NS AT 125 ML/HR, FORTAZ 1 IV Q8H, LOVENOX 40MG SC DAILY, DEMEROL 25MG IV Q4H PRN, LOMOTIL 1 TAB QID, AND ZOFRAN 25MG IV Q4H PRN. (2) Intractable diarrhea Status: Acute Plan: STOOL CULTURE PENDING. FORTAZ 1G IV Q8H, CONTINUE TO MONITOR (3) Leukocytosis Status: Acute Qualifiers: Leukocytosis type: unspecified Qualified Code(s): D72.829 - Elevated white blood cell count, unspecified Plan: FORTAZ 1G IV Q8H, INVANZ 1G IV DAILY, CONTINUE TO MONITOR (4) E. coli UTI (urinary tract infection) Status: Acute (5) Hypokalemia Status: Acute Plan: POTASSIUM PROTOCOL (6) History of lymphoma Status: Chronic
[2020-03-06] MEDS: NS 1000 ML 1,000 ML IV SCH ×3 (03:24→18:12)
[2020-03-06 06:13] LABS: BASOPHILS # (AUTO) 0.1 X10^3/uL (0.0-0.1); BASOPHILS % (AUTO) 0.8 % (0.2-1.0); EOSINOPHILS # (AUTO) 1.4 x10^3/uL (0.0-0.2); HEMATOCRIT 42.9 % (42.0-54.0); HEMOGLOBIN 13.8 g/dL (13.5-18.0); LYMPHOCYTES # (AUTO) 1.4 X10^3/uL (1.3-2.9); LYMPHOCYTES % (AUTO) 9.4 % (21.0-51.0); MEAN CORPUSCULAR HGB CONC 32.1 g/dL (33.0-35.0); MEAN CORPUSCULAR VOLUME 90.5 fL (80.0-100.0); MEAN PLATELET VOLUME 5.7 fL (7.4-11.0); MONOCYTES # (AUTO) 1.4 x10^3/uL (0.3-0.8); MONOCYTES % (AUTO) 8.8 % (0.0-13.0); NEUTROPHILS # (AUTO) 11.1 x10^3/uL (2.2-4.8); PLATELET COUNT 290 X10^3/uL (150.0-450.0); RED BLOOD COUNT 4.74 X10^6/uL (4.7-6.0); RED CELL DISTRIBUTION WIDTH 17.2 % (11.6-16.5); WHITE BLOOD COUNT 15.3 X10^3/uL (3.6-10.0)
[2020-03-06 06:22] LABS: ALANINE AMINOTRANSFERASE 103 Units/L (12-78); ALBUMIN 2.6 g/dL (3.4-5.0); ALKALINE PHOSPHATASE 382 Units/L (46-116); ASPARTATE AMINO TRANSFERASE 109 Units/L (15-37); BLOOD UREA NITROGEN 13 mg/dL (7-18); CALCIUM 8.3 mg/dL (8.5-10.1); CARBON DIOXIDE 34.3 mmol/L (21-32); CHLORIDE 100 mmol/L (98-107); COR CA(FOR HYPOALB) 9.4 mg/dL (8.5-10.1); SODIUM 138 mmol/L (136-145); TOTAL PROTEIN 5.1 g/dL (6.4-8.2); eGFR NON BLACK RACES > 60 (>60)
--- NOTE | 2020-03-06 07:31 | RAD ---
HISTORYSOBSTUDYCHEST, 1 [id number] view of the chestFINDINGSNG tube in good position. Stable cardiomegaly. Stable bilateral scattered airspace opacities. Small right pleural effusion. No pneumothorax.IMPRESSIONNo significant change.Electronically signed by: Moi Bella (Mar 06, 2020 07:29:49)
[2020-03-06] MEDS: INVANZ INJ 1 GM VIAL 1 GM in NS 100 ML IV + SPIKE MINIBAG* 100 ML IV SCH (08:34)
[2020-03-06] MEDS: PROTONIX INJ 40 MG VIAL IVP SCH (08:35)
[2020-03-06] MEDS: PEPCID 20 MG IV PREMIX* 20 MG/50 ML BAG IV SCH (08:35)
[2020-03-06] MEDS ORDERED: DIPRIVAN VIAL 20 ML ONE (09:19)
--- NOTE | 2020-03-06 09:53 | OR.IMMED ---
Immediate Post-Op Note - Immediate Post-Op Note Pre-Op Diagnosis: diarrhea . rectal bleeding , liver mets, elevated CEA level . Post-Op Diagnosis: large friable lesion of the AC with moderate bleeding . blood and clots in the Rt colon . poor prep . Procedure: colonoscopy to AC with Bx Surgeon/Manager Operations Research: Kym Specimens Removed: Bx Rt colon ( AC ) Drains: NONE Complications: none Condition: Stable (to advance diet to regular) Final Diagnosis: Rt colon ca at the AC .
[2020-03-06] MEDS: NULYTELY or GO-LYTELY PO SCH ×2 (10:41)
[2020-03-06] MEDS ORDERED: STERILE WATER IRRIGATION IR ONE (14:40)
[2020-03-06] MEDS: DEMEROL INJ IVP PRN (14:43)
[2020-03-06] MEDS: RESTORIL CAP 15 MG PO PRN (20:39)
[2020-03-06] MEDS: TORADOL 30 MG VIAL IVP PRN (20:40)
--- NOTE | 2020-03-07 06:06 | RAD ---
HISTORYShortness of breathSTUDYChest AP [id number] tube is no longer identified. There is gastric disten darryl present. The heart remains enlarged. Bilateral interstitial and alveolar infiltrates appear to b e increasing when compared with the prior examination. This could be on the basis of worsening bilate ral pneumonia or worsening congestive heart failure. Clinical correlation as the presence or absence of parameters of infection recommended. Right pleural effusion is present increased when compared wit h the prior examination. Bony thorax is unremarkable.IMPRESSIONCardiomegaly with worsening bilateral interstitial and alveolar infiltrates which could represent worsening congestive heart failure or wor sening bilateral pneumoniaIncreasing right pleural effusionElectronically signed by: ISABELL JEFFERSON (N 2019 06:04:24)
[2020-03-07 06:21] LABS: BASOPHILS # (AUTO) 0.1 X10^3/uL (0.0-0.1); BASOPHILS % (AUTO) 0.5 % (0.2-1.0); EOSINOPHILS # (AUTO) 2.4 x10^3/uL (0.0-0.2); EOSINOPHILS % (AUTO) 13.7 % (0.9-2.9); HEMATOCRIT 42.1 % (42.0-54.0); HEMOGLOBIN 13.6 g/dL (13.5-18.0); LYMPHOCYTES # (AUTO) 1.6 X10^3/uL (1.3-2.9); LYMPHOCYTES % (AUTO) 9.1 % (21.0-51.0); MEAN CORPUSCULAR HEMOGLOBIN 29.3 pg (27.0-34.0); MEAN CORPUSCULAR HGB CONC 32.4 g/dL (33.0-35.0); MEAN CORPUSCULAR VOLUME 90.4 fL (80.0-100.0); MEAN PLATELET VOLUME 5.8 fL (7.4-11.0); MONOCYTES # (AUTO) 1.8 x10^3/uL (0.3-0.8); MONOCYTES % (AUTO) 10.2 % (0.0-13.0); NEUTROPHILS # (AUTO) 11.5 x10^3/uL (2.2-4.8); NEUTROPHILS % (AUTO) 66.5 % (42.0-75.0); PLATELET COUNT 279 X10^3/uL (150.0-450.0); RED BLOOD COUNT 4.65 X10^6/uL (4.7-6.0); RED CELL DISTRIBUTION WIDTH 17.7 % (11.6-16.5); WHITE BLOOD COUNT 17.3 X10^3/uL (3.6-10.0)
[2020-03-07 06:28] LABS: ALANINE AMINOTRANSFERASE 108 Units/L (12-78); ALBUMIN 2.7 g/dL (3.4-5.0); ALKALINE PHOSPHATASE 411 Units/L (46-116); ASPARTATE AMINO TRANSFERASE 127 Units/L (15-37); BLOOD UREA NITROGEN 14 mg/dL (7-18); CALCIUM 8.2 mg/dL (8.5-10.1); CHLORIDE 101 mmol/L (98-107); COR CA(FOR HYPOALB) 9.2 mg/dL (8.5-10.1); CREATININE 0.88 mg/dL (0.70-1.30); SODIUM 138 mmol/L (136-145); TOTAL PROTEIN 5.2 g/dL (6.4-8.2); eGFR NON BLACK RACES > 60 (>60)
[2020-03-07] MEDS: NS 1000 ML 1,000 ML IV SCH ×3 (06:39→19:45)
[2020-03-07] MEDS: INVANZ INJ 1 GM VIAL 1 GM in NS 100 ML IV + SPIKE MINIBAG* 100 ML IV SCH (08:18)
[2020-03-07] MEDS: PEPCID 20 MG IV PREMIX* 20 MG/50 ML BAG IV SCH (08:18)
[2020-03-07] MEDS: PROTONIX INJ 40 MG VIAL IVP SCH (08:18)
[2020-03-07] MEDS: TORADOL 30 MG VIAL IVP PRN ×3 (08:34→23:10)
[2020-03-07] MEDS: FORTAZ or TAZICEF VIAL INJ 2 G in NS 100 ML IV + SPIKE MINIBAG* 100 ML IV SCH ×3 (10:33→21:15)
--- NOTE | 2020-03-07 11:51 | PCM.PROG ---
Progress Note - Progress Note for Day of Date of Exam: 03/06/20 - Subjective Subjective: WAS ADMITTED FOR TREATMENT OF METASTATIC DISEASE, INTRACTABLE DIARRHEA, LEUKOCYTOSIS, UTI. HE HAS A HISTORY OF LYMPHOMA. PATIENT HAS BEEN RECEIVING BOWEL PREP FOR A COLONOSCOPY TODAY. TODAY, HE IS ALERT, LYING IN BED ON MORNING ROUNDS. PATIENT CONTINUES WITH COMPLAINTS OF ABDOMINAL PAIN AND WEAKNESS THIS MORNING. ON EXAMINATION, THERE IS AN NG TUBE NOTED. HEART IS REGULAR IN RATE AND RHYTHM. BILATERAL LUNGS ARE NOTED WITH DIMINISHED LUNG SOUNDS THROUGHOUT. ABDOMEN IS ROUND, SOFT, AND NOTED WITH DIFFUSE TENDERNESS. INCREASED BOWEL SOUNDS NOTED. HIS VITALS THIS MORNING ARE: 97.2 -80-20-97%NC-129/74. LABS WERE OBTAINED. ABNORMAL LAB VALUES INCLUDE THE FOLLOWING: WBC 15.3, CARBON DIOXIDE 34.3, CALCIUM 8.3, AST 109, ALT 103, ALK PHOS 382, TOTAL PROTEIN 5.1, ALBUMIN 2.6. STOOL STUDIES ARE POSITIVE FOR OCCULT BLOOD AND WHITE CELLS. URINE CULTURE REVEALS GROWTH OF E.COLI. A CHEST XRAY WAS OBTAINE THIS MORNING AND REVEALED: NG tube in good position. Stable cardiomegaly. Stable bilateral scattered airspace opacities. Small right pleural effusion. No pneumothorax. HE IS CURRENTLY RECEIVING NS AT 125 ML/HR, INVANZ 1G IV DAILY, LOVENOX 40MG SC DAILY, DEMEROL 25MG IV Q4H PRN, LOMOTIL 1 TAB PO BID, RESTORIL 15MG PO HS PRN, THE POTASSIUM AND MAGNESUM PROTOCOLS, AND ZOFRAN 25MG IV Q4H PRN. WE WILL CONTINUE WITH CURRENT PLAN OF CARE TODAY. PLANS TO REPEAT COLONOSCOPY AND EGD THIS MORNING. WE ARE IN AGREEMENT WITH PLANS. OTHERWISE, WE WILL FOLLOW UP WITH AM LABS AND CONTINUE TO MONITOR. - Past Medical Family Social History Past Med/Fam/Surg Hx: No changes since H&P Allergies: Allergies levofloxacin [From Levaquin] Allergy (Verified 02/26/20 10:52) - Review of Systems ROS: No change since H&P - Vital Signs and I&O's Vital Signs: Temperature 97.2 F Pulse Rate [Bilateral Radial] 86 Pulse Rate 78 Respiratory Rate 18 Blood Pressure [Left Arm] 125/89 Blood Pressure [Right Arm] 133/91 Blood Pressure 118/77 O2 Sat by Pulse Oximetry 93 Intake and Output: Intake & Output 03/04/20 03/05/20 03/06/20 03/07/20 11:59 11:59 11:59 11:59 Intake Total 2410 / 2410 3087 / 3087 1328 / 1328 840 / 840 Output Total 1175 / 1175 2800 / 2800 1750 / 1750 900 / 900 Balance 1235 / 1235 287 / 287 -422 / -422 -60 / -60 - Physical Exam Oriented: Person, Place Eyes: Normal Ear: Normal Nose: Normal Throat: Normal Respiratory: Generalized, Diminished Cardiovascular: Normal : Normal Auscultation: Bowel Sounds: Increased Palpation: Normal Tenderness: Diffuse Skin: Normal Musculoskeletal: Normal Psychiatric: Normal Mood Description: Calm Affect: Normal Speech Pattern: Clear, Appropriate - Laboratory and Diagnostics Result Diagrams: 03/07/20 05:32 03/07/20 05:32 Labs: 02/27/20 19:40 Urine,Clean Catch Urine Culture - Final Escherichia Coli 02/26/20 12:06 Stool Stool Culture - Final 02/26/20 12:06 Stool - Final Laboratory WBC 17.3 X10^3/uL (3.6-10.0) H 03/07/20 05:32 RBC 4.65 X10^6/uL (4.7-6.0) L 03/07/20 05:32 Hgb 13.6 g/dL (13.5-18.0) 03/07/20 05:32 Hct 42.1 % (42.0-54.0) 03/07/20 05:32 MCV 90.4 fL (80.0-100.0) 03/07/20 05:32 MCH 29.3 pg (27.0-34.0) 03/07/20 05:32 MCHC 32.4 g/dL (33.0-35.0) L 03/07/20 05:32 RDW 17.7 % (11.6-16.5) H 03/07/20 05:32 Plt Count 279 X10^3/uL (150.0-450.0) 03/07/20 05:32 Plt Count Comment Adequate (ADEQUATE) 03/04/20 04:30 MPV 5.8 fL (7.4-11.0) L 03/07/20 05:32 Neut % (Auto) 66.5 % (42.0-75.0) 03/07/20 05:32 Lymph % (Auto) 9.1 % (21.0-51.0) L 03/07/20 05:32 [place] % (Auto) 10.2 % (0.0-13.0) 03/07/20 05:32 Eos % (Auto) 13.7 % (0.9-2.9) H 03/07/20 05:32 Baso % (Auto) 0.5 % (0.2-1.0) 03/07/20 05:32 Neut # (Auto) 11.5 x10^3/uL (2.2-4.8) H 03/07/20 05:32 Lymph # (Auto) 1.6 X10^3/uL (1.3-2.9) 03/07/20 05:32 [place] # (Auto) 1.8 x10^3/uL (0.3-0.8) H 03/07/20 05:32 Eos # (Auto) 2.4 x10^3/uL (0.0-0.2) H 03/07/20 05:32 Baso # (Auto) 0.1 X10^3/uL (0.0-0.1) 03/07/20 05:32 Absolute Nucleated RBC 0.0 /100WBC 03/07/20 05:32 Total Counted 100 03/04/20 04:30 Neutrophils % (Manual) 55 % (39-76) 03/04/20 04:30 Band Neutrophils % 1 % (0-10) 02/29/20 04:14 Lymphocytes % (Manual) 16 % (13-43) 03/04/20 04:30 Monocytes % (Manual) 2 % (4-9) L 03/04/20 04:30 Eosinophils % (Manual) 27 % (0-6) H 03/04/20 04:30 Plt Morphology Comment Normal (NORMAL) 03/04/20 04:30 RBC Morphology Normal (NORMAL) 03/04/20 04:30 D-Dimer 3.33 ug/ml (0.0-0.57) H* 03/07/20 10:14 Sodium 138 mmol/L (136-145) 03/07/20 05:32 Corrected Sodium TNP 03/07/20 05:32 Potassium 4.8 mmol/L (3.5-5.1) 03/07/20 05:32 Chloride 101 mmol/L (98-107) 03/07/20 05:32 Carbon Dioxide 33.0 mmol/L (21-32) H 03/07/20 05:32 BUN 14 mg/dL (7-18) 03/07/20 05:32 Creatinine 0.88 mg/dL (0.70-1.30) 03/07/20 05:32 Est GFR (MDRD) Af Amer > 60 (>60) 03/07/20 05:32 Est GFR (MDRD) Non-Af > 60 (>60) 03/07/20 05:32 Glucose 105 mg/dL (65-99) H 03/07/20 05:32 Calcium 8.2 mg/dL (8.5-10.1) L 03/07/20 05:32 Corrected Calcium 9.2 mg/dL (8.5-10.1) 03/07/20 05:32 Magnesium 2.2 mg/dL (1.7-2.9) 03/03/20 04:10 Total Bilirubin 0.60 mg/dL (0.2-1.0) 03/07/20 05:32 AST 127 Units/L (15-37) H 03/07/20 05:32 ALT 108 Units/L (12-78) H 03/07/20 05:32 Alkaline Phosphatase 411 Units/L (46-116) H 03/07/20 05:32 B-Natriuretic Peptide 17.1 pg/mL (0-79) 03/07/20 05:32 Total Protein 5.2 g/dL (6.4-8.2) L 03/07/20 05:32 Albumin 2.7 g/dL (3.4-5.0) L 03/07/20 05:32 Globulin 2.5 g/dL (2.5-4.5) 03/07/20 05:32 Albumin/Globulin Ratio 1.1 Ratio (1.1-2.1) 03/07/20 05:32 Lipase 92 Units/L (73-393) 02/26/20 12:15 Carcinoembryonic Ag 8.5 ng/mL (0.0-3.0) H 02/26/20 12:15 Specimen Type Clean catch urine 02/27/20 19:40 Urine Color Yellow (YELLOW) 02/27/20 19:40 Urine Appearance Clear (CLEAR) 02/27/20 19:40 Urine pH 6.0 (5.0 - 8.0) 02/27/20 19:40 Ur Specific [place] 1.015 (1.000-1.030) 02/27/20 19:40 Urine Protein 2+ (NEGATIVE) 02/27/20 19:40 Urine Glucose (UA) Negative (NEGATIVE) 02/27/20 19:40 Urine Ketones Negative (NEGATIVE) 02/27/20 19:40 Urine Occult Blood 1+ (NEGATIVE) 02/27/20 19:40 Urine Nitrite Positive (NEGATIVE) 02/27/20 19:40 Urine Bilirubin Negative (NEGATIVE) 02/27/20 19:40 Urine Urobilinogen Normal (NORMAL) 02/27/20 19:40 Ur Leukocyte Esterase 3+ (NEGATIVE) 02/27/20 19:40 Urine RBC 5-10 /HPF (0-3) A 02/27/20 19:40 Urine WBC 30-50 /HPF (0-5) A 02/27/20 19:40 Ur Squamous Epith Cells Negative /HPF (NEGATIVE) 02/27/20 19:40 Urine Bacteria Negative /HPF (NEGATIVE) 02/27/20 19:40 Ur Culture Indicated? Yes/culture set up 02/27/20 19:40 Stool Description 20g liquid brown 02/26/20 12:06 Stl Occult Blood (IFOB) Positive (NEGATIVE) A 02/26/20 12:06 Stool for White Cells Positive (NEGATIVE) A 02/26/20 12:06 Stl C. diff Tox B Gene Negative (NEGATIVE) 02/26/20 12:06 Stl C. diff [id number] Negative (NEGATIVE) 02/26/20 12:06 Tissue Pathology To follow 03/06/20 09:35 - Plan (1) Metastatic disease Status: Acute Qualifiers: Area of secondary neoplastic involvement: unspecified site Qualified Code(s): C79.9 - Secondary malignant neoplasm of unspecified site Plan: NS AT 125 ML/HR,INVANZ 1G IV DAILY, LOVENOX 40MG SC DAILY, DEMEROL 25MG IV Q4H PRN, LOMOTIL 1 TAB QID, AND ZOFRAN 25MG IV Q4H PRN. (2) Intractable diarrhea Status: Acute Plan: INVANZ 1G IV DAILY, CONTINUE TO MONITOR (3) Leukocytosis Status: Acute Qualifiers: Leukocytosis type: unspecified Qualified Code(s): D72.829 - Elevated white blood cell count, unspecified Plan: INVANZ 1G IV DAILY, CONTINUE TO MONITOR (4) E. coli UTI (urinary tract infection) Status: Acute (5) Hypokalemia Status: Acute Plan: POTASSIUM PROTOCOL (6) History of lymphoma Status: Chronic
--- NOTE | 2020-03-07 12:09 | PCM.PROG ---
Progress Note - Progress Note for Day of Date of Exam: 03/07/20 - Subjective Subjective: WAS ADMITTED FOR TREATMENT OF METASTATIC DISEASE, INTRACTABLE DIARRHEA, LEUKOCYTOSIS, UTI. HE HAS A HISTORY OF LYMPHOMA. A COLONOSCOPY WAS PERFORMED YESTERDAY AND REVEALED A LARGE FRIABLE AREA OF THE ASCENDING COLON CONSISTENT WITH NEOPLASM. SEVERAL BIOPSIES WERE TAKEN. TODAY, HE IS ALERT, LYING IN BED ON MORNING ROUNDS. PATIENT CONTINUES WITH COMPLAINTS OF ABDOMINAL PAIN AND WEAKNESS THIS MORNING. HE ALSO REPORTS SHORTNESS OF BREATH. ON EXAMINATION, HEART IS REGULAR IN RATE AND RHYTHM. BILATERAL LUNGS ARE NOTED WITH DIMINISHED LUNG SOUNDS THROUGHOUT. ABDOMEN IS ROUND, SOFT, AND NOTED WITH DIFFUSE TENDERNESS. INCREASED BOWEL SOUNDS NOTED. HIS VITALS THIS MORNING ARE: 97.2-86-18-93%NC-125/89. LABS WERE OBTAINED. ABNORMAL LAB VALUES INCLUDE THE FOLLOWING: WBC 17.3, RBC 4.65, CARBON DIOXIDE 33.0, GLUCOSE 105, CALCIUM 8.2, AST 127, ALT 108, ALK PHOS 411, TOTAL PROTEIN 5.2, ALBUMIN 2.7. STOOL STUDIES ARE POSITIVE FOR OCCULT BLOOD AND WHITE CELLS. URINE CULTURE REVEALS GROWTH OF E.COLI. A CHEST XRAY WAS OBTAINED THIS MORNING AND REVEALED: Cardiomegaly with worsening bilateral interstitial and alveolar infiltrates which could represent worsening congestive heart failure or worsening bilateral pneumonia. Increasing right pleural effusion. HE IS CURRENTLY RECEIVING NS AT 125 ML/HR, INVANZ 1G IV DAILY, LOVENOX 40MG SC DAILY, DEMEROL 25MG IV Q4H PRN, LOMOTIL 1 TAB PO BID, RESTORIL 15MG PO HS PRN, THE POTASSIUM AND MAGNESUM PROTOCOLS, AND ZOFRAN 25MG IV Q4H PRN. TODAY, WE WILL OBTAIN A BNP, D-DIMER, AND ECHO. IF D-DIMER IS ELEVATED, WE WILL OBTAIN A CHEST CTA. WE WILL ALSO ADD FORTAZ 2G IV Q8H AND XOPENEX NEB [place] QID. OTHERWISE, WE WILL CONTINUE WITH CURRENT PLAN OF CARE. WE WILL FOLLOW UP WITH AM LABS AND CONTINUE TO MONITOR. - Past Medical Family Social History Past Med/Fam/Surg Hx: No changes since H&P Allergies: Allergies levofloxacin [From Levaquin] Allergy (Verified 02/26/20 10:52) - Review of Systems ROS: No change since H&P - Vital Signs and I&O's Vital Signs: Temperature 97.2 F Pulse Rate [Bilateral Radial] 86 Pulse Rate 78 Respiratory Rate 18 Blood Pressure [Left Arm] 125/89 Blood Pressure [Right Arm] 133/91 Blood Pressure 118/77 O2 Sat by Pulse Oximetry 93 Intake and Output: Intake & Output 03/05/20 03/06/20 03/07/20 03/08/20 11:59 11:59 11:59 11:59 Intake Total 3087 / 3087 1328 / 1328 840 / 840 Output Total 2800 / 2800 1750 / 1750 900 / 900 Balance 287 / 287 -422 / -422 -60 / -60 - Physical Exam Oriented: Person, Place Eyes: Normal Ear: Normal Nose: Normal Throat: Normal Respiratory: Generalized, Diminished Cardiovascular: Normal : Normal Auscultation: Bowel Sounds: Increased Palpation: Normal Tenderness: Diffuse Skin: Normal Musculoskeletal: Normal Psychiatric: Normal Mood Description: Calm Affect: Normal Speech Pattern: Clear, Appropriate - Laboratory and Diagnostics Result Diagrams: 03/07/20 05:32 03/07/20 05:32 Labs: 02/27/20 19:40 Urine,Clean Catch Urine Culture - Final Escherichia Coli 02/26/20 12:06 Stool Stool Culture - Final 02/26/20 12:06 Stool - Final Laboratory WBC 17.3 X10^3/uL (3.6-10.0) H 03/07/20 05:32 RBC 4.65 X10^6/uL (4.7-6.0) L 03/07/20 05:32 Hgb 13.6 g/dL (13.5-18.0) 03/07/20 05:32 Hct 42.1 % (42.0-54.0) 03/07/20 05:32 MCV 90.4 fL (80.0-100.0) 03/07/20 05:32 MCH 29.3 pg (27.0-34.0) 03/07/20 05:32 MCHC 32.4 g/dL (33.0-35.0) L 03/07/20 05:32 RDW 17.7 % (11.6-16.5) H 03/07/20 05:32 Plt Count 279 X10^3/uL (150.0-450.0) 03/07/20 05:32 Plt Count Comment Adequate (ADEQUATE) 03/04/20 04:30 MPV 5.8 fL (7.4-11.0) L 03/07/20 05:32 Neut % (Auto) 66.5 % (42.0-75.0) 03/07/20 05:32 Lymph % (Auto) 9.1 % (21.0-51.0) L 03/07/20 05:32 [place] % (Auto) 10.2 % (0.0-13.0) 03/07/20 05:32 Eos % (Auto) 13.7 % (0.9-2.9) H 03/07/20 05:32 Baso % (Auto) 0.5 % (0.2-1.0) 03/07/20 05:32 Neut # (Auto) 11.5 x10^3/uL (2.2-4.8) H 03/07/20 05:32 Lymph # (Auto) 1.6 X10^3/uL (1.3-2.9) 03/07/20 05:32 [place] # (Auto) 1.8 x10^3/uL (0.3-0.8) H 03/07/20 05:32 Eos # (Auto) 2.4 x10^3/uL (0.0-0.2) H 03/07/20 05:32 Baso # (Auto) 0.1 X10^3/uL (0.0-0.1) 03/07/20 05:32 Absolute Nucleated RBC 0.0 /100WBC 03/07/20 05:32 Total Counted 100 03/04/20 04:30 Neutrophils % (Manual) 55 % (39-76) 03/04/20 04:30 Band Neutrophils % 1 % (0-10) 02/29/20 04:14 Lymphocytes % (Manual) 16 % (13-43) 03/04/20 04:30 Monocytes % (Manual) 2 % (4-9) L 03/04/20 04:30 Eosinophils % (Manual) 27 % (0-6) H 03/04/20 04:30 Plt Morphology Comment Normal (NORMAL) 03/04/20 04:30 RBC Morphology Normal (NORMAL) 03/04/20 04:30 D-Dimer 3.33 ug/ml (0.0-0.57) H* 03/07/20 10:14 Sodium 138 mmol/L (136-145) 03/07/20 05:32 Corrected Sodium TNP 03/07/20 05:32 Potassium 4.8 mmol/L (3.5-5.1) 03/07/20 05:32 Chloride 101 mmol/L (98-107) 03/07/20 05:32 Carbon Dioxide 33.0 mmol/L (21-32) H 03/07/20 05:32 BUN 14 mg/dL (7-18) 03/07/20 05:32 Creatinine 0.88 mg/dL (0.70-1.30) 03/07/20 05:32 Est GFR (MDRD) Af Amer > 60 (>60) 03/07/20 05:32 Est GFR (MDRD) Non-Af > 60 (>60) 03/07/20 05:32 Glucose 105 mg/dL (65-99) H 03/07/20 05:32 Calcium 8.2 mg/dL (8.5-10.1) L 03/07/20 05:32 Corrected Calcium 9.2 mg/dL (8.5-10.1) 03/07/20 05:32 Magnesium 2.2 mg/dL (1.7-2.9) 03/03/20 04:10 Total Bilirubin 0.60 mg/dL (0.2-1.0) 03/07/20 05:32 AST 127 Units/L (15-37) H 03/07/20 05:32 ALT 108 Units/L (12-78) H 03/07/20 05:32 Alkaline Phosphatase 411 Units/L (46-116) H 03/07/20 05:32 B-Natriuretic Peptide 17.1 pg/mL (0-79) 03/07/20 05:32 Total Protein 5.2 g/dL (6.4-8.2) L 03/07/20 05:32 Albumin 2.7 g/dL (3.4-5.0) L 03/07/20 05:32 Globulin 2.5 g/dL (2.5-4.5) 03/07/20 05:32 Albumin/Globulin Ratio 1.1 Ratio (1.1-2.1) 03/07/20 05:32 Lipase 92 Units/L (73-393) 02/26/20 12:15 Carcinoembryonic Ag 8.5 ng/mL (0.0-3.0) H 02/26/20 12:15 Specimen Type Clean catch urine 02/27/20 19:40 Urine Color Yellow (YELLOW) 02/27/20 19:40 Urine Appearance Clear (CLEAR) 02/27/20 19:40 Urine pH 6.0 (5.0 - 8.0) 02/27/20 19:[address] 1.015 (1.000-1.030) 02/27/20 19:40 Urine Protein 2+ (NEGATIVE) 02/27/20 19:40 Urine Glucose (UA) Negative (NEGATIVE) 02/27/20 19:40 Urine Ketones Negative (NEGATIVE) 02/27/20 19:40 Urine Occult Blood 1+ (NEGATIVE) 02/27/20 19:40 Urine Nitrite Positive (NEGATIVE) 02/27/20 19:40 Urine Bilirubin Negative (NEGATIVE) 02/27/20 19:40 Urine Urobilinogen Normal (NORMAL) 02/27/20 19:40 Ur Leukocyte Esterase 3+ (NEGATIVE) 02/27/20 19:40 Urine RBC 5-10 /HPF (0-3) A 02/27/20 19:40 Urine WBC 30-50 /HPF (0-5) A 02/27/20 19:40 Ur Squamous Epith Cells Negative /HPF (NEGATIVE) 02/27/20 19:40 Urine Bacteria Negative /HPF (NEGATIVE) 02/27/20 19:40 Ur Culture Indicated? Yes/culture set up 02/27/20 19:40 Stool Description 20g liquid brown 02/26/20 12:06 Stl Occult Blood (IFOB) Positive (NEGATIVE) A 02/26/20 12:06 Stool for White Cells Positive (NEGATIVE) A 02/26/20 12:06 Stl C. diff Tox B Gene Negative (NEGATIVE) 02/26/20 12:06 Stl C. diff [id number] Negative (NEGATIVE) 02/26/20 12:06 Tissue Pathology To follow 03/06/20 09:35 - Plan (1) Metastatic disease Status: Acute Qualifiers: Area of secondary neoplastic involvement: unspecified site Qualified Code(s): C79.9 - Secondary malignant neoplasm of unspecified site Plan: NS AT 125 ML/HR,INVANZ 1G IV DAILY, LOVENOX 40MG SC DAILY, DEMEROL 25MG IV Q4H PRN, LOMOTIL 1 TAB QID, AND ZOFRAN 25MG IV Q4H PRN. (2) Intractable diarrhea Status: Acute Plan: INVANZ 1G IV DAILY, CONTINUE TO MONITOR (3) Pneumonia Status: Acute Qualifiers: Pneumonia type: due to unspecified organism Laterality: bilateral Lung location: unspecified part of lung Qualified Code(s): J18.9 - Pneumonia, unspecified organism Plan: FORTAZ 2G IV Q8H, INVANZ 1G IV DAILY, XOPENEX NEB [place] QID (4) E. coli UTI (urinary tract infection) Status: Acute (5) Leukocytosis Status: Acute Qualifiers: Leukocytosis type: unspecified Qualified Code(s): D72.829 - Elevated white blood cell count, unspecified Plan: INVANZ 1G IV DAILY, CONTINUE TO MONITOR (6) Hypokalemia Status: Acute Plan: POTASSIUM PROTOCOL (7) History of lymphoma Status: Chronic
[2020-03-07] MEDS: XOPENEX 1.25 MG/3 ML NEBULE NEB SCH ×3 (13:15→21:12)
--- NOTE | 2020-03-07 13:22 | CT ---
HISTORYSOB, ELEVATED D-DIMERSTUDYCTA CHESTCOMPARISONChest radiograph from same day.TECHNIQUEMultiple axial images of the abdomen and pelvis were obtained from the lung bases to the pubic symphysis after the administration of IV contrast. Dose reduction techniques including Automated Exposure Control (AEC) and adjustment of mA and kV were utilized.FINDINGSDilatation of the ascending thoracic aorta measuring 4.1 cm medial-lateral image 28 series 11. Pulmonary artery is dilated at 39 mm centrally image 41 series 4. No filling defect is identified in the central or proximal segmental pulmonary arteries to suggest embolism. The heart is mildly enlarged. No pericardial effusion. There is pathologic adenopathy in the mediastinum and bilateral erik. For example there is a 2.3 cm short axis right hilar lymph node on image 42 series 4. Left lower paratracheal lymph node measures 1.4 cm short axis image 30 series 4. Lymph node at the left base of neck measuring 1 cm short axis image 9 series 4. There are innumerable low-attenuation liver lesions suspicious for metastasis. Moderate ascites noted in the upper abdomen. There is an indeterminate 1.8 cm right adrenal nodule. Retrocrural adenopathy measuring 1.4 cm image 86 series 4. Moderate right and small left pleural effusions. There scattered bilateral airspace and interstitial opacities. There is atelectasis associated with the effusions. No pneumothorax.IMPRESSIONScattered bilateral airspace opacities suspicious for pneumonia. Metastasis not excluded. Moderate right and small left pleural effusions.Significant mediastinal, hilar, neck and retrocrural adenopathy. These are suspicious for neoplastic involvement/metastasis.Multiple liver masses suspicious for metastasis.Indeterminate 1.7 cm right adrenal nodule.Dilated ascending thoracic aorta.Enlarged pulmonary artery suspicious for pulmonary artery hypertension. No pulmonary embolism identified.Electronically signed by: Moi Bella (Mar 07, 2020 13:21:21)
[2020-03-07] MEDS: DEMEROL INJ IVP PRN (19:45)
[2020-03-07] MEDS: RESTORIL CAP 15 MG PO PRN (23:35)
[2020-03-08] MEDS: NS 1000 ML 1,000 ML IV SCH (03:15)
[2020-03-08] MEDS: ZOFRAN INJ 4 MG VIAL IVP PRN (03:29)
[2020-03-08] MEDS: DEMEROL INJ IVP PRN (03:29)
[2020-03-08 05:25] LABS: BASOPHILS # (AUTO) 0.1 X10^3/uL (0.0-0.1); BASOPHILS % (AUTO) 0.7 % (0.2-1.0); EOSINOPHILS # (AUTO) 2.9 x10^3/uL (0.0-0.2); EOSINOPHILS % (AUTO) 16.1 % (0.9-2.9); HEMATOCRIT 41.2 % (42.0-54.0); HEMOGLOBIN 13.3 g/dL (13.5-18.0); LYMPHOCYTES % (AUTO) 11.1 % (21.0-51.0); MEAN CORPUSCULAR HEMOGLOBIN 29.4 pg (27.0-34.0); MEAN CORPUSCULAR HGB CONC 32.3 g/dL (33.0-35.0); MEAN PLATELET VOLUME 5.6 fL (7.4-11.0); MONOCYTES # (AUTO) 1.9 x10^3/uL (0.3-0.8); MONOCYTES % (AUTO) 10.6 % (0.0-13.0); NEUTROPHILS # (AUTO) 10.9 x10^3/uL (2.2-4.8); NEUTROPHILS % (AUTO) 61.5 % (42.0-75.0); PLATELET COUNT 300 X10^3/uL (150.0-450.0); RED BLOOD COUNT 4.52 X10^6/uL (4.7-6.0); RED CELL DISTRIBUTION WIDTH 17.8 % (11.6-16.5); WHITE BLOOD COUNT 17.8 X10^3/uL (3.6-10.0)
[2020-03-08] MEDS: FORTAZ or TAZICEF VIAL INJ 2 G in NS 100 ML IV + SPIKE MINIBAG* 100 ML IV SCH (05:35)
[2020-03-08 05:39] LABS: ALANINE AMINOTRANSFERASE 106 Units/L (12-78); ALBUMIN 2.6 g/dL (3.4-5.0); ALKALINE PHOSPHATASE 432 Units/L (46-116); ASPARTATE AMINO TRANSFERASE 123 Units/L (15-37); BLOOD UREA NITROGEN 13 mg/dL (7-18); CHLORIDE 102 mmol/L (98-107); COR CA(FOR HYPOALB) 9.1 mg/dL (8.5-10.1); COR NA(FOR HYPERGLY) 140 mmol/L (136-145); CREATININE 0.98 mg/dL (0.70-1.30); SODIUM 140 mmol/L (136-145); TOTAL PROTEIN 5.2 g/dL (6.4-8.2); eGFR NON BLACK RACES > 60 (>60)
[2020-03-08] MEDS: TORADOL 30 MG VIAL IVP PRN (06:36)
--- NOTE | 2020-03-08 07:59 | RAD ---
HISTORYSOBSTUDYCHEST, 1 [id number] view of the chestFINDINGSCardiac silhouette appears borderline in size. Known mediastinal adenopathy. Similar appearance bilateral airspace disease. No large pleural effusion. No pneumothorax.IMPRESSIONNo significant change.Electronically signed by: Moi Bella (Mar 08, 2020 07:57:49)
[2020-03-08 08:45] VITALS: BP 122/79
[2020-03-08] MEDS: XOPENEX 1.25 MG/3 ML NEBULE NEB SCH ×2 (09:10→13:17)
[2020-03-08] MEDS: PEPCID 20 MG IV PREMIX* 20 MG/50 ML BAG IV SCH (09:11)
[2020-03-08] MEDS: INVANZ INJ 1 GM VIAL 1 GM in NS 100 ML IV + SPIKE MINIBAG* 100 ML IV SCH (09:11)
[2020-03-08] MEDS: PROTONIX INJ 40 MG VIAL IVP SCH (09:32)
== END 2020-03-08 12:30 | disposition home health service (06) | DRG 435 ==
LOC: ER 10:47 → MED/SURG 17:21
PROVIDERS: ADMIT Internal Medicine; ATTEND Internal Medicine
DX: R59.1 Generalized enlarged lymph nodes; F79 Unspecified intellectual disabilities; I50.9 Heart failure, unspecified; C78.7 Secondary malignant neoplasm of liver and intrahepatic bile duct; N39.0 Urinary tract infection, site not specified; D72.828 Other elevated white blood cell count; R97.0 Elevated carcinoembryonic antigen [CEA]; C18.9 Malignant neoplasm of colon, unspecified; B96.29 Other Escherichia coli [E. coli] as the cause of diseases classified elsewhere; J18.9 Pneumonia, unspecified organism; E87.6 Hypokalemia; K64.5 Perianal venous thrombosis; R19.7 Diarrhea, unspecified; K92.2 Gastrointestinal hemorrhage, unspecified; E03.8 Other specified hypothyroidism; J90 Pleural effusion, not elsewhere classified; Z85.72 Personal history of non-Hodgkin lymphomas

== ENCOUNTER 2020-03-09 11:38 | Inpatient (IN) ==
[2020-03-09] MEDS ORDERED: NS 1000 ML 1,000 ML ONE (11:55)
[2020-03-09 11:57] LABS: ABG ALLEN TEST POS; ABG HCO3 33.7 mmol/L (22-26)
--- NOTE | 2020-03-09 12:00 | DR.DIZZY ---
HPI - Time seen Time seen: 12:00 - Complaint Chief Complaint Doctor Comments: Patient recently discharged from the hospital with diarrhea and rectal bleeding with diagnostic workup revealing colon lesion with metasis with patient Stage IV colon cancer. EMS states visiting nurse was there today when his O2 sat dropped to 55 -50%. EMS states when they got there his O2 sat was 60 - 65% with wheezing and they placed him on 3 liters oxygen and his O2 Sat went to 94 -95% with low blood pressure. Patient lives with his sister and denies chest pain. Patient blood pressure 89/56 was placed in trendelenburg. Patient on ventimask at 50% with O2 sat 88%. - COVID-19 Coronavirus risk:travel/contact w/high risk person: No Has patient experienced Coronavirus symptoms: No Coronavirus symptoms experienced: Shortness of Breath - Nurses Notes Reviewed Nurses Notes Review: Yes - Source History Provided: Patient, Family Member, EMS - Mode of Arrival Mode of Arrival: EMS - Timing Came on: Suddenly - Duration Duration: Constant How lon Duration: Hours - Location of Weakness Weakness Location: Generalized - Context Onset: At rest Does pt take pot. toxic medication?: No History of: Anemia, GI Bleed Stroke Symptoms: None - Severity Severity: Normal activity level - Modifying factors Worsens: Nothing - Associated signs and symptoms Associated Signs and Symptoms: Weak, GI Bleed PMH - PMH Past Medical History: Hypothyroidism Past Surgical History: Yes Surgical History: Appendectomy, Cholecystectomy, Ortho Surgery, Other - Family History Family Medical History: Heart Failure - Social History Do you use any recreational Drugs:: No ROS - Review of Systems Constitutional: No Symptoms Reported, Weakness Eyes: No Symptoms Reported ENTM: No Symptoms Reported Respiratoy: No Symptoms Reported, Short of Breath, Wheezing Cardiovascular: No Symptoms Reported Gastrointestinal/Abdominal: No Symptoms Reported Genitourinary: No Symptoms Reported Neurological: No Symptoms Reported, Weakness Musculoskeletal: No Symptoms Reported Integumentary: No Symptoms Reported Hematologic/Lymphatic: No Symptoms Reported Endocrine: No Symptoms Reported Psychiatric: No Symptoms Reported. negative: See HPI, Anxiety, Depression, Otto lucinations, Excessive crying, Suicidal, Other PE - General Limitations: No Limitations General Appearance: Alert, In Distress (moderate) - Head Head Exam: Normal Inspection, Atraumatic, Normocephalic - Eyes Eye exam: Normal Appearance, PERRL, EOMI. negative: Scleral Icterus, Conjunctival Injection, Nystagmus, Miosis, Mydrasis, Periorbital Swelling, Periorbital Tenderness, Other Pupils: Regular, Round: Bilateral Sclera/Conjunctival: Normal Inspection: Bilateral Anterior Chamber: Normal Inspection: Bilateral Posterior Chamber: Deferred: Bilateral - ENT ENT Exam: Normal Exam, Normal Oropharynx, Normal External Ear Exam, Mucous Membranes Moist, TM's Normal Bilaterally - Neck Neck Exam: Normal Inspection, Full ROM, Trachea Midline - Chest Chest Inspection: Normal Inspection, Symmetric Chest Wall Rise - Respiratory Respiratory Exam: Other (right basilar rales) Respiratory Exam: Right Rales, Lower Rales - Cardiovascular Cardiovascular Exam: Regular Rate, Normal Rhythm, Tachycardia, Normal Heart Sounds, Systolic Murmur - Abdominal Exam Abdominal Exam: Normal Inspection, Normal Bowel Sounds, Soft, Distention - Rectal Rectal Exam: Deferred - Extremeties Extremities Exam: Normal Inspection, Full ROM, Normal Capillary Refill. negative: Tenderness, Edema, Joint Swelling, Calf Tenderness, Other - Back Back Exam: Normal Inspection, Full ROM. negative: Tenderness, (R) CVA Tenderness, (L) CVA Tenderness, Muscle Spasm, Paraspinal Tenderness, Vertebral Tenderness, Rashes, (R) Sciatic Notch Tenderness, (L) Sciatic Notch Tendern, (R) Straight Leg Raise, (L) Straight Leg Raise, Other - Neurologic Neurological Exam: Alert, Oriented X3, CN II-XII Intact, Reflexes Normal. negative: Normal Gait (gait not tested) Patient Oriented To: Person, Place Speech: Fluid Speech Cranial Nerve Exam: EOM Function (II, III, IV, ): Normal, Facial Sensation (V): Normal, Facial Palsy (VII): Normal, Gag reflex (XI): Normal, Tongue Deviation: Normal Cerebellar Function: negative: Normal Gait (gait not tested) Motor Strength - LUE: 5/5 Motor Strength - RUE: 5/5 Motor Strength - LLE: 5/5 Motor Strength - RLE: 5/5 Upper Motor Neuron Exam: Babinski Sign: Normal Sensory Exam Upper Extremity: Light Touch: Normal Sensory Exam Lower Extremity: Light Touch: Normal DTR: bicep (L): 2+, bicep (R): 2+, Patellar (L): 2+, patellar (R): 2+ - Psychiatric Psychiatric Exam: Normal Affect, Normal Mood. negative: Depressed, Homicidal Ideation, Suicidal Ideation - Skin Skin Exam: Warm, Dry, Intact, Normal Color. negative: Rash, Cyanosis, Diaphoresis, Erythema, Pallor, Mottled, Other - Vital Signs Vitals: Temperature 96.6 F Pulse Rate 93 Respiratory Rate 22 Blood Pressure [Left Arm] 122/79 Blood Pressure 89/59 O2 Sat by Pulse Oximetry 92 Course - Reevaluation 1st: Improved - Consultation Called: 14:19 Call Returned: 14:19 (Dr. Chamberlain to admit) - Education/Counseling Education/Counseling: Patient, Family Educated On: Treatment, Diagnosis, Prognosis, Needs for Follow Up ROR - Labs Reviewed Laboratory Results Reviewed?: Yes (All labs and x-ray results reviewed and discussed with patient and family ) Result Diagrams: 03/09/20 12:00 03/09/20 12:00 - XRAY XRAY Interpreted by: Radiologist (CXR: Findings consistent with moderate to severe CHF or volume overload. DDX includes bronchitis and interstitial pneumo kaleigh in appropriate clinical setting.) - EKG Rate: 100 Rhythm: ST Block: None Hypertrophy: None ST: Nonsp - Labs Reviewed Laboratory: WBC 23.8 X10^3/uL (3.6-10.0) H 03/09/20 12:00 RBC 4.69 X10^6/uL (4.7-6.0) L 03/09/20 12:00 Hgb 13.9 g/dL (13.5-18.0) 03/09/20 12:00 Hct 43.6 % (42.0-54.0) 03/09/20 12:00 MCV 93.0 fL (80.0-100.0) 03/09/20 12:00 MCH 29.7 pg (27.0-34.0) 03/09/20 12:00 MCHC 31.9 g/dL (33.0-35.0) L 03/09/20 12:00 RDW 18.3 % (11.6-16.5) H 03/09/20 12:00 Plt Count 366 X10^3/uL (150.0-450.0) 03/09/20 12:00 Plt Count Comment Adequate (ADEQUATE) 03/09/20 12:00 MPV 6.1 fL (7.4-11.0) L 03/09/20 12:00 Neut % (Auto) 80.1 % (42.0-75.0) H 03/09/20 12:00 Lymph % (Auto) 9.2 % (21.0-51.0) L 03/09/20 12:00 Gordon % (Auto) 9.8 % (0.0-13.0) 03/09/20 12:00 Eos % (Auto) 0.4 % (0.9-2.9) L 03/09/20 12:00 Baso % (Auto) 0.5 % (0.2-1.0) 03/09/20 12:00 Neut # (Auto) 19.0 x10^3/uL (2.2-4.8) H 03/09/20 12:00 Lymph # (Auto) 2.2 X10^3/uL (1.3-2.9) 03/09/20 12:00 Gordon # (Auto) 2.3 x10^3/uL (0.3-0.8) H 03/09/20 12:00 Eos # (Auto) 0.1 x10^3/uL (0.0-0.2) 03/09/20 12:00 Baso # (Auto) 0.1 X10^3/uL (0.0-0.1) 03/09/20 12:00 Absolute Nucleated RBC 0.0 /100WBC 03/09/20 12:00 Total Counted 100 03/09/20 12:00 Neutrophils % (Manual) 70 % (39-76) 03/09/20 12:00 Band Neutrophils % 10 % (0-10) 03/09/20 12:00 Lymphocytes % (Manual) 12 % (13-43) L 03/09/20 12:00 Monocytes % (Manual) 7 % (4-9) 03/09/20 12:00 Eosinophils % (Manual) 1 % (0-6) 03/09/20 12:00 Plt Morphology Comment Normal (NORMAL) 03/09/20 12:00 RBC Morphology Normal (NORMAL) 03/09/20 12:00 PT 14.0 SECONDS (11.8-14.3) 03/09/20 12:00 INR Target Range - 03/09/20 12:00 INR 1.12 (0.8-1.3) 03/09/20 12:00 APTT 29.7 SECONDS (22.9-36.5) 03/09/20 12:00 PTT Comment - 03/09/20 12:00 D-Dimer 3.86 ug/ml (0.0-0.57) H* 03/09/20 12:00 Sample Site Lrad 03/09/20 13:03 ABG pH 7.250 (7.35-7.45) L 03/09/20 13:03 ABG pCO2 78.0 mmHg (35.0-45.0) H* 03/09/20 13:03 ABG pO2 201.0 mmHg (80.0-100.0) H 03/09/20 13:03 ABG HCO3 34.2 mmol/L (22-26) H* 03/09/20 13:03 ABG O2 Saturation 100.0 % (90-100) 03/09/20 13:03 ABG Base Excess 4.6 mmol/L (-2.0-2.0) H 03/09/20 13:03 Adolph Test Pos 03/09/20 13:03 A-a Gradient 415.0 mmHg 03/09/20 13:03 FiO2 100.0 03/09/20 13:03 Blood Gas Comments Pt love well elj cdn 03/09/20 13:03 Sodium 140 mmol/L (136-145) 03/09/20 12:00 Corrected Sodium 141 mmol/L (136-145) 03/09/20 12:00 Potassium 4.9 mmol/L (3.5-5.1) 03/09/20 12:00 Chloride 101 mmol/L (98-107) 03/09/20 12:00 Carbon Dioxide 32.5 mmol/L (21-32) H 03/09/20 12:00 BUN 19 mg/dL (7-18) H 03/09/20 12:00 Creatinine 1.63 mg/dL (0.70-1.30) H 03/09/20 12:00 Est GFR (MDRD) Af Amer 56 (>60) L 03/09/20 12:00 Est GFR (MDRD) Non-Af 46 (>60) L 03/09/20 12:00 Glucose 148 mg/dL (65-99) H 03/09/20 12:00 Calcium 8.8 mg/dL (8.5-10.1) 03/09/20 12:00 Corrected Calcium 9.4 mg/dL (8.5-10.1) 03/09/20 12:00 Magnesium 2.3 mg/dL (1.7-2.9) 03/09/20 12:00 Total Bilirubin 0.80 mg/dL (0.2-1.0) 03/09/20 12:00 AST 138 Units/L (15-37) H 03/09/20 12:00 ALT 121 Units/L (12-78) H 03/09/20 12:00 Alkaline Phosphatase 518 Units/L (46-116) H 03/09/20 12:00 Creatine Kinase 81 Units/L (39-308) 03/09/20 12:00 CK-MB (CK-2) 2.8 ng/mL (0-4.0) 03/09/20 12:00 CK/CKMB % Calc 3.5 % (<4) 03/09/20 12:00 Troponin I 0.45 ng/mL (0-1.5) 03/09/20 12:00 B-Natriuretic Peptide 242 pg/mL (0-79) H 03/09/20 12:00 Total Protein 6.0 g/dL (6.4-8.2) L 03/09/20 12:00 Albumin 3.2 g/dL (3.4-5.0) L 03/09/20 12:00 Globulin 2.8 g/dL (2.5-4.5) 03/09/20 12:00 Albumin/Globulin Ratio 1.1 Ratio (1.1-2.1) 03/09/20 12:00 Stool Description Ifob 03/09/20 11:55 Stl Occult Blood (IFOB) Positive (NEGATIVE) A 03/09/20 11:55 - XRAY Xray Findings: Chest CTA: Scattered bilateral airspace opacities suspicious for pneumonia. Metastasis not excluded. Moderate right and small left pleural effusions. Multiple liver masses suspicious for metastasis. Dilated ascending thoracic aorta. No pulmonary embolism identified. Enlarged pulmonary artery suspicious for pulmonary artery hypertension. ([place]) Opioid - Opioid Risk Tool Age (Sreekanth box if 16-45): No History of Preadolescent Sexual Abuse: No Total: 0 Total Score Risk Category: Low Risk - Diagnosis Discharge Problem: Colon cancer metastasized to liver, History of pneumonia Acute respiratory failure Qualifiers: Respiratory failure complication: hypoxia and hypercapnia Qualified Code(s): J96.01 - Acute respiratory failure with hypoxia; J96.02 - Acute respiratory failure with hypercapnia Congestive heart failure (CHF) Qualifiers: Heart failure type: unspecified Hypotension Qualifiers: Hypotension type: unspecified hypotension type Qualified Code(s): I95.9 - Hypotension, unspecified Chronic kidney disease (CKD) Qualifiers: Chronic kidney disease stage: stage 3 (moderate) GI (gastrointestinal bleed) Qualifiers: Gastritis type: unspecified gastritis - Discharge Plan Disposition: ADMITTED INPATIENT Condition: Stable - Follow ups/Referrals Follow ups/Referrals: STACY GAMBINO [Primary Care Provider] - 3 days - Instructions
[2020-03-09] MEDS ORDERED: DUONEB 0.5 MG/3 MG (3 mL) NEB ONE ×2 (12:01→14:01)
[2020-03-09 12:12] VITALS: BMI 27.2
[2020-03-09] MEDS: NS 1000 ML 1,000 ML IV SCH ×2 (12:14→18:53)
--- NOTE | 2020-03-09 12:21 | RAD ---
EXAM: CHEST X-RAYHISTORY: Chest pain.TECHNIQUE: AP chest x-ray dated 03/09/2020 at the 12:03 PM.COMPARISON: None.FINDINGS:There is severe aortic atherosclerosis. There is evidence for cardiomegaly. The pulmonary vascularity and interstitial markings are diffusely prominent, consistent with moderate to severe CHF or volume overload in the appropriate clinical setting; differential diagnosis includes (but is not limited to) mild bronchitis and interstitial pneumonia in the appropriate clinical setting. There is no gross focal lung consolidation, pleural effusion, or pneumothorax seen. The visualized bony structures are within normal limits. Surgical clips are seen in the right axillary region in keeping with prior lymph node dissection.IMPRESSION:1. Findings consistent with moderate to severe CHF or volume overload in the appropriate clinical setting; DDX includes (but is not limited to) mild bronchitis and interstitial pneumonia in the appropriate clinical setting. Recommend clinical correlation and appropriate follow evaluation to ensure interval clearance as clinically warranted.Electronically signed by: Shiela Matthew (Mar 09, 2020 12:20:07)
[2020-03-09 12:25] LABS: BASOPHILS # (AUTO) 0.1 X10^3/uL (0.0-0.1); BASOPHILS % (AUTO) 0.5 % (0.2-1.0); EOSINOPHILS # (AUTO) 0.1 x10^3/uL (0.0-0.2); EOSINOPHILS % (AUTO) 0.4 % (0.9-2.9); HEMATOCRIT 43.6 % (42.0-54.0); HEMOGLOBIN 13.9 g/dL (13.5-18.0); LYMPHOCYTES # (AUTO) 2.2 X10^3/uL (1.3-2.9); LYMPHOCYTES % (AUTO) 9.2 % (21.0-51.0); MEAN CORPUSCULAR HEMOGLOBIN 29.7 pg (27.0-34.0); MEAN CORPUSCULAR HGB CONC 31.9 g/dL (33.0-35.0); MEAN PLATELET VOLUME 6.1 fL (7.4-11.0); MONOCYTES # (AUTO) 2.3 x10^3/uL (0.3-0.8); MONOCYTES % (AUTO) 9.8 % (0.0-13.0); NEUTROPHILS % (AUTO) 80.1 % (42.0-75.0); PLATELET COUNT 366 X10^3/uL (150.0-450.0); RED BLOOD COUNT 4.69 X10^6/uL (4.7-6.0); RED CELL DISTRIBUTION WIDTH 18.3 % (11.6-16.5); WHITE BLOOD COUNT 23.8 X10^3/uL (3.6-10.0)
[2020-03-09 12:32] LABS: CALCIUM 8.8 mg/dL (8.5-10.1); CARBON DIOXIDE 32.5 mmol/L (21-32); CREATININE 1.63 mg/dL (0.70-1.30); TROPONIN I 0.45 ng/mL (0-1.5)
[2020-03-09 12:35] LABS: BAND NEUTROPHILS % 10 % (0-10)
[2020-03-09 12:36] LABS: ALBUMIN 3.2 g/dL (3.4-5.0); CKMB % 3.5 % (<4); COR CA(FOR HYPOALB) 9.4 mg/dL (8.5-10.1); CREATINE KINASE MB 2.8 ng/mL (0-4.0); MAGNESIUM 2.3 mg/dL (1.7-2.9); PLATELET MORPHOLOGY COMMENT NORMAL (NORMAL)
[2020-03-09 13:11] LABS: ABG BASE EXCESS 4.6 mmol/L (-2.0-2.0)
[2020-03-09 13:12] LABS: ABG ALLEN TEST POS; ABG HCO3 34.2 mmol/L (22-26)
[2020-03-09] MEDS ORDERED: DOPAMINE IV PREMIX 400 MG/250 ML 400 MG/250 ML BAG IV ONE (14:03)
[2020-03-09] MEDS: DOPAMINE IV PREMIX 400 MG/250 ML 400 MG/250 ML BAG IV PRN ×3 (14:18→22:37)
[2020-03-09] MEDS ORDERED: ROCEPHIN 1 GRAM IV PREMIX 1 G/50 ML IV.SOLN. IV ONE (14:24)
[2020-03-09] MEDS ORDERED: ROCEPHIN VIAL 1 GRAM 1 G in NS 100 ML IV + SPIKE MINIBAG* 100 ML IV ONE (14:31)
[2020-03-09] MEDS ORDERED: ROCEPHIN VIAL 1 GRAM ONE (14:32)
[2020-03-09] MEDS ORDERED: NS 50 ML IV + SPIKE MINIBAG* 50 ML IV ONE (14:33)
[2020-03-09] MEDS: FORTAZ or TAZICEF VIAL INJ 1 G in NS 100 ML IV + SPIKE MINIBAG* 100 ML IV SCH ×2 (19:00→22:39)
[2020-03-09] MEDS ORDERED: NS 500 ML IV 500 ML IV ONE (19:01)
[2020-03-09 20:30] LABS: ALANINE AMINOTRANSFERASE 134 Units/L (12-78); ALBUMIN 2.8 g/dL (3.4-5.0); ALKALINE PHOSPHATASE 458 Units/L (46-116); ASPARTATE AMINO TRANSFERASE 214 Units/L (15-37); BLOOD UREA NITROGEN 20 mg/dL (7-18); CALCIUM 8.4 mg/dL (8.5-10.1); CHLORIDE 104 mmol/L (98-107); COR CA(FOR HYPOALB) 9.4 mg/dL (8.5-10.1); COR NA(FOR HYPERGLY) 143 mmol/L (136-145); CREATININE 1.33 mg/dL (0.70-1.30); SODIUM 142 mmol/L (136-145); TOTAL PROTEIN 5.4 g/dL (6.4-8.2); eGFR NON BLACK RACES 59 (>60)
[2020-03-10] MEDS: NS 1000 ML 1,000 ML IV SCH ×4 (02:27→16:54)
[2020-03-10 05:00] LABS: ABG BASE EXCESS 4.6 mmol/L (-2.0-2.0)
[2020-03-10 05:01] LABS: ABG ALLEN TEST POS; ABG HCO3 33.4 mmol/L (22-26)
[2020-03-10] MEDS: FORTAZ or TAZICEF VIAL INJ 1 G in NS 100 ML IV + SPIKE MINIBAG* 100 ML IV SCH ×3 (05:45→21:04)
[2020-03-10 06:08] LABS: BASOPHILS # (AUTO) 0.1 X10^3/uL (0.0-0.1); BASOPHILS % (AUTO) 0.7 % (0.2-1.0); EOSINOPHILS # (AUTO) 0.6 x10^3/uL (0.0-0.2); EOSINOPHILS % (AUTO) 3.3 % (0.9-2.9); HEMATOCRIT 43.4 % (42.0-54.0); HEMOGLOBIN 13.9 g/dL (13.5-18.0); LYMPHOCYTES # (AUTO) 2.1 X10^3/uL (1.3-2.9); MEAN CORPUSCULAR HEMOGLOBIN 29.6 pg (27.0-34.0); MEAN CORPUSCULAR HGB CONC 31.9 g/dL (33.0-35.0); MEAN CORPUSCULAR VOLUME 92.8 fL (80.0-100.0); MEAN PLATELET VOLUME 5.8 fL (7.4-11.0); MONOCYTES # (AUTO) 2.1 x10^3/uL (0.3-0.8); MONOCYTES % (AUTO) 11.3 % (0.0-13.0); NEUTROPHILS % (AUTO) 73.7 % (42.0-75.0); PLATELET COUNT 352 X10^3/uL (150.0-450.0); RED BLOOD COUNT 4.68 X10^6/uL (4.7-6.0); RED CELL DISTRIBUTION WIDTH 18.4 % (11.6-16.5)
--- NOTE | 2020-03-10 06:18 | RAD ---
CHEST, 1 VIEWHISTORY: SOBStudy: Single view of the chest.Comparison:NoneFindings:Cardiomegaly. No change in the appearance of bilateral insterstitial and airspace opacities. No change in positioning of cardiopulmonary support devices. Osseous structures demonstrate no acute abnormality.IMPRESSION:1. No change from prior.Electronically signed by: WON LORENZO (Mar 10, 2020 06:15:58)
[2020-03-10 06:23] LABS: ALANINE AMINOTRANSFERASE 145 Units/L (12-78); ALBUMIN 2.7 g/dL (3.4-5.0); ALKALINE PHOSPHATASE 498 Units/L (46-116); ASPARTATE AMINO TRANSFERASE 220 Units/L (15-37); BLOOD UREA NITROGEN 18 mg/dL (7-18); CALCIUM 8.3 mg/dL (8.5-10.1); CARBON DIOXIDE 29.6 mmol/L (21-32); CHLORIDE 106 mmol/L (98-107); COR CA(FOR HYPOALB) 9.3 mg/dL (8.5-10.1); COR NA(FOR HYPERGLY) 144 mmol/L (136-145); CREATININE 1.22 mg/dL (0.70-1.30); SODIUM 143 mmol/L (136-145); TOTAL PROTEIN 5.6 g/dL (6.4-8.2); eGFR NON BLACK RACES > 60 (>60)
[2020-03-10] MEDS: DOPAMINE IV PREMIX 400 MG/250 ML 400 MG/250 ML BAG IV PRN ×2 (06:40→15:30)
[2020-03-10] MEDS ORDERED: TYLENOL 325 MG TAB PO ONE (16:45)
[2020-03-10] MEDS: TYLENOL 325 MG TAB PO PRN (16:53)
[2020-03-11] MEDS: TYLENOL 325 MG TAB PO PRN ×3 (00:41→15:43)
[2020-03-11] MEDS: NS 1000 ML 1,000 ML IV SCH ×2 (00:56→21:17)
[2020-03-11] MEDS ORDERED: DOPAMINE IV PREMIX 400 MG/250 ML 400 MG/250 ML BAG IV ONE (05:05)
[2020-03-11 05:34] LABS: ABG BASE EXCESS 2.7 mmol/L (-2.0-2.0)
[2020-03-11 05:35] LABS: ABG HCO3 34.2 mmol/L (22-26)
[2020-03-11 05:36] LABS: ABG ALLEN TEST POS
--- NOTE | 2020-03-11 06:09 | RAD ---
HISTORYShortness of breathSTUDYChest AP [id number]/08/2020FINDINGSThe heart remains enlarged. The aorta is calcified. Bilateral interstitial and alveolar infiltrates are present slightly improved when compared to the prior examination. Right pleural effusion is present. Widening of the upper mediastinum is likely due to the patient's known mediastinal adenopathy. Bony thorax is unremarkable.IMPRESSIONNo change cardiomegalyBilateral interstitial and alveolar infiltrates slightly improvedRight pleural effusionWidening of the upper mediastinum likely due to the patient's known adenopathy.Electronically signed by: ISABELL JEFFERSON (Mar 11, 2020 06:07:00)
[2020-03-11 06:22] LABS: BASOPHILS # (AUTO) 0.1 X10^3/uL (0.0-0.1); BASOPHILS % (AUTO) 0.7 % (0.2-1.0); EOSINOPHILS # (AUTO) 0.1 x10^3/uL (0.0-0.2); EOSINOPHILS % (AUTO) 0.4 % (0.9-2.9); HEMATOCRIT 42.4 % (42.0-54.0); HEMOGLOBIN 13.5 g/dL (13.5-18.0); LYMPHOCYTES # (AUTO) 1.5 X10^3/uL (1.3-2.9); LYMPHOCYTES % (AUTO) 7.3 % (21.0-51.0); MEAN CORPUSCULAR HEMOGLOBIN 29.8 pg (27.0-34.0); MEAN CORPUSCULAR HGB CONC 31.8 g/dL (33.0-35.0); MEAN CORPUSCULAR VOLUME 93.7 fL (80.0-100.0); MEAN PLATELET VOLUME 5.7 fL (7.4-11.0); MONOCYTES # (AUTO) 2.3 x10^3/uL (0.3-0.8); MONOCYTES % (AUTO) 10.9 % (0.0-13.0); NEUTROPHILS % (AUTO) 80.7 % (42.0-75.0); PLATELET COUNT 378 X10^3/uL (150.0-450.0); RED BLOOD COUNT 4.52 X10^6/uL (4.7-6.0); RED CELL DISTRIBUTION WIDTH 18.4 % (11.6-16.5); WHITE BLOOD COUNT 21.1 X10^3/uL (3.6-10.0)
[2020-03-11 06:47] LABS: ALANINE AMINOTRANSFERASE 138 Units/L (12-78); ALBUMIN 2.8 g/dL (3.4-5.0); ALKALINE PHOSPHATASE 520 Units/L (46-116); ASPARTATE AMINO TRANSFERASE 139 Units/L (15-37); BLOOD UREA NITROGEN 18 mg/dL (7-18); CALCIUM 8.4 mg/dL (8.5-10.1); CHLORIDE 107 mmol/L (98-107); COR CA(FOR HYPOALB) 9.4 mg/dL (8.5-10.1); COR NA(FOR HYPERGLY) 145 mmol/L (136-145); CREATININE 1.11 mg/dL (0.70-1.30); SODIUM 144 mmol/L (136-145); TOTAL PROTEIN 5.7 g/dL (6.4-8.2); eGFR NON BLACK RACES > 60 (>60)
[2020-03-11 07:08] LABS: PLATELET MORPHOLOGY COMMENT NORMAL (NORMAL)
[2020-03-11] MEDS: DOPAMINE IV PREMIX 400 MG/250 ML 400 MG/250 ML BAG IV PRN ×2 (07:30→23:15)
--- NOTE | 2020-03-11 10:34 | DR.UPDATE ---
H&P Update History and Physical Update: History and Physical reviewed and patient examined. Changes noted: Yes with the following: WAS DISCHARGED FROM THE HOSPITAL ON 03/08/20 FOLLOWING TREATMENT FOR NEWLY DIAGNOSED COLON CANCER WITH METS TO THE LIVER, CECUM, AND POSSIBLY NECK/HILAR AREA. HE WAS ALSO BEING TREATED FOR PNEUMONIA AND A URINARY TRACT INFECTION. BIPOSIES FROM COLONOSCOPY ARE PENDING. HE RETURNED TO THE ER ON 03/09/20 WITH REPORTS OF LOW OXYGEN SATURATIONS, WHEEZING, SHORTNESS OF BREATH, AND LOW BLOOD PRESSURE. EMS REPORTED THAT ON ARRIVAL TO SCENE, PATIENTS OXYGEN SATURATIONS WERE 50-55% ON ROOM AIR. HE WAS PLACED ON NASAL CANNULA AT 3 LITERS PER MINUTE. OXYGEN SATURATIONS REMAINED IN THE LOW 80s. HIS BLOOD PRESSURE WAS NOTED TO BE 89/56 WHEN CHECKED BY EMS. PATIENT IS MR AND IS CARED FOR BY HIS FAMILY MEMBERS AT HOME. ON ARRIVAL TO THE ER, VITALS WERE 96.6-101-22-84%NC-89/69. HE WAS PLACED ON A VENTI-MASK AT 50%. OXYGEN SATURATIONS INCREASED TO 88%. LABS WERE OBTAINED ON ARRIVAL. ABNORMAL LAB VALUES INCLUDE THE FOLLOWING: WBC 23.8, RBC 4.69, D-DIMER 3.86, CARBON DIOXIDE 32.5, BUN 19, CREATININE 1.63, GLUCOSE 148, AST 138, ALT 121, ALK PHOS 518, BNP 242, TOTAL PROTEIN 6.0, ALBUMIN 3.2. BLOOD CULTURES WERE SET UP. STOOL POSITIVE FOR OCCULT BLOOD. COVID-19 NEGATIVE. AN EKG WAS OBTAINED AND REVEALED SINUS RHYTHM WITH HR 100. A CHEST XRAY WAS OBTAINED AND REVEALED: Findings consistent with moderate to severe CHF or volume overload in the appropriate clinical setting; DDX includes (but is not limited to) mild bronchitis and interstitial pneumonia in the appropriate clinical setting. Recommend clinical correlation and appropriate follow evaluation to ensure interval clearance as clinically warranted. HE WAS PLACED ON BIPAP WHILE IN THE ER. OXYGEN SATURATIONS INCREASED TO 97%. HE WAS GIVEN A DUONEB, ROCEPHIN 1G IV X 1, AND STARTED ON A DOPAMINE DRIP WHILE IN THE ER. BLOOD PRESSURE REMAINED 90s/50s. HE WAS ADMITTED TO THE HOSPITAL FOR FURTHER EVALUATION AND TREATMENT OF PNEUMONIA, ACUTE RESPIRATORY FAILURE, HYPOTENSION, AND METASTATIC DISEASE. HE WAS STARTED ON NS AT 150 ML/HR, FORTAZ 1G IV Q8H, LOVENOX 40MG SC DAILY, XOPENEX NEBS TID, AND A DOPAMINE DRIP. OTHERWISE, WE PLAN TO FOLLOW UP WITH AM LABS AND CONTINUE TO MONITOR. Prescription drug monitoring program results: PDMP reviewed and no concerns identified H&P Reviewed: Yes Patient was examined?: Yes
[2020-03-11] MEDS: XOPENEX 1.25 MG/3 ML NEBULE NEB SCH ×3 (10:39→21:16)
[2020-03-11] MEDS: ZOSYN VIAL 3.375 GRAMS 3.375 G in NS 100 ML IV + SPIKE MINIBAG* 100 ML IV SCH ×3 (10:55→21:17)
[2020-03-11] MEDS: LOVENOX INJ 40 MG SYR SC SCH (10:55)
[2020-03-11] MEDS ORDERED: LOMOTIL PO PRN (11:22)
[2020-03-11] MEDS ORDERED: BENTYL CAP 10 MG PO PRN (11:22)
[2020-03-11] MEDS: FORTAZ or TAZICEF VIAL INJ 1 G in NS 100 ML IV + SPIKE MINIBAG* 100 ML IV SCH ×2 (13:31→21:17)
[2020-03-11] MEDS: SYNTHROID 150 mcg TAB PO SCH (15:22)
[2020-03-11] MEDS ORDERED: ZOFRAN INJ 4 MG VIAL IVP PRN (16:59)
[2020-03-11] MEDS ORDERED: DEMEROL INJ ONE (17:03)
[2020-03-11] MEDS: DEMEROL INJ IVP PRN (17:05)
--- NOTE | 2020-03-11 21:15 | PCM.PROG ---
Progress Note - Progress Note for Day of Date of Exam: 03/11/20 - Subjective Subjective: WAS ADMITTED FOR TREATMENT OF PNEUMONIA, RESPIRATORY FAILURE, AND METASTATIC DISEASE. BIOPSIES FROM COLONOSCOPY LAST WEEK ARE PENDING. TODAY, HE IS ALERT, LYING IN BED ON MORNING ROUNDS. PATIENT CONTINUES WITH COMPLAINTS OF SHORTNESS OF BREATH THIS MORNING. PATIENTS SISTER REPORTS THAT HE APPEARS TO BE BREATHING EASIER THIS MORNING. ON EXAMINATION, HEART IS REGULAR IN RATE AND RHYTHM. BILATERAL LUNGS ARE NOTED WITH SCATTERED WHEEZING THROUGHOUT. ABDOMEN IS ROUND, SOFT, AND NOTED WITH DIFFUSE TENDERNESS. NORMAL BOWEL SOUNDS NOTED IN ALL QUADRANTS. HIS VITALS THIS MORNING ARE: 96.9-82-20-94%BIPAP-94/68. LABS WERE OBTAINED. ABNORMAL LAB VALUES INCLUDE THE FOLLOWING: WBC 21.1, RBC 4.52, GLUCOSE 123, CALCIUM 8.4, AST 139, ALT 138, ALK PHOS 520, TOTAL PROTEIN 5.7, ALBUMIN 2.8. BLOOD CULTURES ARE PENDING. A CHEST XRAY WAS OBTAINED THIS MORNING AND REVEALED: No change cardiomegaly. Bilateral interstitial and alveolar infiltrates slightly improved. Right pleural effusion. Widening of the upper mediastinum likely due to the patient's known adenopathy. HE IS CURRENTLY RECEIVING NS AT 150 ML/HR, FORTAZ 1G IV Q8H, LOVENOX 40MG SC DAILY, XOPENEX NEBS TID, AND A DOPAMINE DRIP. TODAY, WE WILL DECREASE IV FLUIDS TO 50 ML/HR AND ADD ZOSYN 3.375G IV TID. WE WILL RESUME HIS HOME MEDICATIONS. OTHERWISE, WE WILL CONTINUE WITH CURRENT PLAN OF CARE. WE WILL FOLLOW UP WITH AM LABS AND CHEST XRAY AND CONTINUE TO MONITOR. - Past Medical Family Social History Past Med/Fam/Surg Hx: No changes since H&P Allergies: Allergies levofloxacin [From Levaquin] Allergy (Verified 03/09/20 12:44) - Review of Systems ROS: No change since H&P - Vital Signs and I&O's Vital Signs: Temperature 97.7 F Pulse Rate [Left Radial] 86 Pulse Rate 83 Respiratory Rate 20 Blood Pressure [Left Arm] 96/60 Blood Pressure 100/60 O2 Sat by Pulse Oximetry 94 Intake and Output: Intake & Output 03/09/20 03/10/20 03/11/20 03/12/20 11:59 11:59 11:59 11:59 Intake Total 3735 / 3735 3950 / 3950 1258 / 1258 Output Total 0 / 0 Balance 3735 / 3735 3950 / 3950 1258 / 1258 - Physical Exam Oriented: Normal Eyes: Normal Ear: Normal Nose: Normal Throat: Normal Respiratory: Generalized, Diminished, Wheezes Cardiovascular: Normal : Normal Auscultation: Bowel Sounds: Normal Palpation: Normal Tenderness: Diffuse, Mild Skin: Normal Musculoskeletal: Normal Psychiatric: Normal Mood Description: Calm Affect: Normal Speech Pattern: Clear, Appropriate - Laboratory and Diagnostics Result Diagrams: 03/11/20 05:53 03/11/20 05:53 Labs: Laboratory WBC 21.1 X10^3/uL (3.6-10.0) H 03/11/20 05:53 RBC 4.52 X10^6/uL (4.7-6.0) L 03/11/20 05:53 Hgb 13.5 g/dL (13.5-18.0) 03/11/20 05:53 Hct 42.4 % (42.0-54.0) 03/11/20 05:53 MCV 93.7 fL (80.0-100.0) 03/11/20 05:53 MCH 29.8 pg (27.0-34.0) 03/11/20 05:53 MCHC 31.8 g/dL (33.0-35.0) L 03/11/20 05:53 RDW 18.4 % (11.6-16.5) H 03/11/20 05:53 Plt Count 378 X10^3/uL (150.0-450.0) 03/11/20 05:53 Plt Count Comment Adequate (ADEQUATE) 03/11/20 05:53 MPV 5.7 fL (7.4-11.0) L 03/11/20 05:53 Neut % (Auto) 80.7 % (42.0-75.0) H 03/11/20 05:53 Lymph % (Auto) 7.3 % (21.0-51.0) L 03/11/20 05:53 Slope % (Auto) 10.9 % (0.0-13.0) 03/11/20 05:53 Eos % (Auto) 0.4 % (0.9-2.9) L 03/11/20 05:53 Baso % (Auto) 0.7 % (0.2-1.0) 03/11/20 05:53 Neut # (Auto) 17.0 x10^3/uL (2.2-4.8) H 03/11/20 05:53 Lymph # (Auto) 1.5 X10^3/uL (1.3-2.9) 03/11/20 05:53 Slope # (Auto) 2.3 x10^3/uL (0.3-0.8) H 03/11/20 05:53 Eos # (Auto) 0.1 x10^3/uL (0.0-0.2) 03/11/20 05:53 Baso # (Auto) 0.1 X10^3/uL (0.0-0.1) 03/11/20 05:53 Absolute Nucleated RBC 0.0 /100WBC 03/11/20 05:53 Total Counted 100 03/11/20 05:53 Neutrophils % (Manual) 79 % (39-76) H 03/11/20 05:53 Band Neutrophils % 10 % (0-10) 03/09/20 12:00 Lymphocytes % (Manual) 10 % (13-43) L 03/11/20 05:53 Monocytes % (Manual) 10 % (4-9) H 03/11/20 05:53 Eosinophils % (Manual) 1 % (0-6) 03/11/20 05:53 Plt Morphology Comment Normal (NORMAL) 03/11/20 05:53 RBC Morphology Normal (NORMAL) 03/11/20 05:53 PT 14.0 SECONDS (11.8-14.3) 03/09/20 12:00 INR Target Range - 03/09/20 12:00 INR 1.12 (0.8-1.3) 03/09/20 12:00 APTT 29.7 SECONDS (22.9-36.5) 03/09/20 12:00 PTT Comment - 03/09/20 12:00 D-Dimer 3.86 ug/ml (0.0-0.57) H* 03/09/20 12:00 Sample Site Lr 03/11/20 06:00 ABG pH 7.160 (7.35-7.45) L* 03/11/20 06:00 ABG pCO2 96.0 mmHg (35.0-45.0) H* 03/11/20 06:00 ABG pO2 80.0 mmHg (80.0-100.0) 03/11/20 06:00 ABG HCO3 34.2 mmol/L (22-26) H* 03/11/20 06:00 ABG O2 Saturation 92.0 % (90-100) 03/11/20 06:00 ABG Base Excess 2.7 mmol/L (-2.0-2.0) H 03/11/20 06:00 Adolph Test Pos 03/11/20 06:00 A-a Gradient 85.0 mmHg 03/11/20 06:00 FiO2 40.0 03/11/20 06:00 Blood Gas Comments Avelina well sw 03/11/20 06:00 Sodium 144 mmol/L (136-145) 03/11/20 05:53 Corrected Sodium 145 mmol/L (136-145) 03/11/20 05:53 Potassium 5.0 mmol/L (3.5-5.1) 03/11/20 05:53 Chloride 107 mmol/L (98-107) 03/11/20 05:53 Carbon Dioxide 32.0 mmol/L (21-32) 03/11/20 05:53 BUN 18 mg/dL (7-18) 03/11/20 05:53 Creatinine 1.11 mg/dL (0.70-1.30) 03/11/20 05:53 Est GFR (MDRD) Af Amer > 60 (>60) 03/11/20 05:53 Est GFR (MDRD) Non-Af > 60 (>60) 03/11/20 05:53 Glucose 123 mg/dL (65-99) H 03/11/20 05:53 Lactic Acid 1.9 mmol/L (0.4-2.0) 03/10/20 10:50 Calcium 8.4 mg/dL (8.5-10.1) L 03/11/20 05:53 Corrected Calcium 9.4 mg/dL (8.5-10.1) 03/11/20 05:53 Magnesium 2.3 mg/dL (1.7-2.9) 03/09/20 12:00 Total Bilirubin 0.70 mg/dL (0.2-1.0) 03/11/20 05:53 AST 139 Units/L (15-37) H 03/11/20 05:53 ALT 138 Units/L (12-78) H 03/11/20 05:53 Alkaline Phosphatase 520 Units/L (46-116) H 03/11/20 05:53 Creatine Kinase 81 Units/L (39-308) 03/09/20 12:00 CK-MB (CK-2) 2.8 ng/mL (0-4.0) 03/09/20 12:00 CK/CKMB % Calc 3.5 % (<4) 03/09/20 12:00 Troponin I 0.45 ng/mL (0-1.5) 03/09/20 12:00 B-Natriuretic Peptide 242 pg/mL (0-79) H 03/09/20 12:00 Total Protein 5.7 g/dL (6.4-8.2) L 03/11/20 05:53 Albumin 2.8 g/dL (3.4-5.0) L 03/11/20 05:53 Globulin 2.9 g/dL (2.5-4.5) 03/11/20 05:53 Albumin/Globulin Ratio 1.0 Ratio (1.1-2.1) L 03/11/20 05:53 Stool Description Ifob 03/09/20 11:55 Stl Occult Blood (IFOB) Positive (NEGATIVE) A 03/09/20 11:55 SARS-CoV-2 (PCR) Negative (NEGATIVE) 03/09/20 14:18 - Plan (1) Pneumonia Status: Acute Qualifiers: Pneumonia type: due to unspecified organism Laterality: bilateral Lung location: unspecified part of lung Qualified Code(s): J18.9 - Pneumonia, unspecified organism Plan: NS AT 150 ML/HR, FORTAZ 1G IV Q8H, ZOSYN 3.375G IV TID, LOVENOX 40MG SC DAILY, XOPENEX NEBS TID, DOPAMINE DRIP (2) Respiratory failure Status: Acute Qualifiers: Chronicity: acute Respiratory failure complication: hypoxia and hypercapnia Qualified Code(s): J96.01 - Acute respiratory failure with hypoxia; J96.02 - Acute respiratory failure with hypercapnia (3) Metastatic disease Status: Acute Qualifiers: Area of secondary neoplastic involvement: other site Qualified Code(s): C79.89 - Secondary malignant neoplasm of other specified sites (4) Chronic kidney disease (CKD) Status: Chronic Qualifiers: Chronic kidney disease stage: stage 3 (moderate) (5) History of lymphoma Status: Chronic (6) Hypothyroidism Status: Chronic Qualifiers: Hypothyroidism type: acquired Qualified Code(s): E03.9 - Hypothyroidism, unspecified (7) Mental retardation Status: Chronic
[2020-03-12] MEDS: DOPAMINE IV PREMIX 400 MG/250 ML 400 MG/250 ML BAG IV PRN ×3 (04:52→16:56)
[2020-03-12] MEDS: NS 1000 ML 1,000 ML IV SCH (05:02)
[2020-03-12 05:19] LABS: ABG ALLEN TEST POS; ABG BASE EXCESS 5.8 mmol/L (-2.0-2.0); ABG HCO3 33.4 mmol/L (22-26)
[2020-03-12] MEDS: XOPENEX 1.25 MG/3 ML NEBULE NEB SCH ×3 (05:21→21:25)
[2020-03-12] MEDS: FORTAZ or TAZICEF VIAL INJ 1 G in NS 100 ML IV + SPIKE MINIBAG* 100 ML IV SCH ×3 (05:48→21:01)
[2020-03-12] MEDS: ZOSYN VIAL 3.375 GRAMS 3.375 G in NS 100 ML IV + SPIKE MINIBAG* 100 ML IV SCH ×3 (05:49→21:01)
--- NOTE | 2020-03-12 06:04 | RAD ---
HISTORYShortness of breathSTUDYChest AP [id number]/09/2020FINDINGSThe heart remains enlarged. The aorta is calcified. Widening of the upper mediastinum is likely due to the patient's known bilateral perihilar upper and lower lobe interstitial and alveolar infiltrates are unchanged. Decreasing right pleural effusion noted. There is subsegmental atelectasis in the right base in the left perihilar region. No definite left pleural effusion is identified. Bony thorax is unremarkable. Mild to moderate gastric distension identified. Bony thorax is unremarkable.IMPRESSIONContinued cardiomegalyNo change bilateral interstitial and some patchy alveolar infiltratesDecreasing right pleural effusionWidened upper mediastinum likely due to the patient's known mediastinal adenopathyElectronically signed by: ISABELL JEFFERSON (Mar 12, 2020 06:02:43)
[2020-03-12 06:17] LABS: BASOPHILS # (AUTO) 0.1 X10^3/uL (0.0-0.1); BASOPHILS % (AUTO) 0.8 % (0.2-1.0); EOSINOPHILS # (AUTO) 0.3 x10^3/uL (0.0-0.2); EOSINOPHILS % (AUTO) 1.9 % (0.9-2.9); HEMATOCRIT 45.1 % (42.0-54.0); HEMOGLOBIN 14.5 g/dL (13.5-18.0); LYMPHOCYTES # (AUTO) 1.7 X10^3/uL (1.3-2.9); LYMPHOCYTES % (AUTO) 9.7 % (21.0-51.0); MEAN CORPUSCULAR HEMOGLOBIN 29.6 pg (27.0-34.0); MEAN CORPUSCULAR HGB CONC 32.1 g/dL (33.0-35.0); MEAN CORPUSCULAR VOLUME 92.2 fL (80.0-100.0); MEAN PLATELET VOLUME 5.7 fL (7.4-11.0); MONOCYTES # (AUTO) 1.9 x10^3/uL (0.3-0.8); MONOCYTES % (AUTO) 10.8 % (0.0-13.0); NEUTROPHILS # (AUTO) 13.6 x10^3/uL (2.2-4.8); NEUTROPHILS % (AUTO) 76.8 % (42.0-75.0); PLATELET COUNT 354 X10^3/uL (150.0-450.0); RED BLOOD COUNT 4.89 X10^6/uL (4.7-6.0); RED CELL DISTRIBUTION WIDTH 18.6 % (11.6-16.5); WHITE BLOOD COUNT 17.7 X10^3/uL (3.6-10.0)
[2020-03-12] MEDS: DEMEROL INJ IVP PRN ×3 (06:18→21:42)
[2020-03-12 06:27] LABS: ALANINE AMINOTRANSFERASE 126 Units/L (12-78); ALBUMIN 2.7 g/dL (3.4-5.0); ALKALINE PHOSPHATASE 563 Units/L (46-116); ASPARTATE AMINO TRANSFERASE 131 Units/L (15-37); BLOOD UREA NITROGEN 22 mg/dL (7-18); CALCIUM 8.7 mg/dL (8.5-10.1); CARBON DIOXIDE 30.5 mmol/L (21-32); CHLORIDE 106 mmol/L (98-107); COR CA(FOR HYPOALB) 9.7 mg/dL (8.5-10.1); COR NA(FOR HYPERGLY) 144 mmol/L (136-145); CREATININE 1.39 mg/dL (0.70-1.30); SODIUM 144 mmol/L (136-145); TOTAL PROTEIN 5.7 g/dL (6.4-8.2); eGFR NON BLACK RACES 56 (>60)
[2020-03-12] MEDS: SYNTHROID 150 mcg TAB PO SCH (09:17)
[2020-03-12] MEDS: LOVENOX INJ 40 MG SYR SC SCH (09:17)
[2020-03-12] MEDS: TAB-A-VITE PO SCH (09:18)
--- NOTE | 2020-03-12 13:20 | PCM.PROG ---
Progress Note - Progress Note for Day of Date of Exam: 03/12/20 - Subjective Subjective: WAS ADMITTED FOR TREATMENT OF PNEUMONIA, RESPIRATORY FAILURE, AND METASTATIC DISEASE. BIOPSIES FROM COLONOSCOPY LAST WEEK ARE PENDING. TODAY, HE IS ALERT, LYING IN BED ON MORNING ROUNDS. PATIENT CONTINUES WITH COMPLAINTS OF SHORTNESS OF BREATH THIS MORNING. PATIENTS SISTER REPORTS THAT HE APPEARED TO BE IN A LOT OF PAIN YESTERDAY, BUT SEEMS TO HAVE IMPROVED WITH ADMINISTRATION OF PAIN MEDICATION. ON EXAMINATION, HEART IS REGULAR IN RATE AND RHYTHM. BILATERAL LUNGS ARE NOTED WITH SCATTERED WHEEZING THROUGHOUT. ABDOMEN IS ROUND, SOFT, AND NOTED WITH DIFFUSE TENDERNESS. NORMAL BOWEL SOUNDS NOTED IN ALL QUADRANTS. HIS VITALS THIS MORNING ARE: 98.2-113-24-92%BIPAP-105/66. LABS WERE OBTAINED. ABNORMAL LAB VALUES INCLUDE THE FOLLOWING: WBC 17.7, BUN 22, CREATININE 1.39, GLUCOSE 112, AST 131, ALT 126, ALK PHOS 563, TOTAL PROTEIN 5.7, ALBUMIN 2.7. BLOOD CULTURES ARE PENDING. A CHEST XRAY WAS OBTAINED THIS MORNING AND REVEALED: Continued cardiomegaly. No change bilateral interstitial and some patchy alveolar infiltrates. Decreasing right pleural effusion. Widened upper mediastinum likely due to the patient's known mediastinal adenopathy. HE IS CURRENTLY RECEIVING NS AT 50 ML/HR, FORTAZ 1G IV Q8H, ZOSYN 3.375G IV TID, LOVENOX 40MG SC DAILY, XOPENEX NEBS TID, AND A DOPAMINE DRIP. HE IS RECEIVING THE MAXIUMUM DOSE ON THE DOPAMINE DRIP. HIS HOME MEDICATIONS WERE RESUMED. WE WILL CONTINUE WITH CURRENT PLAN OF CARE TODAY AND ADD PROCALAMINE AT 40 ML/HR. OTHERWISE, WE WILL FOLLOW UP WITH AM LABS AND CHEST XRAY AND CONTINUE TO MONITOR. - Past Medical Family Social History Past Med/Fam/Surg Hx: No changes since H&P Allergies: Allergies levofloxacin [From Levaquin] Allergy (Verified 03/09/20 12:44) - Review of Systems ROS: No change since H&P - Vital Signs and I&O's Vital Signs: Temperature 98.2 F Pulse Rate [Left Radial] 100 Pulse Rate 85 Respiratory Rate 18 Blood Pressure [Left Arm] 112/79 Blood Pressure 100/60 O2 Sat by Pulse Oximetry 92 Intake and Output: Intake & Output 03/10/20 03/11/20 03/12/20/11/20 11:59 11:59 11:59 11:59 Intake Total 3735 / 3735 3950 / 3950 3497.00 / 3497.00 Output Total 0 / 0 Balance 3735 / 3735 3950 / 3950 3497.00 / 3497.00 - Physical Exam Oriented: Normal Eyes: Normal Ear: Normal Nose: Normal Throat: Normal Respiratory: Generalized, Diminished, Wheezes Cardiovascular: Normal : Normal Auscultation: Bowel Sounds: Normal Tenderness: Diffuse, Mild Skin: Normal Musculoskeletal: Normal Psychiatric: Normal Mood Description: Calm Affect: Normal Speech Pattern: Clear, Appropriate - Laboratory and Diagnostics Result Diagrams: 03/12/20 06:04 03/12/20 06:04 Labs: Laboratory WBC 17.7 X10^3/uL (3.6-10.0) H 03/12/20 06:04 RBC 4.89 X10^6/uL (4.7-6.0) 03/12/20 06:04 Hgb 14.5 g/dL (13.5-18.0) 03/12/20 06:04 Hct 45.1 % (42.0-54.0) 03/12/20 06:04 MCV 92.2 fL (80.0-100.0) 03/12/20 06:04 MCH 29.6 pg (27.0-34.0) 03/12/20 06:04 MCHC 32.1 g/dL (33.0-35.0) L 03/12/20 06:04 RDW 18.6 % (11.6-16.5) H 03/12/20 06:04 Plt Count 354 X10^3/uL (150.0-450.0) 03/12/20 06:04 Plt Count Comment Adequate (ADEQUATE) 03/11/20 05:53 MPV 5.7 fL (7.4-11.0) L 03/12/20 06:04 Neut % (Auto) 76.8 % (42.0-75.0) H 03/12/20 06:04 Lymph % (Auto) 9.7 % (21.0-51.0) L 03/12/20 06:04 Gooding % (Auto) 10.8 % (0.0-13.0) 03/12/20 06:04 Eos % (Auto) 1.9 % (0.9-2.9) 03/12/20 06:04 Baso % (Auto) 0.8 % (0.2-1.0) 03/12/20 06:04 Neut # (Auto) 13.6 x10^3/uL (2.2-4.8) H 03/12/20 06:04 Lymph # (Auto) 1.7 X10^3/uL (1.3-2.9) 03/12/20 06:04 Gooding # (Auto) 1.9 x10^3/uL (0.3-0.8) H 03/12/20 06:04 Eos # (Auto) 0.3 x10^3/uL (0.0-0.2) H 03/12/20 06:04 Baso # (Auto) 0.1 X10^3/uL (0.0-0.1) 03/12/20 06:04 Absolute Nucleated RBC 0.0 /100WBC 03/12/20 06:04 Total Counted 100 03/11/20 05:53 Neutrophils % (Manual) 79 % (39-76) H 03/11/20 05:53 Band Neutrophils % 10 % (0-10) 03/09/20 12:00 Lymphocytes % (Manual) 10 % (13-43) L 03/11/20 05:53 Monocytes % (Manual) 10 % (4-9) H 03/11/20 05:53 Eosinophils % (Manual) 1 % (0-6) 03/11/20 05:53 Plt Morphology Comment Normal (NORMAL) 03/11/20 05:53 RBC Morphology Normal (NORMAL) 03/11/20 05:53 PT 14.0 SECONDS (11.8-14.3) 03/09/20 12:00 INR Target Range - 03/09/20 12:00 INR 1.12 (0.8-1.3) 03/09/20 12:00 APTT 29.7 SECONDS (22.9-36.5) 03/09/20 12:00 PTT Comment - 03/09/20 12:00 D-Dimer 3.86 ug/ml (0.0-0.57) H* 03/09/20 12:00 Sample Site Lr 03/12/20 05:10 ABG pH 7.340 (7.35-7.45) L 03/12/20 05:10 ABG pCO2 62.0 mmHg (35.0-45.0) H* 03/12/20 05:10 ABG pO2 79.0 mmHg (80.0-100.0) L 03/12/20 05:10 ABG HCO3 33.4 mmol/L (22-26) H* 03/12/20 05:10 ABG O2 Saturation 95.0 % (90-100) 03/12/20 05:10 ABG Base Excess 5.8 mmol/L (-2.0-2.0) H 03/12/20 05:10 Adolph Test Pos 03/12/20 05:10 A-a Gradient 129.0 mmHg 03/12/20 05:10 FiO2 40.0 03/12/20 05:10 Blood Gas Comments Avelina well ae 03/12/20 05:10 Sodium 144 mmol/L (136-145) 03/12/20 06:04 Corrected Sodium 144 mmol/L (136-145) 03/12/20 06:04 Potassium 5.0 mmol/L (3.5-5.1) 03/12/20 06:04 Chloride 106 mmol/L (98-107) 03/12/20 06:04 Carbon Dioxide 30.5 mmol/L (21-32) 03/12/20 06:04 BUN 22 mg/dL (7-18) H 03/12/20 06:04 Creatinine 1.39 mg/dL (0.70-1.30) H 03/12/20 06:04 Est GFR (MDRD) Af Amer > 60 (>60) 03/12/20 06:04 Est GFR (MDRD) Non-Af 56 (>60) L 03/12/20 06:04 Glucose 112 mg/dL (65-99) H 03/12/20 06:04 Lactic Acid 1.9 mmol/L (0.4-2.0) 03/10/20 10:50 Calcium 8.7 mg/dL (8.5-10.1) 03/12/20 06:04 Corrected Calcium 9.7 mg/dL (8.5-10.1) 03/12/20 06:04 Magnesium 2.3 mg/dL (1.7-2.9) 03/09/20 12:00 Total Bilirubin 0.90 mg/dL (0.2-1.0) 03/12/20 06:04 AST 131 Units/L (15-37) H 03/12/20 06:04 ALT 126 Units/L (12-78) H 03/12/20 06:04 Alkaline Phosphatase 563 Units/L (46-116) H 03/12/20 06:04 Creatine Kinase 81 Units/L (39-308) 03/09/20 12:00 CK-MB (CK-2) 2.8 ng/mL (0-4.0) 03/09/20 12:00 CK/CKMB % Calc 3.5 % (<4) 03/09/20 12:00 Troponin I 0.45 ng/mL (0-1.5) 03/09/20 12:00 B-Natriuretic Peptide 242 pg/mL (0-79) H 03/09/20 12:00 Total Protein 5.7 g/dL (6.4-8.2) L 03/12/20 06:04 Albumin 2.7 g/dL (3.4-5.0) L 03/12/20 06:04 Globulin 3.0 g/dL (2.5-4.5) 03/12/20 06:04 Albumin/Globulin Ratio 0.9 Ratio (1.1-2.1) L 03/12/20 06:04 Stool Description Ifob 03/09/20 11:55 Stl Occult Blood (IFOB) Positive (NEGATIVE) A 03/09/20 11:55 SARS-CoV-2 (PCR) Negative (NEGATIVE) 03/09/20 14:18 - Plan (1) Pneumonia Status: Acute Qualifiers: Pneumonia type: due to unspecified organism Laterality: bilateral Lung location: unspecified part of lung Qualified Code(s): J18.9 - Pneumonia, unspecified organism Plan: PROCALAMINE AT 40 ML/HR FORTAZ 1G IV Q8H, ZOSYN 3.375G IV TID, LOVENOX 40MG SC DAILY, XOPENEX NEBS TID, DOPAMINE DRIP (2) Respiratory failure Status: Acute Qualifiers: Chronicity: acute Respiratory failure complication: hypoxia and hypercapnia Qualified Code(s): J96.01 - Acute respiratory failure with hypoxia; J96.02 - Acute respiratory failure with hypercapnia (3) Metastatic disease Status: Acute Qualifiers: Area of secondary neoplastic involvement: other site Qualified Code(s): C79.89 - Secondary malignant neoplasm of other specified sites (4) Chronic kidney disease (CKD) Status: Chronic Qualifiers: Chronic kidney disease stage: stage 3 (moderate) (5) History of lymphoma Status: Chronic (6) Hypothyroidism Status: Chronic Qualifiers: Hypothyroidism type: acquired Qualified Code(s): E03.9 - Hypothyroidism, unspecified (7) Mental retardation Status: Chronic
--- NOTE | 2020-03-12 14:43 | RAD ---
HISTORYCENTRAL LINE PLACEMENT- SOBSTUDYCHEST, 1 VIEWCOMPARISONEarlier same dayFINDINGSThe trachea is midline. The cardiac silhouette is enlarged but stable. There is a left-sided central line now noted with tip overlying the mid SVC.. The lungs demonstrate stable diffuse scattered airspace opacities throughout both lungs unchanged from prior. No pneumothorax is seen. The bony thorax is unremarkable.IMPRESSIONLeft-sided line placement as above otherwise stable chestElectronically signed by: TATUM JACOBSEN (Mar 12, 2020 14:42:00)
[2020-03-12] MEDS: PROCALAMINE 3 % 1,000 ML IV SCH (15:29)
[2020-03-13] MEDS: DEMEROL INJ IVP PRN ×4 (01:28→18:18)
[2020-03-13] MEDS: DOPAMINE IV PREMIX 400 MG/250 ML 400 MG/250 ML BAG IV PRN ×3 (01:58→18:18)
[2020-03-13 04:48] LABS: ABG BASE EXCESS 4.5 mmol/L (-2.0-2.0)
[2020-03-13 04:51] LABS: ABG ALLEN TEST POS; ABG HCO3 33.5 mmol/L (22-26)
[2020-03-13] MEDS: XOPENEX 1.25 MG/3 ML NEBULE NEB SCH ×3 (05:00→20:30)
[2020-03-13] MEDS: ZOSYN VIAL 3.375 GRAMS 3.375 G in NS 100 ML IV + SPIKE MINIBAG* 100 ML IV SCH ×3 (05:55→21:51)
[2020-03-13] MEDS: FORTAZ or TAZICEF VIAL INJ 1 G in NS 100 ML IV + SPIKE MINIBAG* 100 ML IV SCH ×4 (05:55→21:50)
--- NOTE | 2020-03-13 05:57 | RAD ---
HISTORYSOBSTUDYCHEST, 1 [id number]/10/2020FINDINGSThe trachea is midline. The cardiac silhouette is enlarged unchanged compared to prior exam.. Improved aeration of the bilateral lung bases with persistent patchy bilateral pulmonary opacities/infiltrates. Small right pleural effusion suspected. Left IJ CVC unchanged.. The bony thorax is unremarkable.IMPRESSIONImproved aeration at the lung bases.Electronically signed by: Serene Burks (Mar 13, 2020 05:55:47)
[2020-03-13 06:35] LABS: BASOPHILS # (AUTO) 0.1 X10^3/uL (0.0-0.1); BASOPHILS % (AUTO) 0.8 % (0.2-1.0); HEMATOCRIT 38.4 % (42.0-54.0); LYMPHOCYTES # (AUTO) 1.5 X10^3/uL (1.3-2.9); LYMPHOCYTES % (AUTO) 9.1 % (21.0-51.0); MEAN CORPUSCULAR HEMOGLOBIN 29.4 pg (27.0-34.0); MEAN CORPUSCULAR HGB CONC 31.3 g/dL (33.0-35.0); MEAN CORPUSCULAR VOLUME 94.1 fL (80.0-100.0); MEAN PLATELET VOLUME 5.5 fL (7.4-11.0); MONOCYTES # (AUTO) 1.9 x10^3/uL (0.3-0.8); MONOCYTES % (AUTO) 11.6 % (0.0-13.0); NEUTROPHILS # (AUTO) 12.6 x10^3/uL (2.2-4.8); NEUTROPHILS % (AUTO) 78.5 % (42.0-75.0); PLATELET COUNT 339 X10^3/uL (150.0-450.0); RED BLOOD COUNT 4.08 X10^6/uL (4.7-6.0); RED CELL DISTRIBUTION WIDTH 18.7 % (11.6-16.5); WHITE BLOOD COUNT 16.1 X10^3/uL (3.6-10.0)
[2020-03-13 07:08] LABS: ALBUMIN 2.4 g/dL (3.4-5.0); CALCIUM 8.4 mg/dL (8.5-10.1); CARBON DIOXIDE 32.4 mmol/L (21-32); COR CA(FOR HYPOALB) 9.7 mg/dL (8.5-10.1); CREATININE 2.01 mg/dL (0.70-1.30); TOTAL PROTEIN 5.1 g/dL (6.4-8.2)
[2020-03-13 07:24] LABS: ERYTHROCYTE SEDIMENTATION RATE 35 MM/HOUR (0-15)
[2020-03-13] MEDS: LOVENOX INJ 40 MG SYR SC SCH (09:01)
[2020-03-13] MEDS: SYNTHROID 150 mcg TAB PO SCH (09:02)
[2020-03-13] MEDS: TAB-A-VITE PO SCH (09:02)
[2020-03-13] MEDS: NS 1000 ML 1,000 ML IV SCH (09:04)
[2020-03-13] MEDS: PROCALAMINE 3 % 1,000 ML IV SCH ×2 (09:05→17:31)
--- NOTE | 2020-03-13 19:51 | PCM.PROG ---
Progress Note - Progress Note for Day of Date of Exam: 03/13/20 - Subjective Subjective: WAS ADMITTED FOR TREATMENT OF PNEUMONIA, RESPIRATORY FAILURE, AND METASTATIC DISEASE. BIOPSIES FROM COLONOSCOPY LAST WEEK ARE PENDING. TODAY, HE IS ALERT, LYING IN BED ON MORNING ROUNDS. HE IS CURRENTLY UTILIZING THE BIPAP. PATIENT CONTINUES WITH COMPLAINTS OF SHORTNESS OF BREATH TH IS MORNING. PATIENTS SISTER REPORTS THAT HE HAS A MODERATE AMOUNT OF LOWER EXTREMITY SWELLING. ON EXAMINATION, HEART IS REGULAR IN RATE AND RHYTHM. BILATERAL LUNGS ARE NOTED WITH SCATTERED WHEEZING THROUGHOUT. ABDOMEN IS ROUND, SOFT, AND NOTED WITH DIFFUSE TENDERNESS. NORMAL BOWEL SOUNDS NOTED IN ALL QUADRANTS. LOWER EXTREMITIES ARE NOTED WITH 2+ PITTING EDEMA. HIS VITALS THIS MORNING ARE: 98.9-100-25-93% BIPAP-102/80. LABS WERE OBTAINED. ABNORMAL LAB VALUES INCLUDE THE FOLLOWING: WBC 16.1, RBC 4.08, HGB 12.0, HCT 38.4, POTASSIUM 5.3, CARBON DIOIXDE 32.4, BUN 32, CREATININE 2.01, GLUCOSE 119, CALCIUM 8.4, AST 102, ALT 99, ALK PHOS 477, CRP 28.20, TOTAL PROTEIN 5.1, ALBUMIN 2.4. BLOOD CULTURES ARE PENDING. A CHEST XRAY WAS OBTAINED THIS MORNING AND REVEALED: Improved aeration at the lung bases. HE IS CURRENTLY RECEIVING NS AT 50 ML/HR, PROCALAMINE AT 40 ML/HR, FORTAZ 1G IV Q8H, ZOSYN 3.375G IV TID, LOVENOX 40MG SC DAILY, XOPENEX NEBS TID, AND A DOPAMINE DRIP. HOME MEDICATIONS WERE RESUMED. WE WILL CONTINUE WITH CURRENT PLAN OF CARE TODAY AND CHANGE LOVENOX TO 30MG PO BID. OTHERWISE, WE WILL FOLLOW UP WITH AM LABS AND CHEST XRAY AND CONTINUE TO MONITOR. - Past Medical Family Social History Past Med/Fam/Surg Hx: No changes since H&P Allergies: Allergies levofloxacin [From Levaquin] Allergy (Verified 03/09/20 12:44) - Review of Systems ROS: No change since H&P - Vital Signs and I&O's Vital Signs: Temperature 97.6 F Pulse Rate [Left Radial] 94 Pulse Rate 98 Respiratory Rate 32 Blood Pressure [Left Arm] 84/51 Blood Pressure 100/60 O2 Sat by Pulse Oximetry 94 Intake and Output: Intake & Output 03/11/20 03/12/20 03/13/20 03/14/20 11:59 11:59 11:59 11:59 Intake Total 3950 / 3950 3497.00 / 3497.00 3298.0 / 3298.0 1934 Balance 3950 / 3950 3497.00 / 3497.00 3298.0 / 3298.0 1934 - Physical Exam Oriented: Normal Eyes: Normal Ear: Normal Nose: Normal Throat: Normal Respiratory: Generalized, Diminished, Wheezes Cardiovascular: Normal : Normal Auscultation: Bowel Sounds: Normal Tenderness: Diffuse, Mild Skin: Normal Musculoskeletal: Normal Psychiatric: Normal Mood Description: Calm Affect: Normal Speech Pattern: Clear, Appropriate - Laboratory and Diagnostics Result Diagrams: 03/13/20 06:13 03/13/20 06:13 Labs: 03/10/20 11:10 Blood Blood Culture - Preliminary 03/10/20 10:50 Blood Blood Culture - Preliminary Laboratory WBC 16.1 X10^3/uL (3.6-10.0) H 03/13/20 06:13 RBC 4.08 X10^6/uL (4.7-6.0) L 03/13/20 06:13 Hgb 12.0 g/dL (13.5-18.0) L D 03/13/20 06:13 Hct 38.4 % (42.0-54.0) L 03/13/20 06:13 MCV 94.1 fL (80.0-100.0) 03/13/20 06:13 MCH 29.4 pg (27.0-34.0) 03/13/20 06:13 MCHC 31.3 g/dL (33.0-35.0) L 03/13/20 06:13 RDW 18.7 % (11.6-16.5) H 03/13/20 06:13 Plt Count 339 X10^3/uL (150.0-450.0) 03/13/20 06:13 Plt Count Comment Adequate (ADEQUATE) 03/11/20 05:53 MPV 5.5 fL (7.4-11.0) L 03/13/20 06:13 Neut % (Auto) 78.5 % (42.0-75.0) H 03/13/20 06:13 Lymph % (Auto) 9.1 % (21.0-51.0) L 03/13/20 06:13 Kay % (Auto) 11.6 % (0.0-13.0) 03/13/20 06:13 Eos % (Auto) 0.0 % (0.9-2.9) L 03/13/20 06:13 Baso % (Auto) 0.8 % (0.2-1.0) 03/13/20 06:13 Neut # (Auto) 12.6 x10^3/uL (2.2-4.8) H 03/13/20 06:13 Lymph # (Auto) 1.5 X10^3/uL (1.3-2.9) 03/13/20 06:13 Kay # (Auto) 1.9 x10^3/uL (0.3-0.8) H 03/13/20 06:13 Eos # (Auto) 0.0 x10^3/uL (0.0-0.2) 03/13/20 06:13 Baso # (Auto) 0.1 X10^3/uL (0.0-0.1) 03/13/20 06:13 Absolute Nucleated RBC 0.0 /100WBC 03/13/20 06:13 Total Counted 100 03/11/20 05:53 Neutrophils % (Manual) 79 % (39-76) H 03/11/20 05:53 Band Neutrophils % 10 % (0-10) 03/09/20 12:00 Lymphocytes % (Manual) 10 % (13-43) L 03/11/20 05:53 Monocytes % (Manual) 10 % (4-9) H 03/11/20 05:53 Eosinophils % (Manual) 1 % (0-6) 03/11/20 05:53 Plt Morphology Comment Normal (NORMAL) 03/11/20 05:53 RBC Morphology Normal (NORMAL) 03/11/20 05:53 ESR 35 MM/HOUR (0-15) H 03/13/20 06:13 PT 14.0 SECONDS (11.8-14.3) 03/09/20 12:00 INR Target Range - 03/09/20 12:00 INR 1.12 (0.8-1.3) 03/09/20 12:00 APTT 29.7 SECONDS (22.9-36.5) 03/09/20 12:00 PTT Comment - 03/09/20 12:00 D-Dimer 3.86 ug/ml (0.0-0.57) H* 03/09/20 12:00 Sample Site Lrad 03/13/20 04:35 ABG pH 7.270 (7.35-7.45) L 03/13/20 04:35 ABG pCO2 73.0 mmHg (35.0-45.0) H* 03/13/20 04:35 ABG pO2 68.0 mmHg (80.0-100.0) L 03/13/20 04:35 ABG HCO3 33.5 mmol/L (22-26) H* 03/13/20 04:35 ABG O2 Saturation 90.0 % (90-100) 03/13/20 04:35 ABG Base Excess 4.5 mmol/L (-2.0-2.0) H 03/13/20 04:35 Adolph Test Pos 03/13/20 04:35 A-a Gradient 126.0 mmHg 03/13/20 04:35 FiO2 40.0 03/13/20 04:35 Blood Gas Comments Avelina well ah 03/13/20 04:35 Sodium 144 mmol/L (136-145) 03/13/20 06:13 Corrected Sodium 144 mmol/L (136-145) 03/13/20 06:13 Potassium 5.3 mmol/L (3.5-5.1) H 03/13/20 06:13 Chloride 107 mmol/L (98-107) 03/13/20 06:13 Carbon Dioxide 32.4 mmol/L (21-32) H 03/13/20 06:13 BUN 32 mg/dL (7-18) H 03/13/20 06:13 Creatinine 2.01 mg/dL (0.70-1.30) H 03/13/20 06:13 Est GFR (MDRD) Af Amer 44 (>60) L 03/13/20 06:13 Est GFR (MDRD) Non-Af 36 (>60) L 03/13/20 06:13 Glucose 119 mg/dL (65-99) H 03/13/20 06:13 Lactic Acid 1.9 mmol/L (0.4-2.0) 03/10/20 10:50 Calcium 8.4 mg/dL (8.5-10.1) L 03/13/20 06:13 Corrected Calcium 9.7 mg/dL (8.5-10.1) 03/13/20 06:13 Magnesium 2.3 mg/dL (1.7-2.9) 03/09/20 12:00 Total Bilirubin 1.00 mg/dL (0.2-1.0) 03/13/20 06:13 AST 102 Units/L (15-37) H 03/13/20 06:13 ALT 99 Units/L (12-78) H 03/13/20 06:13 Alkaline Phosphatase 477 Units/L (46-116) H 03/13/20 06:13 Creatine Kinase 81 Units/L (39-308) 03/09/20 12:00 CK-MB (CK-2) 2.8 ng/mL (0-4.0) 03/09/20 12:00 CK/CKMB % Calc 3.5 % (<4) 03/09/20 12:00 Troponin I 0.45 ng/mL (0-1.5) 03/09/20 12:00 C-Reactive Protein 28.20 mg/L (0-3.0) H 03/13/20 06:13 B-Natriuretic Peptide 242 pg/mL (0-79) H 03/09/20 12:00 Total Protein 5.1 g/dL (6.4-8.2) L 03/13/20 06:13 Albumin 2.4 g/dL (3.4-5.0) L 03/13/20 06:13 Globulin 2.7 g/dL (2.5-4.5) 03/13/20 06:13 Albumin/Globulin Ratio 0.9 Ratio (1.1-2.1) L 03/13/20 06:13 Stool Description Ifob 03/09/20 11:55 Stl Occult Blood (IFOB) Positive (NEGATIVE) A 03/09/20 11:55 SARS-CoV-2 (PCR) Negative (NEGATIVE) 03/09/20 14:18 - Plan (1) Pneumonia Status: Acute Qualifiers: Pneumonia type: due to unspecified organism Laterality: bilateral Lung location: unspecified part of lung Qualified Code(s): J18.9 - Pneumonia, unspecified organism Plan: PROCALAMINE AT 40 ML/HR, NS AT 50 ML/HR, FORTAZ 1G IV Q8H, ZOSYN 3.375G IV TID, LOVENOX 30MG SC BID, XOPENEX NEBS TID, DOPAMINE DRIP (2) Respiratory failure Status: Acute Qualifiers: Chronicity: acute Respiratory failure complication: hypoxia and hypercapnia Qualified Code(s): J96.01 - Acute respiratory failure with hypoxia; J96.02 - Acute respiratory failure with hypercapnia (3) Metastatic disease Status: Acute Qualifiers: Area of secondary neoplastic involvement: other site Qualified Code(s): C79.89 - Secondary malignant neoplasm of other specified sites (4) Chronic kidney disease (CKD) Status: Chronic Qualifiers: Chronic kidney disease stage: stage 3 (moderate) (5) History of lymphoma Status: Chronic (6) Hypothyroidism Status: Chronic Qualifiers: Hypothyroidism type: acquired Qualified Code(s): E03.9 - Hypothyroidism, unspecified (7) Mental retardation Status: Chronic
[2020-03-13] MEDS: LOVENOX INJ 30 MG SYR SC SCH (20:39)
[2020-03-14] MEDS: NS 1000 ML 1,000 ML IV SCH ×2 (01:35→13:12)
[2020-03-14] MEDS: DOPAMINE IV PREMIX 400 MG/250 ML 400 MG/250 ML BAG IV PRN ×2 (04:58→09:51)
[2020-03-14] MEDS: FORTAZ or TAZICEF VIAL INJ 1 G in NS 100 ML IV + SPIKE MINIBAG* 100 ML IV SCH (05:54)
[2020-03-14] MEDS: ZOSYN VIAL 3.375 GRAMS 3.375 G in NS 100 ML IV + SPIKE MINIBAG* 100 ML IV SCH ×2 (05:54→14:54)
[2020-03-14 06:03] LABS: ABG BASE EXCESS 0.7 mmol/L (-2.0-2.0)
[2020-03-14 06:06] LABS: ABG ALLEN TEST POS
[2020-03-14] MEDS: XOPENEX 1.25 MG/3 ML NEBULE NEB SCH ×2 (06:15→13:20)
[2020-03-14 06:18] LABS: BASOPHILS # (AUTO) 0.1 X10^3/uL (0.0-0.1); BASOPHILS % (AUTO) 0.6 % (0.2-1.0); EOSINOPHILS % (AUTO) 0.2 % (0.9-2.9); HEMATOCRIT 34.8 % (42.0-54.0); HEMOGLOBIN 11.1 g/dL (13.5-18.0); LYMPHOCYTES # (AUTO) 1.8 X10^3/uL (1.3-2.9); LYMPHOCYTES % (AUTO) 10.4 % (21.0-51.0); MEAN CORPUSCULAR HGB CONC 31.7 g/dL (33.0-35.0); MEAN CORPUSCULAR VOLUME 94.4 fL (80.0-100.0); MEAN PLATELET VOLUME 5.9 fL (7.4-11.0); MONOCYTES # (AUTO) 2.9 x10^3/uL (0.3-0.8); MONOCYTES % (AUTO) 16.6 % (0.0-13.0); NEUTROPHILS # (AUTO) 12.7 x10^3/uL (2.2-4.8); NEUTROPHILS % (AUTO) 72.2 % (42.0-75.0); PLATELET COUNT 358 X10^3/uL (150.0-450.0); RED BLOOD COUNT 3.69 X10^6/uL (4.7-6.0); WHITE BLOOD COUNT 17.5 X10^3/uL (3.6-10.0)
--- NOTE | 2020-03-14 06:31 | RAD ---
HISTORYSOBSTUDYCHEST, 1 VIEWCOMPARISONOne day priorTECHNIQUEAP view of the chestFINDINGSCardiac silhouette is stably enlarged. Diffuse bilateral airspace disease is similar. No large pleural effusion. No pneumothorax.IMPRESSIONNo significant change.Electronically signed by: Moi Bella (Mar 14, 2020 06:30:39)
[2020-03-14 06:44] LABS: ALANINE AMINOTRANSFERASE 142 Units/L (12-78); ALBUMIN 2.3 g/dL (3.4-5.0); ALKALINE PHOSPHATASE 531 Units/L (46-116); ASPARTATE AMINO TRANSFERASE 266 Units/L (15-37); BLOOD UREA NITROGEN 49 mg/dL (7-18); CALCIUM 8.6 mg/dL (8.5-10.1); CARBON DIOXIDE 31.5 mmol/L (21-32); CHLORIDE 106 mmol/L (98-107); CREATININE 3.43 mg/dL (0.70-1.30); SODIUM 142 mmol/L (136-145); TOTAL PROTEIN 5.1 g/dL (6.4-8.2); eGFR NON BLACK RACES 20 (>60)
[2020-03-14 07:12] LABS: ERYTHROCYTE SEDIMENTATION RATE 13 MM/HOUR (0-15)
[2020-03-14] MEDS: DEMEROL INJ IVP PRN ×2 (07:57→14:35)
[2020-03-14] MEDS: LOVENOX INJ 30 MG SYR SC SCH (09:30)
[2020-03-14] MEDS: SYNTHROID 150 mcg TAB PO SCH (09:31)
[2020-03-14] MEDS: PROCALAMINE 3 % 1,000 ML IV SCH (09:31)
[2020-03-14] MEDS: TAB-A-VITE PO SCH (09:31)
--- NOTE | 2020-03-14 11:35 | PCM.PROG ---
Progress Note - Progress Note for Day of Date of Exam: 03/14/20 - Subjective Subjective: WAS ADMITTED FOR TREATMENT OF PNEUMONIA, RESPIRATORY FAILURE, AND METASTATIC DISEASE. BIOPSIES FROM COLONOSCOPY LAST WEEK WERE POSITIVE FOR ADENOCARCINOMA. TODAY, LYING IN BED WITH EYES CLOSED ON MORNING ROUNDS. PATIENT OPENS HIS EYES TO VERBAL STIMULI, BUT DOES NOT VERBALLY RESPOND TODAY. HE IS CURRENTLY UTILIZING THE BIPAP. RESPIRATORY THERAPY REPORTS THAT PATIENTS OXYGEN SATURATIONS DROP TO THE 60s AND 70s WHEN BIPAP IS REMOVED. PATIENTS SISTER REPORTS THAT PATIENT MOANS OUT IN PAIN AT TIMES. ON EXAMINATION, HEART IS REGULAR IN RATE AND RHYTHM. BILATERAL LUNGS ARE NOTED WITH SCATTERED WHEEZING THROUGHOUT. ABDOMEN IS ROUND, SOFT, AND NOTED WITH DIFFUSE TENDERNESS. NORMAL BOWEL SOUNDS NOTED IN ALL QUADRANTS. LOWER EXTREMITIES ARE NOTED WITH 2+ PITTING EDEMA. A BELTRAN CATHETER IS NOTED TO BEDSIDE DRAINAGE. THERE HAS BEEN NO MEANINGFUL OUTPUT THROUGHOUT THE NIGHT. HIS VITALS THIS MORNING ARE: 97.2-95-42-92%BIPAP-100/62. LABS WERE OBTAINED. ABNORMAL LAB VALUES INCLUDE THE FOLLOWING: WBC 17.5, RBC 3.69, HGB 11.1, HCT 34.8, POTASSIUM 5.9, BUN 49, CREATININE 3.43, GLUCOSE 106, AST 266, ALT 142, ALK PHOS 531, CRP 34.90, TOTAL PROTEIN 5.1, ALBUMIN 2.3. BLOOD CULTURES ARE PENDING. AN ABG WAS OBTAINED THIS MORNING AND REVEALED: PH 7.150, PC02 92.0, P02 94.0, HC03 32.0, 02 SAT 95.0, FI02 60.0 A CHEST XRAY WAS OBTAINED THIS MORNING AND REVEALED: Cardiac silhouette is stably enlarged. Diffuse bilateral airspace disease is similar. No large pleural effusion. No pneumothorax. HE IS CURRENTLY RECEIVING NS AT 50 ML/HR, PROCALAMINE AT 40 ML/HR, FORTAZ 1G IV Q8H, ZOSYN 3.375G IV TID, LOVENOX 30MG SC BID, XOPENEX NEBS TID, AND A DOPAMINE DRIP. HOME MEDICATIONS WERE RESUMED. HE IS MAXED OUT ON THE DOPAMINE DRIP. WE HAVE DISCUSSED PATIENTS CRITICAL CONDITION WITH HIS FAMILY MEMBERS. THEY WISH FOR PATIENT TO BED KEPT COMFORTABLE AT THIS TIME. WE ARE IN AGREEMENT WITH THEIR WISHES. WE WILL DISCONTINUE IV ANTIBITOCS AND THERAPIES AND HIS ORAL MEDICATIONS. WE WILL START MEDICATIONS FOR PALLIATIVE CARE. OTHERWISE, WE WILL CONTINUE TO MONITOR AND MAKE ADJUSTMENTS ACCORDINGLY. - Past Medical Family Social History Past Med/Fam/Surg Hx: No changes since H&P Allergies: Allergies levofloxacin [From Levaquin] Allergy (Verified 03/09/20 12:44) - Review of Systems ROS: No change since H&P - Vital Signs and I&O's Vital Signs: Temperature 97.2 F Pulse Rate [Left Radial] 95 Pulse Rate 91 Respiratory Rate 42 Blood Pressure [Left Arm] 100/62 Blood Pressure 100/60 O2 Sat by Pulse Oximetry 92 Intake and Output: Intake & Output 03/11/20 03/12/20 03/13/20 03/14/20 11:59 11:59 11:59 11:59 Intake Total 3950 / 3950 3497.00 / 3497.00 3298.0 / 3298.0 3510 / 3510 Balance 3950 / 3950 3497.00 / 3497.00 3298.0 / 3298.0 3510 / 3510 - Physical Exam Oriented: Normal Eyes: Normal Ear: Normal Nose: Normal Throat: Normal Respiratory: Generalized, Diminished, Wheezes Cardiovascular: Normal : Normal Auscultation: Bowel Sounds: Normal Palpation: Normal Tenderness: Diffuse, Mild Skin: Normal Musculoskeletal: Normal Psychiatric: Normal Mood Description: Calm Affect: Normal Speech Pattern: Unclear - Laboratory and Diagnostics Result Diagrams: 03/14/20 05:35 03/14/20 05:35 Labs: 03/10/20 11:10 Blood Blood Culture - Preliminary 03/10/20 10:50 Blood Blood Culture - Preliminary Laboratory WBC 17.5 X10^3/uL (3.6-10.0) H 03/14/20 05:35 RBC 3.69 X10^6/uL (4.7-6.0) L 03/14/20 05:35 Hgb 11.1 g/dL (13.5-18.0) L 03/14/20 05:35 Hct 34.8 % (42.0-54.0) L 03/14/20 05:35 MCV 94.4 fL (80.0-100.0) 03/14/20 05:35 MCH 30.0 pg (27.0-34.0) 03/14/20 05:35 MCHC 31.7 g/dL (33.0-35.0) L 03/14/20 05:35 RDW 19.0 % (11.6-16.5) H 03/14/20 05:35 Plt Count 358 X10^3/uL (150.0-450.0) 03/14/20 05:35 Plt Count Comment Adequate (ADEQUATE) 03/11/20 05:53 MPV 5.9 fL (7.4-11.0) L 03/14/20 05:35 Neut % (Auto) 72.2 % (42.0-75.0) 03/14/20 05:35 Lymph % (Auto) 10.4 % (21.0-51.0) L 03/14/20 05:35 [place] % (Auto) 16.6 % (0.0-13.0) H 03/14/20 05:35 Eos % (Auto) 0.2 % (0.9-2.9) L 03/14/20 05:35 Baso % (Auto) 0.6 % (0.2-1.0) 03/14/20 05:35 Neut # (Auto) 12.7 x10^3/uL (2.2-4.8) H 03/14/20 05:35 Lymph # (Auto) 1.8 X10^3/uL (1.3-2.9) 03/14/20 05:35 [place] # (Auto) 2.9 x10^3/uL (0.3-0.8) H 03/14/20 05:35 Eos # (Auto) 0.0 x10^3/uL (0.0-0.2) 03/14/20 05:35 Baso # (Auto) 0.1 X10^3/uL (0.0-0.1) 03/14/20 05:35 Absolute Nucleated RBC 0.0 /100WBC 03/14/20 05:35 Total Counted 100 03/11/20 05:53 Neutrophils % (Manual) 79 % (39-76) H 03/11/20 05:53 Band Neutrophils % 10 % (0-10) 03/09/20 12:00 Lymphocytes % (Manual) 10 % (13-43) L 03/11/20 05:53 Monocytes % (Manual) 10 % (4-9) H 03/11/20 05:53 Eosinophils % (Manual) 1 % (0-6) 03/11/20 05:53 Plt Morphology Comment Normal (NORMAL) 03/11/20 05:53 RBC Morphology Normal (NORMAL) 03/11/20 05:53 ESR 13 MM/HOUR (0-15) 03/14/20 05:35 PT 14.0 SECONDS (11.8-14.3) 03/09/20 12:00 INR Target Range - 03/09/20 12:00 INR 1.12 (0.8-1.3) 03/09/20 12:00 APTT 29.7 SECONDS (22.9-36.5) 03/09/20 12:00 PTT Comment - 03/09/20 12:00 D-Dimer 3.86 ug/ml (0.0-0.57) H* 03/09/20 12:00 Sample Site Rra 03/14/20 05:58 ABG pH 7.150 (7.35-7.45) L* 03/14/20 05:58 ABG pCO2 92.0 mmHg (35.0-45.0) H* 03/14/20 05:58 ABG pO2 94.0 mmHg (80.0-100.0) 03/14/20 05:58 ABG HCO3 32.0 mmol/L (22-26) H* 03/14/20 05:58 ABG O2 Saturation 95.0 % (90-100) 03/14/20 05:58 ABG Base Excess 0.7 mmol/L (-2.0-2.0) 03/14/20 05:58 Adolph Test Pos 03/14/20 05:58 A-a Gradient 219.0 mmHg 03/14/20 05:58 FiO2 60.0 03/14/20 05:58 Blood Gas Comments Pt love well eb 03/14/20 05:58 Sodium 142 mmol/L (136-145) 03/14/20 05:35 Corrected Sodium TNP 03/14/20 05:35 Potassium 5.9 mmol/L (3.5-5.1) H 03/14/20 05:35 Chloride 106 mmol/L (98-107) 03/14/20 05:35 Carbon Dioxide 31.5 mmol/L (21-32) 03/14/20 05:35 BUN 49 mg/dL (7-18) H 03/14/20 05:35 Creatinine 3.43 mg/dL (0.70-1.30) H 03/14/20 05:35 Est GFR (MDRD) Af Amer 24 (>60) L 03/14/20 05:35 Est GFR (MDRD) Non-Af 20 (>60) L 03/14/20 05:35 Glucose 106 mg/dL (65-99) H 03/14/20 05:35 Lactic Acid 1.9 mmol/L (0.4-2.0) 03/10/20 10:50 Calcium 8.6 mg/dL (8.5-10.1) 03/14/20 05:35 Corrected Calcium 10.0 mg/dL (8.5-10.1) 03/14/20 05:35 Magnesium 2.3 mg/dL (1.7-2.9) 03/09/20 12:00 Total Bilirubin 0.70 mg/dL (0.2-1.0) 03/14/20 05:35 AST 266 Units/L (15-37) H 03/14/20 05:35 ALT 142 Units/L (12-78) H 03/14/20 05:35 Alkaline Phosphatase 531 Units/L (46-116) H 03/14/20 05:35 Creatine Kinase 81 Units/L (39-308) 03/09/20 12:00 CK-MB (CK-2) 2.8 ng/mL (0-4.0) 03/09/20 12:00 CK/CKMB % Calc 3.5 % (<4) 03/09/20 12:00 Troponin I 0.45 ng/mL (0-1.5) 03/09/20 12:00 C-Reactive Protein 34.90 mg/L (0-3.0) H 03/14/20 05:35 B-Natriuretic Peptide 242 pg/mL (0-79) H 03/09/20 12:00 Total Protein 5.1 g/dL (6.4-8.2) L 03/14/20 05:35 Albumin 2.3 g/dL (3.4-5.0) L 03/14/20 05:35 Globulin 2.8 g/dL (2.5-4.5) 03/14/20 05:35 Albumin/Globulin Ratio 0.8 Ratio (1.1-2.1) L 03/14/20 05:35 Stool Description Ifob 03/09/20 11:55 Stl Occult Blood (IFOB) Positive (NEGATIVE) A 03/09/20 11:55 SARS-CoV-2 (PCR) Negative (NEGATIVE) 03/09/20 14:18 - Plan (1) Palliative care status Status: Acute (2) Pneumonia Status: Acute Qualifiers: Pneumonia type: due to unspecified organism Laterality: bilateral Lung location: unspecified part of lung Qualified Code(s): J18.9 - Pneumonia, unspecified organism (3) Acute renal failure Status: Acute Qualifiers: Acute renal failure type: unspecified Qualified Code(s): N17.9 - Acute kidney failure, unspecified (4) Respiratory failure Status: Acute Qualifiers: Chronicity: acute Respiratory failure complication: hypoxia and hypercapnia Qualified Code(s): J96.01 - Acute respiratory failure with hypoxia; J96.02 - Acute respiratory failure with hypercapnia (5) Metastatic disease Status: Acute Qualifiers: Area of secondary neoplastic involvement: other site Qualified Code(s): C79.89 - Secondary malignant neoplasm of other specified sites (6) Chronic kidney disease (CKD) Status: Chronic Qualifiers: Chronic kidney disease stage: stage 3 (moderate) (7) History of lymphoma Status: Chronic (8) Hypothyroidism Status: Chronic Qualifiers: Hypothyroidism type: acquired Qualified Code(s): E03.9 - Hypothyroidism, unspecified (9) Mental retardation Status: Chronic
[2020-03-14] MEDS ORDERED: VERSED 100 MG in NS 100 ML IV 80 ML IV PRN (14:45)
[2020-03-14 14:54] VITALS: BP 81/52
[2020-03-14] MEDS ORDERED: MORPHINE SULFATE PCA 30 MG IVP SCH (15:00)
[2020-03-14] MEDS ORDERED: MORPHINE SULFATE PCA 30 MG ONE (15:11)
[2020-03-14] MEDS ORDERED: FORTAZ or TAZICEF VIAL INJ 1 G in NS 100 ML IV + SPIKE MINIBAG* 100 ML IV SCH (21:00)
== END 2020-03-14 18:20 | disposition expired | DRG 193 ==
LOC: ER 11:38 → INTOOBSV 14:29 → MED/SURG 14:29
PROVIDERS: ADMIT Internal Medicine; ATTEND Internal Medicine
DX: I50.9 Heart failure, unspecified; R59.0 Localized enlarged lymph nodes; C78.7 Secondary malignant neoplasm of liver and intrahepatic bile duct; K92.2 Gastrointestinal hemorrhage, unspecified; Z20.828 Contact with and (suspected) exposure to other viral communicable diseases; E03.8 Other specified hypothyroidism; R94.31 Abnormal electrocardiogram [ECG] [EKG]; N18.30 Chronic kidney disease, stage 3 unspecified; J90 Pleural effusion, not elsewhere classified; J96.02 Acute respiratory failure with hypercapnia; J18.9 Pneumonia, unspecified organism; I46.9 Cardiac arrest, cause unspecified; J96.01 Acute respiratory failure with hypoxia; F79 Unspecified intellectual disabilities; I95.89 Other hypotension; Z51.5 Encounter for palliative care; I87.2 Venous insufficiency (chronic) (peripheral); R60.0 Localized edema; C18.9 Malignant neoplasm of colon, unspecified